=== PATIENT | male | born 1965 | race Caucasian/White ===

== ENCOUNTER → 2016-09-29 | Outpatient (CLI) | payer OTHER ==
[~2016-09-29] MED LIST: AMT50 PO; ATOR-22 PO; CITA40TA12 PO; CLBCRM30 EXT; CLOB-65 EXT; FURO-85 PO; GABA800T PO; GLC/500 PO; GLIP10TA10 PO; INSU1.2I SQ; OXYC-106 PO; TRAM-10 PO
[2016-09-29 09:35] LABS: BASO % 0.6 %; BASO ABS # 0.06 K/uL (0-0.2); COMPLETE YES; EOS % 3.9 %; HEMATOCRIT 44.6 % (42-52); IG% 0.3 %; LYMPH % 39.8 %; LYMPH ABS # 3.93 K/uL (1.2-3.4); MEAN CELL VOLUME 86.9 fL (80-100); MEAN CORPUSCULAR HGB CONC 33.4 g/dl (32-36); MEAN PLATELET VOLUME 10.9 fL (7.4-10.4); MONO % 5.8 %; NEUT % 49.6 %; PLATELET COUNT 245 K/uL (130-400); RED BLOOD COUNT 5.13 M/uL (4.7-6.1); WHITE BLOOD COUNT 9.87 K/uL (4.8-10.8)
[2016-09-29 09:50] LABS: ESTIMATED AVERAGE GLUCOSE 192 mg/dl; HA1C FLAG Normal (Normal)
[2016-09-29 09:57] LABS: ALT/SGPT 20 U/L (12-78); AST/SGOT 6 U/L (15-37); BLOOD UREA NITROGEN 12 mg/dl (7-18); BUN/CREATININE RATIO 15.8 (10-20); CALCIUM 8.7 mg/dl (8.5-10.1); CARBON DIOXIDE 31 mmol/L (21-32); CHLORIDE 102 mmol/L (98-107); CREATININE 0.77 mg/dl (0.60-1.40); GLUCOSE 156 mg/dl (70-99); POTASSIUM 4.2 mmol/L (3.5-5.1); SODIUM 140 mmol/L (136-145); URIC ACID 5.7 mg/dl (2.6-7.2)
[2016-09-29 10:11] LABS: ALB/GLOB RATIO 1.1 (0.9-2); ALKALINE PHOSPHATASE 126 U/L (45-117); CHOLESTEROL 182 mg/dl (0-200); CHOLESTEROL/HDL RATIO 5.1; HDL CHOLESTEROL 36 mg/dl; LDL CHOLESTEROL CALCULATED 97 mg/dl; TRIGLYCERIDES 246 mg/dl (0-150); VERY LOW DENSITY LIPOPROT CALC 49 mg/dl
== END | disposition home or self-care (01) ==
LOC: C.LAB1850 08:46
DX: E11.65 Type 2 diabetes mellitus with hyperglycemia (principal); E78.2 Mixed hyperlipidemia; I70.219 Atherosclerosis of native arteries of extremities with intermittent claudication, unspecified extremity; E66.8 Other obesity

== ENCOUNTER 2017-02-24 11:17 | Emergency (ER) | payer OTHER ==
[~2017-02-24] VITALS: Ht 180.3 cm; Wt 115.2 kg
[~2017-02-24 11:17] MED LIST changes: -CLBCRM30 EXT; -FURO-85 PO; -INSU1.2I SQ; -OXYC-106 PO
[2017-02-24 11:20] VITALS: TEMP 36.5; Ht 180.3 cm; Wt 115.2 kg
[2017-02-24] MEDS ORDERED: FURO-85 PO (11:37)
[2017-02-24] MEDS ORDERED: CLBCRM30 EXT (11:37)
[2017-02-24] MEDS ORDERED: OXYC-106 PO (11:37)
[2017-02-24] MEDS ORDERED: INSU1.2I SQ ×2 (11:37)
--- NOTE | 2017-02-24 13:13 | DIAGNOSTIC IMAGING REPORT ---
ULTRASOUND BILATERAL LOWER EXTREMITY VENOUS CLINICAL HISTORY: Leg swelling. COMPARISON STUDY: No priors. TECHNIQUE: Real-time, grayscale, and color Doppler sonography of the deep veins of the right and left lower extremity was performed from the inguinal crease to the calf. Compression and augmentation were utilized. FINDINGS: There is no sonographic evidence of deep venous thrombosis identified in the right or left lower extremity. The common femoral, superficial femoral, and popliteal veins are patent and normally compressible bilaterally. The greater saphenous vein and the profunda femoris vein at the junction with the common femoral vein are clear in both legs. The visualized calf veins are patent bilaterally. Subcutaneous soft tissue edema is noted. IMPRESSION: There is no sonographic evidence of deep venous thrombosis identified in the right or left lower extremity. Electronically signed by: Nadeem Rollins M.D. 02/24/2017 1:11 PM Dictated Date/Time: 02/24/2017 1:11 PM
--- NOTE | 2017-02-24 13:18 | DIAGNOSTIC IMAGING REPORT ---
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 There is minimal collateral reconstitution of the popliteal artery is monophasic and dampened waveforms. There is minimal low flow states of the 3 arterial structures of the lower leg. IMPRESSION: 1. Occlusion of the proximal to mid superficial femoral artery. 2. Dampened flow distal to the occlusion presumably secondary to a very low flow state Electronically signed by: Jae Saravia M.D. 02/24/2017 1:16 PM Dictated Date/Time: 02/24/2017 1:13 PM
[2017-02-24 14:22] LABS: BASO % 0.3 %; BASO ABS # 0.03 K/uL (0-0.2); COMPLETE YES; EOS % 2.7 %; HEMATOCRIT 41.4 % (42-52); IG% 0.2 %; LYMPH % 34.9 %; LYMPH ABS # 3.33 K/uL (1.2-3.4); MEAN CELL VOLUME 89.8 fL (80-100); MEAN CORPUSCULAR HEMOGLOBIN 29.9 pg (25-34); MEAN CORPUSCULAR HGB CONC 33.3 g/dl (32-36); MEAN PLATELET VOLUME 10.8 fL (7.4-10.4); NEUT % 54.9 %; PLATELET COUNT 214 K/uL (130-400); RED BLOOD COUNT 4.61 M/uL (4.7-6.1); WHITE BLOOD COUNT 9.55 K/uL (4.8-10.8)
[2017-02-24 14:31] LABS: INR 0.9 (0.9-1.1); PROTHROMBIN TIME (PATIENT) 9.8 SECONDS (9.0-12.0)
[2017-02-24 14:46] LABS: BUN/CREATININE RATIO 21.9 (10-20); CALCIUM 9.4 mg/dl (8.5-10.1); CREATININE 0.91 mg/dl (0.60-1.40); POTASSIUM 4.6 mmol/L (3.5-5.1)
[2017-02-24 14:57] VITALS: BP 146/76; PULSE 83; O2SAT 97
--- NOTE | 2017-02-24 18:13 | EMERGENCY ROOM VISIT NOTE ---
History Report prepared by Ramiro: Lilo Mane Under the Supervision of: Dr. Roger Saenz M.D. First contact with patient: 11:33 Chief Complaint: CALF PAIN Stated Complaint: L CALF PAIN W/ EDEMA, R/O DVT History of Present Illness The patient is a 51 year old male who presents to the Emergency Room with complaints of worsening bilateral lower leg pain beginning 2 weeks prior to arrival. The patient states that he is experiencing pain, tenderness and redness to both his lower legs. He states the left is worse than the right. The patient saw his PCP and then sent to [facility] yesterday. He had testing done yesterday and the thought is neuropathy at the moment. He was put on Augmentin and Amoxicillin by his PCP. He was on these antibiotics for 10 days and notes his symptoms improved. He has been off for 4 days and since stopping the antibiotics his symptoms have worsened. The patient was sent to the ED for an Ultrasound to be done to rule out a DVT. The patient has an appointment with vascular on March 04 for artery check. He is a diabetic and states that his sugars have been running normal. He denies chest pain, shortness of breath, fevers, or vomiting. Source of History: patient Onset: 2 weeks [employer]OR [employer]OM[employer] Position: leg (bilateral) Quality: other (pain, tenderness and redness) Timing: worsening Associated Symptoms: No fevers, No chest pain, No SOB, No vomiting Review of Systems See HPI for pertinent positives & negatives. A total of 10 systems reviewed and were otherwise negative. Past Medical & Surgical Medical Problems: (1) Diabetes Family History Cancer Diabetes mellitus FHx: gallbladder disease Heart disease Hypertension Kidney disease Kidney stones Lung disease Social History Smoking Status: Current Every Day Smoker Alcohol Use: none Marital Status: in relationship Housing Status: lives with significant other Occupation Status: unemployed Current/Historical Medications Scheduled Atorvastatin (Lipitor), 20 MG PO DAILY Citalopram Hydrobromide (Celexa), 40 MG PO DAILY Furosemide (Lasix), 20 MG PO BID Gabapentin (Neurontin), 800 MG PO TID Insulin Glargine (Toujeo Solostar), 30 UNITS SQ QAM Insulin Glargine (Toujeo Solostar), 54 UNITS SQ QPM Metformin Hcl (Glucophage), 1,500 MG PO QAM Metformin Hcl (Glucophage), 500 MG PO QPM Scheduled PRN Amitriptyline Hcl (Elavil), 50 MG PO HS PRN for Sleep Oxycodone/Acetaminophen 10MG/325MG (Percocet 10MG/325MG), 1 TAB PO Q6H PRN for Pain Miscellaneous Medications Clobetasol Propionate (Clobetasol Propionate Cream 0.05%), 1 APPLN EXT Allergies Coded Allergies: Aspirin (Verified Allergy, Mild, hives and rash, 02/24/17) Physical Exam Vital Signs Date Time Temp Pulse Resp B/P (MAP) Pulse Ox O2 Delivery O2 Flow Rate FiO2 02/24/17 14:57 83 18 146/76 97 02/24/17 13:22 87 18 144/73 97 Room Air 02/24/17 11:20 36.5 88 20 126/77 96 Room Air Physical Exam Constitutional: Vital signs reviewed. Eyes: Pupils are equal round reactive to light. Conjunctiva are noninjected. ENT: Pharynx is clear without erythema or exudate. Mucous membranes are moist. Neck supple without meningeal signs. Respiratory: Clear to auscultation bilaterally. Breath sounds are equal bilaterally. Cardiovascular: Regular rate and rhythm. No rubs or gallops. GI: Soft, nondistended and nontender. Bowel sounds are present. Musculoskeletal: Bilateral lower extremity edema, greater to left calf. Diffuse tenderness to calf. Capillary refill delayed in both feet. No increased warmth. Bilateral rubor to the feet without paleness or cyanosis. No necrosis to the toes. Integumentary: As above. Neurological: The patient is awake and alert. No focal deficits. Psychiatric: Normal affect. Medical Decision & Procedures ER Provider Diagnostic Interpretation: US results as stated below per my review and radiologist interpretation. ULTRASOUND BILATERAL LOWER EXTREMITY VENOUS CLINICAL HISTORY: Leg swelling. COMPARISON STUDY: No priors. TECHNIQUE: Real-time, grayscale, and color Doppler sonography of the deep veins of the right and left lower extremity was performed from the inguinal crease to the calf. Compression and augmentation were utilized. FINDINGS: There is no sonographic evidence of deep venous thrombosis identified in the right or left lower extremity. The common femoral, superficial femoral, and popliteal veins are patent and normally compressible bilaterally. The greater saphenous vein and the profunda femoris vein at the junction with the common femoral vein are clear in both legs. The visualized calf veins are patent bilaterally. Subcutaneous soft tissue edema is noted. IMPRESSION: There is no sonographic evidence of deep venous thrombosis identified in the right or left lower extremity. Electronically signed by: Nadeem Rollins M.D. 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 There is minimal collateral reconstitution of the popliteal artery is monophasic and dampened waveforms. There is minimal low flow states of the 3 arterial structures of the lower leg. IMPRESSION: 1. Occlusion of the proximal to mid superficial femoral artery. 2. Dampened flow distal to the occlusion presumably secondary to a very low flow state Electronically signed by: Jae Saravia M.D. 02/24/2017 1:16 PM Dictated Date/Time: 02/24/2017 1:13 PM Laboratory Results 02/24/17 14:01 Red Blood Count 4.61, Mean Corpuscular Volume 89.8, Mean Corpuscular Hemoglobin 29.9, Mean Corpuscular Hemoglobin Concent 33.3, Mean Platelet Volume 10.8, Neutrophils (%) (Auto) 54.9, Lymphocytes (%) (Auto) 34.9, Monocytes (%) (Auto) 7.0, Eosinophils (%) (Auto) 2.7, Basophils (%) (Auto) 0.3, Neutrophils # (Auto) 5.24, Lymphocytes # (Auto) 3.33, Monocytes # (Auto) 0.67, Eosinophils # (Auto) 0.26, Basophils # (Auto) 0.03 02/24/17 14:01 Test 02/24/17 14:01 White Blood Count 9.55 K/uL (4.8-10.8) Red Blood Count 4.61 M/uL (4.7-6.1) Hemoglobin 13.8 g/dL (14.0-18.0) Hematocrit 41.4 % (42-52) Mean Corpuscular Volume 89.8 fL (80-100) Mean Corpuscular Hemoglobin 29.9 pg (25-34) Mean Corpuscular Hemoglobin Concent 33.3 g/dl (32-36) Platelet Count 214 K/uL (130-400) Mean Platelet Volume 10.8 fL (7.4-10.4) Neutrophils (%) (Auto) 54.9 % Lymphocytes (%) (Auto) 34.9 % Monocytes (%) (Auto) 7.0 % Eosinophils (%) (Auto) 2.7 % Basophils (%) (Auto) 0.3 % Neutrophils # (Auto) 5.24 K/uL (1.4-6.5) Lymphocytes # (Auto) 3.33 K/uL (1.2-3.4) Monocytes # (Auto) 0.67 K/uL (0.11-0.59) Eosinophils # (Auto) 0.26 K/uL (0-0.5) Basophils # (Auto) 0.03 K/uL (0-0.2) RDW Standard Deviation 43.5 fL (36.4-46.3) RDW Coefficient of Variation 13.2 % (11.5-14.5) Immature Granulocyte % (Auto) 0.2 % Immature Granulocyte # (Auto) 0.02 K/uL (0.00-0.02) Prothrombin Time 9.8 SECONDS (9.0-12.0) Prothromb Time International Ratio 0.9 (0.9-1.1) Activated Partial Thromboplast Time 26.2 SECONDS (21.0-31.0) Partial Thromboplastin Ratio 1.0 Anion Gap 5.0 mmol/L (3-11) Est Creatinine Clear Calc Drug Dose 123.9 ml/min Estimated GFR () 112.7 Estimated GFR (Non- 97.2 BUN/Creatinine Ratio 21.9 (10-20) Calcium Level 9.4 mg/dl (8.5-10.1) Laboratory results as reviewed by me. ED Course 1133: The patient was evaluated in room C1. A complete history and physical exam was performed. 1153: The patient is refusing blood work. 1350: I spoke with Dr. Crow Tran about the patient. He says no acute intervention is needed. He will see the patient is the office tomorrow. bed manager is making the appointment. The patient is good with the plan. 1440: Upon reevaluation, the patient appeared to have improvement of his symptoms. I discussed tonight's findings with him. He verbalized agreement of the treatment plan. He was discharged home. Medical Decision This is a 51-year-old male who presents with left leg pain and swelling. Differential diagnosis includes DVT, superficial thrombophlebitis, arterial occlusion, claudication, cellulitis. I did perform a limited focused review of portions of the patient's old chart on the electronic medical record. The patient has had no recent pertinent visits to this hospital. Medication Reconciliation: I attest that I have personally reviewed the patient' s current medication list. Blood Pressure Screening: Patient was found to have normal blood pressure on screening and does not require follow-up. I did evaluate the patient as noted above. I did an arterial Doppler ultrasound of the left leg and a venous Doppler of both legs. I did review the images myself as well as the radiology report as described above. There is no DVT. He does have occlusion of the superficial femoral artery on the left side. I did order and review the patient's blood work as noted in the electronic medical record. I did discuss the test result with the patient. I did discuss case with Dr. Neff who stated that he would see the patient in the office tomorrow. The field case manager made an appointment for the patient at 9: 30 AM. The patient was discharged and will follow up tomorrow morning with Dr. Neff. Consults Time Called: 1340 Consulting Physician: Dr. Crow Johnson [facility] Returned Call: [address] Crow Johnson [facility] about the patient. He says no acute intervention is needed. He will see the patient is the office tomorrow. bed manager is making the appointment. The patient is good with the plan. Impression Primary Impression: Occlusion of artery of leg Scribe Attestation The scribe's documentation has been prepared under my direct and personally reviewed by me in its entirety. I confirm that the note above accurately reflects all work, treatment, procedures, and medical decision making performed by me. Departure Information Dispostion Home / Self-Care Referrals Rah Lambert M.D. (PCP) Forms HOME CARE DOCUMENTATION FORM, IMPORTANT VISIT INFORMATION Patient Instructions My [facility], O[place] Acute Arterial Additional Instructions You have been examined and treated today on an emergency basis only. This is not a substitute for, or an effort to provide, complete comprehensive medical care. It is impossible to recognize and treat all injuries or illnesses in a single emergency department visit. It is therefore important that you follow up closely with Dr. Neff of vascular surgery tomorrow at 9:30 AM. Return for worsening symptoms or if you develop any other concerning symptoms as outlined in her discharge papers.
== END 2017-02-24 14:59 | disposition home or self-care (01) ==
LOC: C.EDB 11:17 → C.EDC 14:59
DX: I74.3 Embolism and thrombosis of arteries of the lower extremities (principal); E11.9 Type 2 diabetes mellitus without complications; Z80.9 Family history of malignant neoplasm, unspecified; Z83.3 Family history of diabetes mellitus; Z82.49 Family history of ischemic heart disease and other diseases of the circulatory system; Z84.1 Family history of disorders of kidney and ureter; F17.210 Nicotine dependence, cigarettes, uncomplicated; Z79.899 Other long term (current) drug therapy

== ENCOUNTER → 2017-04-13 | Outpatient (CLI) | payer OTHER ==
[~2017-04-13] MED LIST changes: +CLBCRM30 EXT; -CLOB-65 EXT; +FURO-85 PO; -GLIP10TA10 PO; +INSU1.2I SQ; +OXYC-106 PO; -TRAM-10 PO
--- NOTE | 2017-04-13 16:08 | DIAGNOSTIC IMAGING REPORT ---
BILATERAL CAROTID DOPPLER STUDY HISTORY: Atypical CHEST PAIN, Edema, pt WENT TO NUCLE C[facility] FIRST COMPARISON: None. TECHNIQUE: Real-time, grayscale, and color Doppler sonography of the carotid arteries was performed. Imaging reviewed in the transverse and longitudinal planes. All measurements were calculated based on NASCET criteria. FINDINGS: Antegrade flow is seen in the bilateral vertebral arteries. The brachial pressures are hemodynamically similar. There is complete occlusion of the right ICA. This is age indeterminate. Mild to moderate calcified plaque within the left carotid bifurcation. Elevated peak systolic velocity within the right external carotid artery of 222 cm/s. Elevated peak systolic velocity within the left external carotid artery of 422 cm/s. The peak systolic velocity within the left ICA is 192 cm/s proximally. The left systolic ratio is 2.3. IMPRESSION: 1. Complete occlusion of the right ICA which is age indeterminate. 2. Approximately 50-69% stenosis within the proximal left ICA. 3. 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 Electronically signed by: Krunal Tavarez M.D. 04/13/2017 4:06 PM Dictated Date/Time: 04/13/2017 4:03 PM
--- NOTE | 2017-04-13 17:51 | ECHOCARDIOGRAM REPORT ---
*NOTICE TO RECEIVING REPUBLICAN AGENCY This information is strictly Confidential and protected under [place] law. [place] law prohibits you from making any further disclosure of this information unless further disclosure is expressly permitted by the written consent of the person to whom it pertains or is authorized by law. A general authorization for the release of medical or other information is not sufficient for this purpose. Hospital accepts no responsibility if the information is made available to any other person, INCLUDING THE PATIENT. Interpretation Summary * : POR ROSAS Study Date: 04/13/2017 02:20 PM * Patient Location: [facility] HR: 87 * : 1965 (M/d/yyyy) Gender: Male Height: 71 in * Age: 51 yrs Ethnicity: CA Weight: 249 lb * Ordering Physician: Rah Lambert * Referring Physician: Rah Lambert * Performed By: Irina Blanton RCS * * Reason For Study: CHEST PAIN * BSA: 2.3 m2 * -- Conclusions -- * There is moderate concentric left ventricular hypertrophy. * Left ventricular systolic function is normal. * Grade I diastolic dysfunction, (abnormal relaxation pattern). * There are regional wall motion abnormalities as specified. * Aortic valve sclerosis mild, without significant aortic valvular stenosis. Procedure Details * A complete two-dimensional transthoracic echocardiogram was performed (2D, M-mode, Doppler and color flow Doppler). * The study was technically difficult. * A contrast injection of Definity was performed to improve assessment of LV function. * Contrast was injected into an intravenous site in the left arm. * One vial of Definity ultrasound contrast was diluted in normal saline to a total volume of 10 ml. A total of '3' ml of solution was administered during imaging. * Lot # [id number] of Definity utilized for procedure. * Expiration date JUN 02. * The attending nurse who injected the contrast agent was LOIS TUCKER [facility], RN. Left Ventricle * The left ventricle is normal in size. * There is moderate concentric left ventricular hypertrophy. * Left ventricular systolic function is normal. * Grade I diastolic dysfunction, (abnormal relaxation pattern). * Ejection Fraction = 55-60%. * There are regional wall motion abnormalities as specified. * The apical portions of the lateral and anterior wall were moderately hypokinetic Atria * The left atrial size is normal. * Right atrial size is normal. Mitral Valve * The mitral valve is grossly normal. * Significant mitral regurgitation is absent. Tricuspid Valve * The tricuspid valve is not well visualized. * Significant tricuspid regurgitation is absent. Aortic Valve * The aortic valve is not well visualized. * Aortic valve sclerosis mild, without significant aortic valvular stenosis. * No hemodynamically significant valvular aortic stenosis. * There is no significant aortic regurgitation. Great Vessels * The aortic root is normal size. Pericardium/Pleural * There is no pericardial effusion. Great Vessels * Normal inferior vena cava diameter and respiratory variation suggests normal central venous pressure. MMode 2D Measurements and Calculations IVSd 1.5 cm IVSs 1.7 cm LVIDd 4.5 cm LVIDs 3.3 cm LVPWd 1.5 cm LVPWs 1.5 cm IVS/LVPW 0.96 FS 27.4 % EDV(Teich) 92.1 ml ESV(Teich) 42.9 ml EF(Teich) 53.4 % EDV(cubed) 90.7 ml ESV(cubed) 34.7 ml EF(cubed) 61.7 % % IVS thick 16.8 % % LVPW thick -1.73 % LV mass(C)d 275.2 grams LV mass(C)dI 118.9 grams/m\S\2 LV mass(C)s 198.3 grams LV mass(C)sI 85.7 grams/m\S\2 SV(Teich) 49.2 ml SI(Teich) 21.3 ml/m\S\2 SV(cubed) 56.0 ml SI(cubed) 24.2 ml/m\S\2 Ao root diam 3.8 cm Ao root area 11.4 cm\S\2 LA dimension 3.2 cm LA/Ao 0.84 LVOT diam 2.0 cm LVOT area 3.2 cm\S\2 Doppler Measurements and Calculations MV E max levi 72.4 cm/sec MV A max levi 86.5 cm/sec MV E/A 0.84 MV P1/2t max levi 75.3 cm/sec MV P1/2t 65.1 msec MVA(P1/2t) 3.4 cm\S\2 MV dec slope 339.0 cm/sec\S\2 MV dec time 0.23 sec Ao V2 max 154.2 cm/sec Ao max PG 9.5 mmHg Ao max PG (full) 2.3 mmHg ARIANNE(V,A) 2.8 cm\S\2 ARIANNE(V,D) 2.8 cm\S\2 LV V1 max PG 7.2 mmHg LV V1 max 134.4 cm/sec MR max levi 461.4 cm/sec MR max PG 85.2 mmHg PA V2 max 140.1 cm/sec PA max PG 7.8 mmHg
--- NOTE | 2017-04-16 08:37 | MYOCARDIAL PERFUSION SCAN ---
STUDY TITLE: ONE-DAY NUCLEAR MEDICINE TECHNETIUM-99M CARDIOLITE MYOCARDIAL PERFUSION SCAN STUDY REQUESTED BY: Dr. Lambert. INDICATION: Lower extremity swelling, chest symptoms. EKG: Normal sinus rhythm, ventricular rate of 80 with a right bundle branch block, no significant ST abnormalities. STRESS EKG: Resting heart rate jimena from 80 to 103 representing 60% of maximum predicted heart rate. With stress he had [address] depressions in leads 2, aVF, V5 and V6. STUDY TECHNIQUE: For the stress portion of the study 34.0 mCi of technetium-99m Cardiolite IV was injected at 1325 on 04/13/2019. Thirty minutes following the injection, imaging of the heart was performed in multiple projections. For the rest portion of the study, 11.1 mCi of technetium-99m Cardiolite was injected IV at 11:30. One hour following injection, imaging of the heart was performed in the same projections. FINDINGS: Rotating raw images were reviewed in detail. There was minimal vertical motion most notable on stress. Also, minimal gut uptake impacting the inferior imaging border of the heart. There was no significant extracardiac pathologic uptake. Short axis, vertical long axis, horizontal long axis images were reviewed in detail. There was suggestion of RVH. There was questionable visual TID. There was a moderate to severe anterior, anteroseptal defect from the mid segment to the apex which was partially reversible. Overall sum difference score of 5. LV ejection fraction was 39%. LV was mildly dilated with end-diastolic volume of 198. There was severe apical, mid anterior and anterior septal wall hypokinesis. IMPRESSION: 1. Partially reversible perfusion defect involving the mid anterior, anteroseptal dodge to the apex consistent with possible LAD infarct with periinfarct ischemia. 2. Moderate LV dysfunction with an EF of 39%. Apical and mid anterior anteroseptal severe hypokinesis. 3. Positive Lexiscan EKG for ischemia with ST depressions in 2, aVF, V5 and V6. MTDD
== END | disposition home or self-care (01) ==
LOC: C.ULTR 11:14
DX: R07.9 Chest pain, unspecified (principal); R60.9 Edema, unspecified; E78.2 Mixed hyperlipidemia; I70.219 Atherosclerosis of native arteries of extremities with intermittent claudication, unspecified extremity; I65.23 Occlusion and stenosis of bilateral carotid arteries

== ENCOUNTER 2017-06-16 13:50 | Emergency (ER) | payer OTHER ==
[~2017-06-16] VITALS: Ht 180.3 cm; Wt 116.0 kg
[2017-06-16 14:03] VITALS: TEMP 37; Ht 180.3 cm; Wt 116.0 kg
--- NOTE | 2017-06-16 14:45 | DIAGNOSTIC IMAGING REPORT ---
SINGLE VIEW CHEST CLINICAL HISTORY: Fever. FINDINGS: An AP, portable, upright chest radiograph is obtained. No prior studies are available for comparison at the time of dictation. The examination is degraded by portable technique, large body habitus, and patient rotation. The heart is enlarged. The pulmonary vasculature is noncongested. There is mild bibasilar atelectasis. The lungs and pleural spaces are otherwise clear. No pneumothorax is seen. The bony thorax is grossly intact. IMPRESSION: Cardiomegaly with no acute cardiopulmonary abnormality. Electronically signed by: Nadeem Rollins M.D. 06/16/2017 2:44 PM Dictated Date/Time: 06/16/2017 2:43 PM
--- NOTE | 2017-06-16 14:49 | DIAGNOSTIC IMAGING REPORT ---
L TIBIA/FIBULA 2 VIEWS ROUTINE CLINICAL HISTORY: Left person pain. Fever. COMPARISON: None FINDINGS: No fracture within the left tibia or fibula is identified. There is no radiographic evidence of osteomyelitis. There is a possible wound of the anterolateral aspect of the left lower leg. No radiopaque foreign bodies are identified. There is left lower extremity edema. IMPRESSION: 1. No acute fracture or radiographic evidence of osteomyelitis within left tibia or fibula. 2. Possible left lower leg wound, as described above. No radiopaque foreign body. Left lower extremity edema. Electronically signed by: Valeriy Arce M.D. 06/16/2017 2:48 PM Dictated Date/Time: 06/16/2017 2:44 PM
[2017-06-16 15:00] LABS: HEMATOCRIT 31.5 % (42-52); MEAN CELL VOLUME 88.2 fL (80-100); MEAN CORPUSCULAR HEMOGLOBIN 29.1 pg (25-34); MEAN PLATELET VOLUME 9.4 fL (7.4-10.4); PLATELET COUNT 450 K/uL (130-400); RED BLOOD COUNT 3.57 M/uL (4.7-6.1)
[2017-06-16] MEDS ORDERED: MoRPHine SULFATE 4 MG/ML 1 ML CARP\\VIAL IV STA (15:08)
[2017-06-16 15:18] LABS: PROTHROMBIN TIME (PATIENT) 10.8 SECONDS (9.0-12.0)
[2017-06-16 15:22] LABS: BUN/CREATININE RATIO 29.3 (10-20); CALCIUM 9.1 mg/dl (8.5-10.1); CREATININE 0.82 mg/dl (0.60-1.40); POTASSIUM 4.4 mmol/L (3.5-5.1)
[2017-06-16 15:23] LABS: BASO % 0.2 %; BASO ABS # 0.06 K/uL (0-0.2); COMPLETE YES; EOS % 0.2 %; IG% 0.8 %; LYMPH % 7.8 %; LYMPH ABS # 2.35 K/uL (1.2-3.4); MONO % 7.1 %; NEUT % 83.9 %
[2017-06-16 15:31] LABS: CKMB/CK RATIO 1.6 (0-3.0)
[2017-06-16] MEDS ORDERED: VANCOMYCIN INJ 2,250 MG in SODIUM CHLORIDE 0.9% 500ML 500 ML IV STA (15:34)
[2017-06-16] MEDS ORDERED: SODIUM CHLORIDE 0.9% 1000ML 2,000 ML IV STA (15:34)
[2017-06-16] MEDS ORDERED: ONDANSETRON INJ 2 MG/ML 2 ML VIAL IV STA (15:34)
[2017-06-16] MEDS ORDERED: FRS/80 PO (15:43)
[2017-06-16] MEDS ORDERED: NTRGSL/4 UT (15:43)
[2017-06-16] MEDS ORDERED: METF-384 PO (15:43)
[2017-06-16] MEDS ORDERED: INSDGI SC ×2 (15:43)
[2017-06-16] MEDS ORDERED: ATOR-26 PO (15:43)
[2017-06-16] MEDS ORDERED: AMIT25TA9 PO (15:43)
[2017-06-16] MEDS ORDERED: ASPI81TA28 PO (15:46)
[2017-06-16] MEDS ORDERED: POTA-74 PO (15:46)
[2017-06-16] MEDS ORDERED: CARV3.122 PO (15:46)
[2017-06-16] MEDS ORDERED: POTA20TA13 PO (15:46)
[2017-06-16] MEDS ORDERED: DOCU-94 PO (15:46)
[2017-06-16] MEDS ORDERED: CLINDAMYCIN IV 600 MG in DEXTROSE 5% 50ML 50 ML IV ONE (16:15)
[2017-06-16] MEDS ORDERED: PIPERACILLIN/TAZOBACTAM 4.5 GM/100ML D5W IV STA (16:15)
[2017-06-16] MEDS ORDERED: CEFTRIAXONE SOD INJ 1,000 MG in DEXTROSE 5% 50ML 50 ML IV SCH (17:30)
[2017-06-16] MEDS ORDERED: ONDANSETRON INJ 2 MG/ML 2 ML VIAL IV PRN (17:30)
[2017-06-16] MEDS ORDERED: ACETAMINOPHEN 325 MG TAB PO PRN (17:30)
[2017-06-16] MEDS ORDERED: POLYETHYLENE (MIRALAX) 17 GM PACK PO PRN (17:30)
[2017-06-16] MEDS ORDERED: MAGNESIUM HYDROXIDE SUSP 30 ML UDC PO PRN (17:30)
[2017-06-16] MEDS ORDERED: ALUMINUM/MAGNESIUM/SIMETH (MAALOX MAX) 30 ML UDC PO PRN (17:30)
--- NOTE | 2017-06-16 19:04 | Medical Consult ---
Consultation Date of Consultation: Jun 16, 2017. Attending Physician: History of Present Illness consult #[id number] Family History Cancer Diabetes mellitus FHx: gallbladder disease Heart disease Hypertension Kidney disease Kidney stones Lung disease Social History Smoking Status: Current Every Day Smoker Marital Status: in relationship Housing Status: lives with significant other Occupation Status: unemployed Allergies Coded Allergies: Aspirin (Verified Allergy, Mild, hives and rash, 02/24/17) Current Inpatient Medications Current Inpatient Medications Medications (Trade) Dose Ordered Sig/Marc Route Start Time Stop Time Status Last Admin Dose Admin Vancomycin HCl 1000 mg/Sodium Chloride 270 ml @ 125 mls/hr Q12 IV 06/16/17 21:00 06/26/17 20:59 UNV Ceftriaxone Sodium 1000 mg/ Dextrose 60 ml @ 100 mls/hr Q24H IV 06/16/17 17:30 06/26/17 17:29 UNV Acetaminophen (Tylenol Tab) 650 mg Q4H PRN PO 06/16/17 17:30 07/16/17 17:29 Al Hydrox/Mg Hydrox/Simethicone (Maalox Max Susp) 15 ml Q4H PRN PO 06/16/17 17:30 07/16/17 17:29 Magnesium Hydroxide (Milk Of Magnesia Susp) 30 ml Q12H PRN PO 06/16/17 17:30 07/16/17 17:29 Ondansetron HCl (Zofran Inj) 4 mg Q6H PRN IV 06/16/17 17:30 07/16/17 17:29 Polyethylene (Miralax Powder Packet) 17 gm DAILY PRN PO 06/16/17 17:30 07/16/17 17:29 Physical Exam Date Time Temp Pulse Resp B/P (MAP) Pulse Ox O2 Delivery O2 Flow Rate FiO2 06/16/17 18:00 100 22 115/80 98 Nasal Cannula 2.0 06/16/17 16:00 92 20 121/69 93 Nasal Cannula 2.0 06/16/17 14:03 37.0 92 20 117/67 94 Room Air Laboratory Results Last 24 Hours Test 06/16/17 14:44 06/16/17 14:52 White Blood Count 30.00 K/uL Red Blood Count 3.57 M/uL Hemoglobin 10.4 g/dL Hematocrit 31.5 % Mean Corpuscular Volume 88.2 fL Mean Corpuscular Hemoglobin 29.1 pg Mean Corpuscular Hemoglobin Concent 33.0 g/dl Platelet Count 450 K/uL Mean Platelet Volume 9.4 fL Neutrophils (%) (Auto) 83.9 % Lymphocytes (%) (Auto) 7.8 % Monocytes (%) (Auto) 7.1 % Eosinophils (%) (Auto) 0.2 % Basophils (%) (Auto) 0.2 % Neutrophils # (Auto) 25.16 K/uL Lymphocytes # (Auto) 2.35 K/uL Monocytes # (Auto) 2.14 K/uL Eosinophils # (Auto) 0.05 K/uL Basophils # (Auto) 0.06 K/uL RDW Standard Deviation 45.4 fL RDW Coefficient of Variation 13.9 % Immature Granulocyte % (Auto) 0.8 % Immature Granulocyte # (Auto) 0.24 K/uL Prothrombin Time 10.8 SECONDS Prothromb Time International Ratio 1.0 Sodium Level 135 mmol/L Potassium Level 4.4 mmol/L Chloride Level 102 mmol/L Carbon Dioxide Level 26 mmol/L Anion Gap 8.0 mmol/L Blood Urea Nitrogen 24 mg/dl Creatinine 0.82 mg/dl Est Creatinine Clear Calc Drug Dose 138.0 ml/min Estimated GFR () 118.7 Estimated GFR (Non- 102.4 BUN/Creatinine Ratio 29.3 Random Glucose 202 mg/dl Calcium Level 9.1 mg/dl Magnesium Level 2.0 mg/dl Total Bilirubin 0.2 mg/dl Direct Bilirubin 0.1 mg/dl Aspartate Amino Transf (AST/SGOT) 12 U/L Alanine Aminotransferase (ALT/SGPT) 24 U/L Alkaline Phosphatase 226 U/L Total Creatine Kinase 88 U/L Creatine Kinase MB 1.4 ng/ml Creatine Kinase MB Ratio 1.6 Troponin I 0.805 ng/ml Total Protein 7.4 gm/dl Albumin 2.4 gm/dl Bedside Lactic Acid Venous 0.78 mmol/L
--- NOTE | 2017-06-16 19:58 | EMERGENCY ROOM VISIT NOTE ---
History Report prepared by Ramiro: Lexy Sanchez Under the Supervision of: Dr. Efrain Plata D.O. First contact with patient: 14:05 Chief Complaint: OTHER COMPLAINT Stated Complaint: AMS/WOUND TO LEG History of Present Illness The patient is a 51 year old male who presents to the Emergency Room with complaints of persistent left leg pain starting [employer]. The patient was scheduled to have his left lower leg amputated today for necrotic ulcers. He did not go to his appointment and states that he has been putting it off. His leg is very painful. He took Tylenol 2 hours ago. He is not on antibiotics. The pain is unchanged. He is unable to get up to go to the bathroom. Today his girlfriend was concerned because he had had a bowel movement in bed. His son states that he has been confused. He is alternating between being hot and sweaty and chills. He had a fever of 101 last night. He denies any headache, cough, rhinorrhea, chest pain, SOB, abdominal pain, nausea, vomiting, diarrhea, dysuria , back pain. He has a history of diabetic neuropathy. Source of History: patient, family Onset: P[employer]ATOR Position: leg (left) Quality: other (pain) Timing: other (persistent) Associated Symptoms: + fevers, + chills, + diaphoresis, No headache, No cough, No chest pain, No SOB, No nausea, No vomiting, No abdominal pain, No back pain, No diarrhea, No urinary symptoms Note: Pt is confused. Review of Systems See HPI for pertinent positives & negatives. A total of 10 systems reviewed and were otherwise negative. Past Medical & Surgical Medical Problems: (1) Diabetes (2) Sepsis Family History Cancer Diabetes mellitus FHx: gallbladder disease Heart disease Hypertension Kidney disease Kidney stones Lung disease Social History Smoking Status: Current Every Day Smoker Alcohol Use: none Marital Status: in relationship Housing Status: lives with significant other Occupation Status: unemployed Current/Historical Medications Scheduled Amitriptyline Hcl (Elavil), 25 MG PO HS Aspirin (Aspirin Ec), 81 MG PO DAILY Atorvastatin (Lipitor), 80 MG PO DAILY Carvedilol (Coreg), 3.125 MG PO BID Citalopram Hydrobromide (Celexa), 40 MG PO DAILY Docusate Sodium (Colace), 100 MG PO BID Furosemide (Lasix), 80 MG PO DAILY Gabapentin (Neurontin), 800 MG PO BID Insulin Glargine (Lantus), 30 UNITS SC QAM Insulin Glargine (Lantus), 40 UNITS SC QPM Metformin Hcl (Glucophage), 1,000 MG PO BID Oxycodone/Acetaminophen 10MG/325MG (Percocet 10MG/325MG), 1 TAB PO TID Potassium Chloride Microencaps (Potassium Chloride Er), 20 MEQ PO DAILY Scheduled PRN Nitroglycerin (Nitrostat), 0.4 MG UT UD PRN for Chest Pain Allergies Coded Allergies: Aspirin (Verified Allergy, Mild, hives and rash, 02/24/17) Physical Exam Vital Signs Date Time Temp Pulse Resp B/P (MAP) Pulse Ox O2 Delivery O2 Flow Rate FiO2 06/16/17 19:07 130 16 170/80 93 Nasal Cannula 3.0 06/16/17 18:00 100 22 115/80 98 Nasal Cannula 2.0 06/16/17 16:00 92 20 121/69 93 Nasal Cannula 2.0 06/16/17 14:03 37.0 92 20 117/67 94 Room Air Physical Exam GENERAL: Sitting up in bed, ill appearing, pale, slightly confused EYE EXAM: normal conjunctiva. OROPHARYNX: no exudate, no erythema, lips, buccal mucosa, and tongue normal and mucous membranes are moist NECK: supple, no nuchal rigidity, no adenopathy, non-tender LUNGS: Clear to auscultation. Normal chest wall mechanics HEART: no murmurs, S1 normal and S2 normal ABDOMEN: abdomen soft, non-tender, normo-active bowel sounds, no masses, no rebound or guarding. BACK: Back is symmetrical on inspection and there is no deformity, no midline tenderness, no CVA tenderness. SKIN: no rashes and no bruising UPPER EXTREMITIES: upper extremities are grossly normal. LOWER EXTREMITIES: Unable to obtain pulses. Erythema of the foot, person, and popliteal fossa. Necrotic ulcers on the left ankle superiorly to the mid calf. Foul smelling green purulent discharge. 4cm x 4cm. NEURO EXAM: Alert and oriented to place, but not year. Confused per son. No focal deficits. Unable to plantar and dorsiflex LLE. Medical Decision & Procedures ER Provider Diagnostic Interpretation: Radiology results as stated below per my review and the radiologist's interpretation: SINGLE VIEW CHEST CLINICAL HISTORY: Fever. FINDINGS: An AP, portable, upright chest radiograph is obtained. No prior studies are available for comparison at the time of dictation. The examination is degraded by portable technique, large body habitus, and patient rotation. The heart is enlarged. The pulmonary vasculature is noncongested. There is mild bibasilar atelectasis. The lungs and pleural spaces are otherwise clear. No pneumothorax is seen. The bony thorax is grossly intact. IMPRESSION: Cardiomegaly with no acute cardiopulmonary abnormality. Electronically signed by: Nadeem Rollins M.D. 06/16/2017 2:44 PM Dictated Date/Time: 06/16/2017 2:43 PM L TIBIA/FIBULA 2 VIEWS ROUTINE CLINICAL HISTORY: Left person pain. Fever. COMPARISON: None FINDINGS: No fracture within the left tibia or fibula is identified. There is no radiographic evidence of osteomyelitis. There is a possible wound of the anterolateral aspect of the left lower leg. No radiopaque foreign bodies are identified. There is left lower extremity edema. IMPRESSION: 1. No acute fracture or radiographic evidence of osteomyelitis within left tibia or fibula. 2. Possible left lower leg wound, as described above. No radiopaque foreign body. Left lower extremity edema. Electronically signed by: Valeriy Arce M.D. 06/16/2017 2:48 PM Dictated Date/Time: 06/16/2017 2:44 PM Laboratory Results 06/16/17 14:44 Red Blood Count 3.57, Mean Corpuscular Volume 88.2, Mean Corpuscular Hemoglobin 29.1, Mean Corpuscular Hemoglobin Concent 33.0, Mean Platelet Volume 9.4, Neutrophils (%) (Auto) 83.9, Lymphocytes (%) (Auto) 7.8, Monocytes (%) (Auto) 7.1, Eosinophils (%) (Auto) 0.2, Basophils (%) (Auto) 0.2, Neutrophils # (Auto) 25.16, Lymphocytes # (Auto) 2.35, Monocytes # (Auto) 2.14, Eosinophils # (Auto) 0.05, Basophils # (Auto) 0.06 06/16/17 14:44 Test 06/16/17 14:44 06/16/17 14:52 White Blood Count 30.00 K/uL (4.8-10.8) Red Blood Count 3.57 M/uL (4.7-6.1) Hemoglobin 10.4 g/dL (14.0-18.0) Hematocrit 31.5 % (42-52) Mean Corpuscular Volume 88.2 fL (80-100) Mean Corpuscular Hemoglobin 29.1 pg (25-34) Mean Corpuscular Hemoglobin Concent 33.0 g/dl (32-36) Platelet Count 450 K/uL (130-400) Mean Platelet Volume 9.4 fL (7.4-10.4) Neutrophils (%) (Auto) 83.9 % Lymphocytes (%) (Auto) 7.8 % Monocytes (%) (Auto) 7.1 % Eosinophils (%) (Auto) 0.2 % Basophils (%) (Auto) 0.2 % Neutrophils # (Auto) 25.16 K/uL (1.4-6.5) Lymphocytes # (Auto) 2.35 K/uL (1.2-3.4) Monocytes # (Auto) 2.14 K/uL (0.11-0.59) Eosinophils # (Auto) 0.05 K/uL (0-0.5) Basophils # (Auto) 0.06 K/uL (0-0.2) RDW Standard Deviation 45.4 fL (36.4-46.3) RDW Coefficient of Variation 13.9 % (11.5-14.5) Immature Granulocyte % (Auto) 0.8 % Immature Granulocyte # (Auto) 0.24 K/uL (0.00-0.02) Prothrombin Time 10.8 SECONDS (9.0-12.0) Prothromb Time International Ratio 1.0 (0.9-1.1) Anion Gap 8.0 mmol/L (3-11) Est Creatinine Clear Calc Drug Dose 138.0 ml/min Estimated GFR () 118.7 Estimated GFR (Non- 102.4 BUN/Creatinine Ratio 29.3 (10-20) Calcium Level 9.1 mg/dl (8.5-10.1) Magnesium Level 2.0 mg/dl (1.8-2.4) Total Bilirubin 0.2 mg/dl (0.2-1) Direct Bilirubin 0.1 mg/dl (0-0.2) Aspartate Amino Transf (AST/SGOT) 12 U/L (15-37) Alanine Aminotransferase (ALT/SGPT) 24 U/L (12-78) Alkaline Phosphatase 226 U/L (45-117) Total Creatine Kinase 88 U/L (39-308) Creatine Kinase MB 1.4 ng/ml (0.5-3.6) Creatine Kinase MB Ratio 1.6 (0-3.0) Troponin I 0.805 ng/ml (0-0.045) Total Protein 7.4 gm/dl (6.4-8.2) Albumin 2.4 gm/dl (3.4-5.0) Bedside Lactic Acid Venous 0.78 mmol/L (0.90-1.70) Laboratory results per my review. Medications Administered Medications (Trade) Dose Ordered Sig/Marc Route Start Time Stop Time Status Last Admin Dose Admin Morphine Sulfate (MoRPHine SULFATE INJ) 4 mg NOW STAT IV 06/16/17 15:08 06/16/17 15:09 DC 06/16/17 15:19 4 MG Sodium Chloride 2,000 ml @ 999 mls/hr Q2H1M STAT IV 06/16/17 15:34 06/16/17 17:34 DC 06/16/17 16:11 999 MLS/HR Ondansetron HCl (Zofran Inj) 4 mg NOW STAT IV 06/16/17 15:34 06/16/17 15:36 DC 06/16/17 16:11 4 MG Vancomycin HCl 2250 mg/Sodium Chloride 545 ml @ 200 mls/hr ONE STAT IV 06/16/17 15:34 06/16/17 18:17 DC 06/16/17 16:11 200 MLS/HR Piperacillin Sod/ Tazobactam Sod (Zosyn Iv) 4.5 gm NOW STAT IV 06/16/17 16:15 06/16/17 16:16 DC 06/16/17 16:15 4.5 GM Clindamycin Phosphate 600 mg/ Dextrose 54 ml @ 100 mls/hr NOW ONCE IV 06/16/17 16:15 06/16/17 16:47 DC 06/16/17 16:15 100 MLS/HR ECG Indication: altered mental status Rate (beats per minute): 92 Rhythm: sinus rhythm Findings: nonspecific-ST abn (Lateral), Q waves (Septal), RBBB, other (normal axis) ED Course ED COURSE: Vital signs were reviewed and showed normal vitals The patients medical record was reviewed The above diagnostic studies were performed and reviewed. ED treatments and interventions as stated above. 1412: The patient was evaluated in room C1B. A complete history and physical examination was performed. 1508: Morphine Sulfate 4 mg IV. 1534: Vancomycin HCl 2250 mg/Sodium Chloride 545 ml @ 200 mls/hr IV, Zofran Inj 4 mg IV, NSS 2000 ml @ 999 mls/hr IV. 1615: Clindamycin Phosphate 600 mg/Dextrose 54 ml @ 100 mls/hr IV, Zosyn Iv 4.5 gm IV. 1611: Upon reevaluation, the patient is stable. I discussed my findings with the patient and he understands and agrees with the treatment plan. Based on the patients age, coexisting illnesses, exam and lab findings the decision to treat as an inpatient was made. The patient remained stable while under my care. The patient will be evaluated for further management. 1729: I reviewed the patient's case with Dr. Padron, [facility] [place] hospitalist. He will evaluate the patient for further management. Medical Decision Differential diagnosis includes etiologies such as sepsis, UTI, pneumonia, metabolic, electrolyte abnormalities, cardiac sources, intracerebral event, toxicologic, neurologic, as well as others were entertained. Patient is a 51-year-old male who presents to ER for fevers of 101 associated with confusion and infection in his left lower leg. He supposed to have this agitated this morning at 8 AM. She has no other complaints at this time. He has a clear infection in the left lower extremity. Labs show a leukocytosis of 30,000. X-ray shows no subcutaneous air. Vital showed a mild tachycardia. BMP shows hyperglycemia. Lactate was not elevated. Troponin was elevated at 0.8. Favor secondary to demand ischemia. Patient was given IV vancomycin, Zosyn and clindamycin. Updated family at bedside. Discussed with internal medicine. Patient was admitted. He was monitored closely while in the ER. He was given 2 L normal saline. Systolic blood pressures maintained. Patient and family request to be transferred to [facility] where he should've had his surgery earlier this morning. He was accepted. Transfer paperwork was completed. Medication Reconcilliation Current Medication List: was personally reviewed by me Blood Pressure Screening Patient's blood pressure: Normal blood pressure Blood pressure disposition: Did not require urgent referral Consults Time Called: 1614 Consulting Physician: Dr. Padron [facility] [place] hospitalist Returned Call: [phone] I reviewed the patient's case with him. He will evaluate the patient for further management. Impression Primary Impression: Sepsis Additional Impressions: Cellulitis of left lower extremity Elevated troponin level Critical Care I have personally spent 35 minutes of critical care time in the direct management of this patient. This includes bedside care, interpretation of diagnostic studies, and testing, discussion with consultants, patient, and family members, and other required patient management activities. This 35 minutes is in excess of all separately billable procedures. Scribe Attestation The scribe's documentation has been prepared under my direction and personally reviewed by me in its entirety. I confirm that the note above accurately reflects all work, treatment, procedures, and medical decision making performed by me. Departure Information Dispostion Being Evaluated By Hospitalist Rah Rodriguez M.D. (PCP) Patient Instructions [facility] Problem Qualifiers Primary Impression: Sepsis Sepsis type: sepsis due to unspecified organism Qualified Codes: A41.9 - Sepsis, unspecified organism
--- NOTE | 2017-06-16 20:10 | CONSULTATION REPORT ---
DATE OF CONSULTATION: 06/16/2017 REASON FOR CONSULTATION: Sepsis from left lower extremity. HISTORY OF PRESENT ILLNESS: The patient is a 51-year-old male. History is obtained from the patient as well as his son. He apparently has longstanding known severe peripheral vascular disease and was actually scheduled for an elective amputation at [facility] earlier today. It sounds like because of anxiety he did not show up for the surgery but unfortunately last night he had a fever of about 101 and he has had ongoing worsening leg pain as well as ulceration and exudate. He had severe pain and was brought here to the ER because of the pain and the fever and the fact that he was supposed to have surgery and did not. REVIEW OF SYSTEMS: Denies any chest pain or pressure. Denies any shortness of breath, has no nausea, no vomiting, no abdominal pain. On directive questioning notes if that was not for how terrible his left lower extremity was, he would feel at about his baseline level of health. His son also notes that he believes he currently has a bit of a dental abscess. Review of system is also positive for chills, otherwise negative except for as above. PAST MEDICAL HISTORY: Appears to be severe diffuse atherosclerotic arterial disease including coronary artery disease, peripheral vascular disease. He also is a diabetic. MEDICATIONS: Include metformin, Glargine, gabapentin, Lasix, citalopram and atorvastatin. FAMILY HISTORY: It sounds like vascular disease is very prevalent in his family and also there is diabetes in his mother and father. SOCIAL HISTORY: He is a smoker. No significant alcohol. ALLERGIES: HE IS LISTED BEING ALLERGIC TO ASPIRIN, THE REACTION IS NOTED TO BE HIVES AND A RASH. PHYSICAL EXAMINATION: VITAL SIGNS: Temperature here is 37, pulse 92, respiratory rate 20, blood pressure 117/67, 94% on room air. GENERAL: He is awake, alert, oriented x3. He is appearing in pain, at times writhing in the bed, at times more calm. He is a little bit sleepy worse sometimes, it will take repeated stimulation to keep him conversing, but he is oriented. HEENT: Normocephalic, atraumatic. Mucous membranes are moist. CARDIOVASCULAR: Regular, very distant. No rubs, murmurs, or gallops. LUNGS: Markedly diminished bibasilar bilaterally. No rales, rhonchi, or wheezes with good effort. ABDOMEN: Soft, nondistended, nontender, no masses or organomegaly. EXTREMITIES: Show bilateral degrees duskiness, the left worse than the right. He has very thickened flaky scaling skin. His right lower extremity is fairly nontender without crepitus, without erythema and without cords, maybe a few scattered more shallow ulcerations. His left lower extremity has multiple black ulcerations with a bit of a blue-green rim on a few. There is questionable crepitus proximal particularly to the ulcer more medial. He has multiple ulcerations, exudates and again clear evidence of necrosis. He does not have pain or erythema streaking up his leg and there is nothing overtly positive proximal to his knee. NEUROLOGIC: Shows cranial nerves II-XII to be grossly intact. Gross motor and sensory are intact. SKIN: As above. EXTREMITIES: He has no other rashes, pallor or icterus. MENTAL STATUS: Shows good recent and remote recall. Anxious mood and affect but fitting with the situation. MUSCULOSKELETAL: Yields no gross lesions. Full exam deferred due to his situation. LABS AND DIAGNOSTICS: His CBC shows a white count of 30 with 84% neutrophils, hemoglobin 10.4 with an MCV of 88.2, platelets 450. Complete metabolic panel with sodium 135, potassium 4.4, chloride 102, CO2 26, BUN 24, creatinine 0.82, calcium 9.1, glucose 202, lactate 0.78. Mag 2.0. Total bili 0.2 with a direct of 0.1, AST 12, ALT 24, alkaline phosphatase 226. CK total is 88 with an MB of 1.4. Troponin of 0.805 for reference upper limits of normal for our lab is 0.045. Albumin is 2.4, total protein 7.4. PT of 10.8. EKG is sinus with a right bundle and left anterior hemiblock, but no acute ischemic changes, questionable Q-waves in V1 and V2 versus slight uptick no old EKGs are available. Chest x-ray shows cardiomegaly and no acute cardiopulmonary abnormality. It is a somewhat degraded film because of technique, body habitus and patient rotation and tib-fib x-ray shows no fracture, no radiographic evidence of osteomyelitis and possible wound anterior lateral aspect of left lower leg. No foreign bodies. Left lower extremity edema. ASSESSMENT AND PLAN: 1. Sepsis. This appears to be related to his left lower extremity cellulitis and ulcerations. He fortunately does not have renal failure. There was question of whether or not his mental status was reflective of a septic encephalopathy but appears more from pain and fatigue. Given that with stimulation, he is awake, alert and oriented. He has been started on vancomycin, Zosyn and clindamycin. We will continue the vancomycin, Zosyn and clindamycin particularly given concern with a little bit of crepitus. He is being accepted in transfer by vascular surgery service, so we will withhold further imaging for now given that; number one, he will be evaluated on arrival by the surgical team and number 2, the anticipated plan be on antibiotics, is obviously amputation so even if there is gangrenous process at play, the surgical solution would be the treatment of choice which is already being planned. He is stable for transfer via ground. 2. Elevated troponin. This is almost certainly demand ischemia from his sepsis superimposed on his known coronary disease. We would certainly follow his clinical picture and give strong consideration to trending troponins but he shows no anginal symptoms and no ischemic EKG changes. His EKG, obviously we do not have old to compare, but shows no ST elevations, depressions or concerning flipped Ts. 4. Diabetes, management per the surgical team on arrival, likely with insulin. 5. Mild to moderate protein malnutrition, postop nutrition management. 6. Anemia, uncertain baseline, but he does not show any signs or symptoms of active bleeding. 7. Deep venous thrombosis prophylaxis per the surgical team.
[2017-06-16 20:38] VITALS: BP 145/72; PULSE 124; O2SAT 93
[2017-06-16] MEDS ORDERED: VANCOMYCIN CONSULT ACTIVE PRN (21:30)
--- NOTE | 2017-06-16 21:58 | Pharmacy Progress Note ---
Pharmacy Antibiotic Consult Date of Service: Jun 16, 2017. Pharmacy Dosing Scope Pharmacy is consulted to initiate vancomycin IV dosing therapy, order appropriate labs and adjust drug dose/frequency. Subjective The patient is a 51 year old male admitted on 06-16. Objective Height (Feet): 5 Height (Inches): 11.00 Weight (Kilograms): 116.000 Lab Results (24hrs): Test 06/16/17 14:44 06/16/17 14:52 06/16/17 21:17 White Blood Count 30.00 K/uL (4.8-10.8) Red Blood Count 3.57 M/uL (4.7-6.1) Hemoglobin 10.4 g/dL (14.0-18.0) Hematocrit 31.5 % (42-52) Mean Corpuscular Volume 88.2 fL (80-100) Mean Corpuscular Hemoglobin 29.1 pg (25-34) Mean Corpuscular Hemoglobin Concent 33.0 g/dl (32-36) Platelet Count 450 K/uL (130-400) Mean Platelet Volume 9.4 fL (7.4-10.4) Neutrophils (%) (Auto) 83.9 % Lymphocytes (%) (Auto) 7.8 % Monocytes (%) (Auto) 7.1 % Eosinophils (%) (Auto) 0.2 % Basophils (%) (Auto) 0.2 % Neutrophils # (Auto) 25.16 K/uL (1.4-6.5) Lymphocytes # (Auto) 2.35 K/uL (1.2-3.4) Monocytes # (Auto) 2.14 K/uL (0.11-0.59) Eosinophils # (Auto) 0.05 K/uL (0-0.5) Basophils # (Auto) 0.06 K/uL (0-0.2) RDW Standard Deviation 45.4 fL (36.4-46.3) RDW Coefficient of Variation 13.9 % (11.5-14.5) Immature Granulocyte % (Auto) 0.8 % Immature Granulocyte # (Auto) 0.24 K/uL (0.00-0.02) Prothrombin Time 10.8 SECONDS (9.0-12.0) Prothromb Time International Ratio 1.0 (0.9-1.1) Sodium Level 135 mmol/L (136-145) Potassium Level 4.4 mmol/L (3.5-5.1) Chloride Level 102 mmol/L (98-107) Carbon Dioxide Level 26 mmol/L (21-32) Anion Gap 8.0 mmol/L (3-11) Blood Urea Nitrogen 24 mg/dl (7-18) Creatinine 0.82 mg/dl (0.60-1.40) Est Creatinine Clear Calc Drug Dose 138.0 ml/min Estimated GFR () 118.7 Estimated GFR (Non- 102.4 BUN/Creatinine Ratio 29.3 (10-20) Random Glucose 202 mg/dl (70-99) Calcium Level 9.1 mg/dl (8.5-10.1) Magnesium Level 2.0 mg/dl (1.8-2.4) Total Bilirubin 0.2 mg/dl (0.2-1) Direct Bilirubin 0.1 mg/dl (0-0.2) Aspartate Amino Transf (AST/SGOT) 12 U/L (15-37) Alanine Aminotransferase (ALT/SGPT) 24 U/L (12-78) Alkaline Phosphatase 226 U/L (45-117) Total Creatine Kinase 88 U/L (39-308) Creatine Kinase MB 1.4 ng/ml (0.5-3.6) Creatine Kinase MB Ratio 1.6 (0-3.0) Troponin I 0.805 ng/ml (0-0.045) Total Protein 7.4 gm/dl (6.4-8.2) Albumin 2.4 gm/dl (3.4-5.0) Bedside Lactic Acid Venous 0.78 mmol/L (0.90-1.70) Bedside Glucose 229 mg/dl (70-99) Assessment & Plan Patient started on vancomycin and rocephin (not consult) for possible sepsis related to his lower extremity cellulitis/ulcerations. Vascular surgery consulted for possible amputation. BC x 2 are ordered. Vancomycin: * Pt received LD of vancomycin 2250 mg x 1 in the ED * Will start MD of vancomycin 1500 mg (~13mg/kg) iv q 10 hrs to achieve an estimated trough ~15-20 mcg/ml (goal for sepsis/soft tissue infxn with ulcer) * Estimated kinetics: t1/2~ 9hrs, ke~0.08 hr-1, CrCl ~138 ml/min (used CrCl max of ~100 ml/min to calculate dose) * Will plan to obtain a trough prior to the 0800 dose on 06/18 to ensure therapeutic; note patient with elevated BMI>/=35 kg/m2 so will monitor closely for accumulation Pharmacy will continue to follow and will adjust dose/frequency as necessary. Thank you
[2017-06-17] MEDS ORDERED: VANCOMYCIN INJ 1,500 MG in SODIUM CHLORIDE 0.9% 500ML 500 ML IV SCH (02:00)
[2017-06-18] MEDS ORDERED: VANCOMYCIN TROUGH ONE (07:30)
== END 2017-06-16 21:39 | disposition short-term general hospital (02) ==
LOC: EDBD 13:50 → C.EDC 13:51 → CANRESERV 17:51 → ENRESERV 17:51 → CANRESERV 18:07 → CANBEDREQ 18:20 → C.EDC 21:39
DX: A41.9 Sepsis, unspecified organism (principal); L03.116 Cellulitis of left lower limb; R79.89 Other specified abnormal findings of blood chemistry; E11.9 Type 2 diabetes mellitus without complications; Z83.3 Family history of diabetes mellitus; Z82.49 Family history of ischemic heart disease and other diseases of the circulatory system; F17.200 Nicotine dependence, unspecified, uncomplicated; Z79.82 Long term (current) use of aspirin; Z79.4 Long term (current) use of insulin

== ENCOUNTER → 2017-11-22 | Outpatient (CLI) | payer OTHER ==
[~2017-11-22] MED LIST changes: +AMIT25TA9 PO; -AMT50 PO; +ASPI81TA28 PO; -ATOR-22 PO; +ATOR-26 PO; +CARV3.122 PO; -CLBCRM30 EXT; +DOCU-94 PO; +FRS/80 PO; -FURO-85 PO; -GLC/500 PO; +INSDGI SC; -INSU1.2I SQ; +METF-384 PO; +NTRGSL/4 UT; +POTA20TA13 PO
[2017-11-22 10:20] LABS: HEMATOCRIT 40.6 % (42-52); HEMOGLOBIN 13.1 g/dL (14.0-18.0); MEAN CELL VOLUME 87.5 fL (80-100); MEAN CORPUSCULAR HEMOGLOBIN 28.2 pg (25-34); MEAN CORPUSCULAR HGB CONC 32.3 g/dl (32-36); MEAN PLATELET VOLUME 10.3 fL (7.4-10.4); PLATELET COUNT 263 K/uL (130-400); RED CELL DISTRIBUTION WIDTH CV 14.9 % (11.5-14.5); RED CELL DISTRIBUTION WIDTH SD 47.6 fL (36.4-46.3)
[2017-11-22 10:39] LABS: ALBUMIN 3.5 gm/dl (3.4-5.0); ALT/SGPT 27 U/L (12-78); AST/SGOT 14 U/L (15-37); BLOOD UREA NITROGEN 31 mg/dl (7-18); CALCIUM 8.5 mg/dl (8.5-10.1); CARBON DIOXIDE 30 mmol/L (21-32); CREATININE 1.21 mg/dl (0.60-1.40); GLUCOSE 102 mg/dl (70-99); POTASSIUM 4.7 mmol/L (3.5-5.1); SODIUM 135 mmol/L (136-145)
[2017-11-22 10:49] LABS: ALKALINE PHOSPHATASE 99 U/L (45-117); CHOLESTEROL 171 mg/dl (0-200); LDL CHOLESTEROL CALCULATED 78 mg/dl; TOTAL PROTEIN 7.4 gm/dl (6.4-8.2)
[2017-11-22 11:04] LABS: HEMOGLOBIN A1C 7.7 % (4.5-5.6)
== END | disposition home or self-care (01) ==
LOC: C.LAB1850 09:22
PROVIDERS: ATTEND Physician Assistant
DX: E08.42 Diabetes mellitus due to underlying condition with diabetic polyneuropathy (principal)

== ENCOUNTER 2019-04-30 18:06 | Inpatient (IN) ==
--- OUTSIDE RECORDS SUMMARY | 2019-04-30 18:09 | External Medical Summary | Continuity of Care Document ---
:1965 Author Name Sonu Lockett, Provider Address Unavailable Unavailable , Care Team Providers Name Role Phone NiurkaG Levy, Provider Unavailable [email or web address] Unavailable Unavailable Unavailable Unavailable Problems Neuropathy (355.9) (G62.9) Obesity (278.00) (E66.9) ALIA (generalized anxiety disorder) (300.02) (F41.1) Bilateral leg pain (729.5) (M79.604) Diabetes mellitus, type 2 (250.00) (E11.9) Hyperlipidemia (272.4) (E78.5) Hypertension (401.9) (I10) Tobacco abuse (305.1) (Z72.0) Preop examination (V72.84) (Z01.818) Venous insufficiency (459.81) (I87.2) Claudication (443.9) (I73.9) Allergies and Adverse Reactions Aspirin TABS (Allergy) Medications Bernabe Microlet Lancets MISC; Test 4 times daily Start: 15-Nov-2014 Refills: 0 Bernabe Contour Test STRP; USE 4 TIMES PER DAY Start: 15-Nov-2014 Refills: 0 glipiZIDE 10 MG Oral Tablet; TAKE 1 TABLET DAILY. Refills: 0 Lipitor 20 MG Oral Tablet; TAKE 1 TABLET BY MOUTH DAILY Refills: 0 traMADol HCl - 50 MG Oral Tablet; TAKE 1 TABLET THREE TIMES A DAY NEEDED Quantity: 90 Refills: 1 metFORMIN HCl - 500 MG Oral Tablet; TAKE 2 TABLET Twice amaury y Quantity: 120 Refills: 1 Gabapentin 800 MG Oral Tablet; TAKE 1 TABLET 3 TIMES DAILY. Refills: 0 Clobetasol Propionate 0.05 % External Cream Refills: 0 Elavil 50 MG TABS; TAKE 1 TABLET DAILY AT BEDTIME. Refills: 0 CeleXA 40 MG Oral Tablet; TAKE 1 TABLET DAILY. Refills: 0 Procedures Procedures not documented Immunizations Immunizations not documented Family History Unknown Family Member Family history of peripheral vascular disease Status: Active Comments: Family History (V17.49) (Z82.49) Father Family history of peripheral vascular disease (V17.49) (Z82. 49) Status: Active Social History - Smoking Status Current every day smoker Plan of Treatment Planned Observations Planned Goals not documented Results No Known Results Results not documented
--- NOTE | 2019-04-30 19:05 | XRay Report ---
XR chest 1V portable CLINICAL HISTORY: Chest pain. COMPARISON STUDY: Chest radiograph June 16, 2017. FINDINGS: Lung volumes are normal. Lungs are clear. There is no pneumothorax or pleural effusion. Car diomediastinal silhouette is stable. Mediastinal contours are normal. There is no evidence for pulmon aniyah edema. IMPRESSION: No acute cardiopulmonary findings. Electronically signed by: Valeriy Arce M.D. 04/30/2019 7:04 PM
[2019-04-30] MEDS ORDERED: SODIUM CHLORIDE 0.9% 500 ML IV ONE (19:15)
[2019-04-30 19:19] LABS: iSTAT Creatinine 2.3 mg/dl (0.6-1.3); iSTAT Hemoglobin 12.6 g/dl (14.0-18.0); iSTAT Ionized Calcium 1.02 mmol/l (1.12-1.32); iSTAT Potassium 6.1 mEq/L (3.3-5.0)
[2019-04-30 19:54] LABS: Albumin Globulin Ratio 0.8 (0.9-2); BUN Creatinine Ratio 29.9 (10-20); Bilirubin,Total 0.5 mg/dl (0.2-1); Calcium 8.1 mg/dl (8.5-10.1); Creatinine Clr Calc Pharmacy 45.6 ml/min; Est GFR (African American) 34.9; Est GFR (Non-African American) 30.1; Globulin 3.7 gm/dl (2.5-4.0); Magnesium 2.3 mg/dl (1.8-2.4); Total Protein 6.7 gm/dl (6.4-8.2); Troponin I 0.028 ng/ml (0-0.045)
[2019-04-30] MEDS ORDERED: ALBUTEROL 0.083% NEBU SOLN 3 ML VIAL NEB STA (19:56)
[2019-04-30] MEDS ORDERED: CALCIUM GLUCONATE 10% 1,000 MG in SODIUM CHLORIDE 0.9% 50 ML IV STA (19:56)
[2019-04-30] MEDS ORDERED: NovoLIN-R INSULIN PER UNIT CHARGE IV STA (19:56)
[2019-04-30] MEDS ORDERED: SODIUM CHLORIDE 0.9% 1000ML 1,000 ML IV ONE (20:01)
[2019-04-30 20:17] LABS: INR 0.9 (0.9-1.1); Partial Thromboplastin Ratio 0.9; Partial Thromboplastin Time 24.2 Seconds (21.0-31.0); Prothrombin Time 9.3 Seconds (9.0-12.0)
[2019-04-30 20:18] LABS: Basophils # (auto) 0.04 K/uL (0-0.2); Basophils % (auto) 0.4 %; Eosinophils % (auto) 5.1 %; Hematocrit (blood only) 35.9 % (42-52); Hemoglobin 11.7 g/dL (14.0-18.0); Immature Granulocytes # (auto) 0.03 K/uL (0.00-0.02); Immature Granulocytes % (auto) 0.3 %; Lymphocytes # (auto) 2.84 K/uL (1.2-3.4); Lymphocytes % (auto) 28.7 %; Mean Corpuscular Hemoglobin 29.6 pg (25-34); Mean Corpuscular Hgb Conc 32.6 g/dL (32-36); Mean Corpuscular Volume 90.9 fL (80-100); Mean Platelet Volume 11.4 fL (7.4-10.4); Monocytes % (auto) 5.1 %; Neutrophils # (auto) 5.97 K/uL (1.4-6.5); Neutrophils % (auto) 60.4 %; Platelet Count 243 K/uL (130-400); RDW Standard Deviation 46.5 fL (36.4-46.3); Red Blood Count 3.95 M/uL (4.7-6.1); White Blood Count 9.88 K/uL (4.8-10.8)
--- NOTE | 2019-04-30 21:06 | CT Scan Report ---
CT OF THE HEAD WITHOUT CONTRAST CLINICAL HISTORY: Left-sided weakness. Stroke evaluation. COMPARISON STUDY: No previous studies for comparison. CT DOSE: 884.08 mGy.cm TECHNIQUE: Helical axial images of the head were obtained without IV contrast. Automated exposure con trol was utilized for the study. A dose lowering technique was utilized adhering to the principles o f ALARA. FINDINGS: No acute intracranial hemorrhage, midline shift or mass effect is present. Ventricular syst em is normal. The basilar cisterns are patent. There are no extra-axial collections. A 1 cm hypodensi ty within the right caudate nucleus is noted. There is hypodensity within the right occipital lobe as well. The basilar cisterns are patent. There are no extra-axial collections. There are no findings t o suggest acute dural sinus thrombosis or acute territorial infarct. Exam is mildly compromised by mo tion artifact. There are no significant calvarial abnormalities. A few white matter hypodensity sugge sts small vessel disease. IMPRESSION: 1. No acute intracranial hemorrhage or mass effect. 2. 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 3. 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 An underlying mass is con sidered less likely however a follow-up nonemergent MRI of the brain with and without contrast is rec ommended. Electronically signed by: Valeriy Arce M.D. 04/30/2019 9:04 PM
--- NOTE | 2019-04-30 21:42 | Emergency Department Note ---
Entered by Ernestine Hsieh acting as a scribe for History of Present Illness General Chief complaint: Stroke/CVA Symptoms Stated complaint: CAN'T USE HANDS,SLURRING WORDS,WEAKNESS Source: patient History of Present Illness Provider complaint: Stroke/CVA Symptoms Onset (ago): day(s) 1 Location: head Radiation: extremity (Left) Maximum Pain Intensity: 0 Exacerbated By: + none Associated symptoms: + other (Chest discomfort ); no chest pain, no fever/chills, no headaches and no shortness of breath The patient is a 53 year old male who presents to the Emergency Room with complaints of CVA/Stroke symptoms that began this morning, 7am. The patient states that the symptoms radiate to his left arm and is not exacerbated by anything. The patient's family notes that the patient was having a hard time getting his words out. The patient reports feeling some chest discomfort earlier but denies any pain. The patient denies any fever/chills, headaches, or shortness of breath. Home Medications Home Medications Medication Instructions Recorded Confirmed Type gabapentin [Neurontin] 800 mg PO BID #0 tab 10/03/14 04/30/19 History oxycodone-acetaminophen [Percocet] 1 tab PO TID PRN #0 tab 02/24/17 04/30/19 History amitriptyline 25 mg PO HS #0 tab 06/16/17 04/30/19 History aspirin 81 mg PO BID #0 06/16/17 04/30/19 History atorvastatin [Lipitor] 80 mg PO PM #0 tab 06/16/17 04/30/19 History carvedilol [Coreg] 3.125 mg PO BID #0 tab 06/16/17 04/30/19 History docusate sodium [Colace] 100 mg PO BID #0 cap 06/16/17 04/30/19 History furosemide [Lasix] 80 mg PO PM #0 tab 06/16/17 04/30/19 History metformin [Glucophage] 1,000 mg PO BID #0 tab 06/16/17 04/30/19 History nitroglycerin [Nitrostat] 0.4 mg SUBLINGUAL UD PRN #0 btl 06/16/17 04/30/19 History acetaminophen [Tylenol Extra 1,000 mg PO QID PRN 04/30/19 04/30/19 History Strength] duloxetine [Cymbalta] 60 mg PO QAM 04/30/19 04/30/19 History ibuprofen 400 mg PO Q6H PRN 04/30/19 04/30/19 History insulin glargine 32 unit SUBCUT AMPM 04/30/19 04/30/19 History Allergies Allergy/AdvReac Type Severity Reaction Status Date / Time No Known Allergies Allergy Unverified 04/30/19 19:36 Past Med/Surg History Medical History Diabetes type 2, controlled Family History Other No pertinent family history in first degree relatives Social History Feels Safe at Home: Yes Smoking Status: Current every day smoker Review of Systems See HPI for pertinent positives & negatives. and A total of 10 systems reviewed and were otherwise negative Physical Exam Vital Signs Vital Signs - 24 hr 04/30/19 18:10 04/30/19 18:48 04/30/19 20:50 Temperature 36.6 C Temperature Source Oral Sepsis Recent Fever Within 48 Hours No Sepsis Action Taken by Nursing No Action Required Pulse Rate 100 H Pulse Rate [Apical] 97 H 95 H Respiratory Rate 20 20 Respiratory Effort / Characteristics Non-Labored Spontaneous Respiratory Depth Normal Normal Blood Pressure 82/51 L Blood Pressure [Left Arm] 110/76 94/51 L Blood Pressure Mean 61 Blood Pressure Mean [Left Arm] 87 65 Blood Pressure Position [Left Arm] Sitting Pulse Oximetry 100 95 94 Oxygen Delivery Method Room Air Room Air Room Air 04/30/19 21:02 Temperature Temperature Source Sepsis Recent Fever Within 48 Hours Sepsis Action Taken by Nursing Pulse Rate Pulse Rate [Apical] 93 H Respiratory Rate 17 Respiratory Effort / Characteristics Non-Labored Respiratory Depth Blood Pressure Blood Pressure [Left Arm] Blood Pressure Mean Blood Pressure Mean [Left Arm] Blood Pressure Position [Left Arm] Pulse Oximetry 95 Oxygen Delivery Method Room Air GENERAL: Awake, alert, in no distress HENT: Normocephalic, atraumatic. EYES: Normal conjunctiva. Sclera non-icteric. NECK: Supple. No nuchal rigidity. RESPIRATORY: Clear to auscultation. Slight expiratory wheeze. Normal respiratory effort. CARDIAC: Normal rate. Normal rhythm. Extremities warm and well perfused. GI: Soft, non-distended. No tenderness to palpation. No rebound or guarding. No masses. RECTAL: Deferred. MUSCULOSKELETAL: Atraumatic. Chest examination reveals no tenderness. LOWER EXTREMITIES: Calves are equal size bilaterally and non-tender. Left mid thigh amputation well-healed. Right lower extremity chronic stasis changes with scattered ulcerations. No crepitus or significant discharge. NEURO: Normal sensorium. No sensory or motor deficits noted. No facial droop. No aphasia or slurred speech. Slight left pronator drift and slight ataxia with left handed finger to nose. SKIN: Warm and dry. No jaundice noted. Course 1822: Past medical records reviewed. The patient was evaluated in room B06. A complete history and physical exam was performed. 2143: I spoke with Dr. Clements about the patient's case and he will accept the patient for further evaluation. Administered Medications Discontinued Medications Albuterol (Ventolin 0.083% 2.5mg/3ml) 2.5 mg NEB NOW STA Stop: 04/30/19 19:57 Last Admin: 04/30/19 21:02 Dose: 2.5 mg Documented by: [id number] Clopidogrel Bisulfate (Plavix) 75 mg PO NOW ONE Stop: 04/30/19 22:43 Last Admin: 04/30/19 23:12 Dose: 75 mg Documented by: [id number] Sodium Chloride (Nss) 500 mls @ 999 mls/hr IV .Q31M ONE Stop: 04/30/19 19:45 Last Infusion: 04/30/19 20:06 Dose: 0 mls/hr Documented by: [id number] Admin: 04/30/19 19:23 Dose: 999 mls/hr Documented by: [id number] Calcium Gluconate 1,000 mg/ (Sodium Chloride) 60 mls @ 240 mls/hr IV NOW STA Stop: 04/30/19 20:10 Last Infusion: 04/30/19 21:06 Dose: 0 mls/hr Documented by: [id number] Admin: 04/30/19 20:50 Dose: 240 mls/hr Documented by: [id number] Sodium Chloride (Nss 1000ml) 1,000 mls @ 999 mls/hr IV .Q1H1M ONE Stop: 04/30/19 21:01 Last Infusion: 04/30/19 21:06 Dose: 0 mls/hr Documented by: [id number] Admin: 04/30/19 20:03 Dose: 999 mls/hr Documented by: [id number] Insulin Human Regular (Novolin R U-100 Per Unit) 10 units IV NOW STA Stop: 04/30/19 19:57 Last Admin: 04/30/19 20:03 Dose: 10 units Documented by: [id number] Cosigned by: [id number] Medical Decision Making Differential Diagnosis Differential diagnoses includes but is not limited to toxic, metabolic, infectious, traumatic, cardiac, neurologic, hematologic, psychiatric and inflammatory etiologies. Medical Records Attestation: I reviewed the patient's medical records. Home Medications Current Medication List: was personally reviewed by me Laboratory Data Attestation: I reviewed the patient's lab results. Result diagrams: 04/30/19 19:50 04/30/19 22:20 Lab Results 04/30/19 04/30/19 04/30/19 Range/Units 18:42 18:42 18:42 WBC Cancelled RBC Cancelled Hgb Cancelled POC Hgb (14.0-18.0) g/dl Hct Cancelled POC Hct (42-52) % MCV Cancelled MCH Cancelled MCHC Cancelled RDW Std Deviation Cancelled RDW Coeff of Taisha Cancelled Plt Count Cancelled MPV Cancelled Immature Gran % (Auto) Cancelled Neut % (Auto) Cancelled Lymph % (Auto) Cancelled [place] % (Auto) Cancelled Eos % (Auto) Cancelled Baso % (Auto) Cancelled Immature Gran # (Auto) Cancelled Neut # (Auto) Cancelled Lymph # (Auto) Cancelled [place] # (Auto) Cancelled Eos # (Auto) Cancelled Baso # (Auto) Cancelled Absolute Nucleated RBC Cancelled Nucleated RBC % (auto) Cancelled Neutrophils % (Manual) Cancelled Band Neutrophils % Cancelled Lymphocytes % (Manual) Cancelled Prolymphocyte % Cancelled Reactive Lymphs % (Man) Cancelled Monocytes % (Manual) Cancelled Eosinophils % (Manual) Cancelled Basophils % (Manual) Cancelled Metamyelocytes % (Man) Cancelled Myelocytes % (Man) Cancelled Promyelocytes % (Man) Cancelled Blast Cells % (Manual) Cancelled Plasma Cell % (Manual) Cancelled Other Cells % Cancelled Nucleated RBC % Cancelled Neutrophils # (Manual) Cancelled Band Neutrophils # Cancelled Total Absolute Neuts Cancelled Lymphocytes # (Manual) Cancelled Prolymphocyte # Cancelled Reactive Lymphs # Cancelled Total Abs Lymphocytes Cancelled Monocytes # (Manual) Cancelled Eosinophils # (Manual) Cancelled Basophils # (Manual) Cancelled Metamyelocytes # (Man) Cancelled Myelocytes # (Manual) Cancelled Promyelocytes # (Man) Cancelled Blast Cells # (Man) Cancelled Plasma Cell # (Manual) Cancelled Other Cells # Cancelled Nucleated RBCs # (Man) Cancelled Hypersegmented Neuts Cancelled Hyposegmented Neuts Cancelled Hypogranular Neuts Cancelled Large Granular Lymphs Cancelled # Lrg Granular Lymphs Cancelled Hairy Cells Cancelled Smudge Cells Cancelled Toxic Granulation Cancelled Toxic Vacuolation Cancelled Dohle Bodies Cancelled Marla Rods Cancelled Platelet Estimate Cancelled Hypogranular Platelets Cancelled Clumped Platelets Cancelled Giant Platelets Cancelled Platelet Satelliting Cancelled RBC Morphology Cancelled Polychromasia Cancelled Hypochromasia Cancelled Poikilocytosis Cancelled Basophilic Stippling Cancelled Anisocytosis Cancelled Microcytosis Cancelled Macrocytosis Cancelled Spherocytes Cancelled Pappenheimer Bodies Cancelled Sickle Cells Cancelled Target Cells Cancelled Tear Drop Cells Cancelled Ovalocytes Cancelled Stomatocytes Cancelled Jones-St. John Bodies Cancelled Echinocytes Cancelled Acanthocytes (Spur) Cancelled Rouleaux Cancelled RBC Agglutinates Cancelled Schistocytes Cancelled RBC Morph Comment Cancelled Sezary Cell Cancelled PT 9.3 (9.0-12.0) Seconds INR 0.9 (0.9-1.1) APTT 24.2 (21.0-31.0) Seconds PTT Ratio 0.9 VBG pH (7.36-7.41) VBG pCO2 (38-50) mmHg VBG pO2 mmHg VBG HCO3 mmol/L VBG O2 Saturation % VBG Base Excess mEq/L Barometric Pressure mm/Hg POC Sodium (135-144) mEq/L Sodium 134 L (136-145) mmol/L POC Potassium (3.3-5.0) mEq/L Potassium 6.0 H (3.5-5.1) mmol/L POC Chloride (101-112) mEq/L Chloride 96 L (98-107) mmol/L Carbon Dioxide 27 (21-32) mmol/L POC Total CO2 (24-31) mEq/l Anion Gap 11.0 (3-11) POC Anion Gap (16-25) mmol/L POC BUN (7-18) mg/dl BUN 71 H (7-18) mg/dl Creatinine 2.37 H (0.6-1.4) mg/dl POC Creatinine (0.6-1.3) mg/dl Est Cr Clr Drug Dosing 45.6 ml/min Est GFR ( Amer) 34.9 Est GFR (Non-Af Amer) 30.1 BUN/Creatinine Ratio 29.9 H (10-20) Glucose 515 H* (70-99) mg/dl POC Glucose (70-99) POC Glucose (other) (70-99) mg/dl Osmolality (280-300) mOsm/kg POC Lactic Acid Walt (0.90-1.70) mmol/L Lactate (0.4-2.0) mmol/L Calcium 8.1 L (8.5-10.1) mg/dl POC Ioniz Calcium Obey (1.12-1.32) mmol/l Magnesium 2.3 (1.8-2.4) mg/dl Total Bilirubin 0.5 (0.2-1) mg/dl AST 8 L (15-37) U/L ALT 16 (12-78) U/L Alkaline Phosphatase 158 H (45-117) U/L Ammonia (11-32) umol/L Total Creatine Kinase (39-308) U/L Troponin I 0.028 (0-0.045) ng/ml Total Protein 6.7 (6.4-8.2) gm/dl Albumin 3.0 L (3.4-5.0) gm/dl Globulin 3.7 (2.5-4.0) gm/dl Albumin/Globulin Ratio 0.8 L (0.9-2) Beta-Hydroxybutyric Acd (0.2-2.81) mg/dl TSH (0.300-4.500) uIu/ml Ethyl Alcohol mg/dL (0-3) mg/dl Blood Type Antibody Screen 04/30/19 04/30/19 04/30/19 Range/Units 18:42 18:50 19:00 WBC RBC Hgb POC Hgb (14.0-18.0) g/dl Hct POC Hct (42-52) % MCV MCH MCHC RDW Std Deviation RDW Coeff of Taisha Plt Count MPV Immature Gran % (Auto) Neut % (Auto) Lymph % (Auto) [place] % (Auto) Eos % (Auto) Baso % (Auto) Immature Gran # (Auto) Neut # (Auto) Lymph # (Auto) [place] # (Auto) Eos # (Auto) Baso # (Auto) Absolute Nucleated RBC Nucleated RBC % (auto) Neutrophils % (Manual) Band Neutrophils % Lymphocytes % (Manual) Prolymphocyte % Reactive Lymphs % (Man) Monocytes % (Manual) Eosinophils % (Manual) Basophils % (Manual) Metamyelocytes % (Man) Myelocytes % (Man) Promyelocytes % (Man) Blast Cells % (Manual) Plasma Cell % (Manual) Other Cells % Nucleated RBC % Neutrophils # (Manual) Band Neutrophils # Total Absolute Neuts Lymphocytes # (Manual) Prolymphocyte # Reactive Lymphs # Total Abs Lymphocytes Monocytes # (Manual) Eosinophils # (Manual) Basophils # (Manual) Metamyelocytes # (Man) Myelocytes # (Manual) Promyelocytes # (Man) Blast Cells # (Man) Plasma Cell # (Manual) Other Cells # Nucleated RBCs # (Man) Hypersegmented Neuts Hyposegmented Neuts Hypogranular Neuts Large Granular Lymphs # Lrg Granular Lymphs Hairy Cells Smudge Cells Toxic Granulation Toxic Vacuolation Dohle Bodies Marla Rods Platelet Estimate Hypogranular Platelets Clumped Platelets Giant Platelets Platelet Satelliting RBC Morphology Polychromasia Hypochromasia Poikilocytosis Basophilic Stippling Anisocytosis Microcytosis Macrocytosis Spherocytes Pappenheimer Bodies Sickle Cells Target Cells Tear Drop Cells Ovalocytes Stomatocytes Jones-St. John Bodies Echinocytes Acanthocytes (Spur) Rouleaux RBC Agglutinates Schistocytes RBC Morph Comment Sezary Cell PT (9.0-12.0) Seconds INR (0.9-1.1) APTT (21.0-31.0) Seconds PTT Ratio VBG pH (7.36-7.41) VBG pCO2 (38-50) mmHg VBG pO2 mmHg VBG HCO3 mmol/L VBG O2 Saturation % VBG Base Excess mEq/L Barometric Pressure mm/Hg POC Sodium (135-144) mEq/L Sodium (136-145) mmol/L POC Potassium (3.3-5.0) mEq/L Potassium (3.5-5.1) mmol/L POC Chloride (101-112) mEq/L Chloride (98-107) mmol/L Carbon Dioxide (21-32) mmol/L POC Total CO2 (24-31) mEq/l Anion Gap (3-11) POC Anion Gap (16-25) mmol/L POC BUN (7-18) mg/dl BUN (7-18) mg/dl Creatinine (0.6-1.4) mg/dl POC Creatinine (0.6-1.3) mg/dl Est Cr Clr Drug Dosing ml/min Est GFR ( Amer) Est GFR (Non-Af Amer) BUN/Creatinine Ratio (10-20) Glucose (70-99) mg/dl POC Glucose (70-99) POC Glucose (other) (70-99) mg/dl Osmolality 333 H (280-300) mOsm/kg POC Lactic Acid Walt 2.60 H (0.90-1.70) mmol/L Lactate (0.4-2.0) mmol/L Calcium (8.5-10.1) mg/dl POC Ioniz Calcium Obey (1.12-1.32) mmol/l Magnesium (1.8-2.4) mg/dl Total Bilirubin (0.2-1) mg/dl AST (15-37) U/L ALT (12-78) U/L Alkaline Phosphatase (45-117) U/L Ammonia (11-32) umol/L Total Creatine Kinase (39-308) U/L Troponin I (0-0.045) ng/ml Total Protein (6.4-8.2) gm/dl Albumin (3.4-5.0) gm/dl Globulin (2.5-4.0) gm/dl Albumin/Globulin Ratio (0.9-2) Beta-Hydroxybutyric Acd (0.2-2.81) mg/dl TSH (0.300-4.500) uIu/ml Ethyl Alcohol mg/dL < 3.0 (0-3) mg/dl Blood Type Antibody Screen 04/30/19 04/30/19 04/30/19 Range/Units 19:04 19:50 21:17 WBC 9.88 RBC 3.95 L Hgb 11.7 L POC Hgb 12.6 L (14.0-18.0) g/dl Hct 35.9 L POC Hct 37 L (42-52) % MCV 90.9 MCH 29.6 MCHC 32.6 RDW Std Deviation 46.5 H RDW Coeff of Taisha 14.0 Plt Count 243 MPV 11.4 H Immature Gran % (Auto) 0.3 Neut % (Auto) 60.4 Lymph % (Auto) 28.7 [place] % (Auto) 5.1 Eos % (Auto) 5.1 Baso % (Auto) 0.4 Immature Gran # (Auto) 0.03 H Neut # (Auto) 5.97 Lymph # (Auto) 2.84 [place] # (Auto) 0.50 Eos # (Auto) 0.50 Baso # (Auto) 0.04 Absolute Nucleated RBC Nucleated RBC % (auto) Neutrophils % (Manual) Band Neutrophils % Lymphocytes % (Manual) Prolymphocyte % Reactive Lymphs % (Man) Monocytes % (Manual) Eosinophils % (Manual) Basophils % (Manual) Metamyelocytes % (Man) Myelocytes % (Man) Promyelocytes % (Man) Blast Cells % (Manual) Plasma Cell % (Manual) Other Cells % Nucleated RBC % Neutrophils # (Manual) Band Neutrophils # Total Absolute Neuts Lymphocytes # (Manual) Prolymphocyte # Reactive Lymphs # Total Abs Lymphocytes Monocytes # (Manual) Eosinophils # (Manual) Basophils # (Manual) Metamyelocytes # (Man) Myelocytes # (Manual) Promyelocytes # (Man) Blast Cells # (Man) Plasma Cell # (Manual) Other Cells # Nucleated RBCs # (Man) Hypersegmented Neuts Hyposegmented Neuts Hypogranular Neuts Large Granular Lymphs # Lrg Granular Lymphs Hairy Cells Smudge Cells Toxic Granulation Toxic Vacuolation Dohle Bodies Marla Rods Platelet Estimate Hypogranular Platelets Clumped Platelets Giant Platelets Platelet Satelliting RBC Morphology Polychromasia Hypochromasia Poikilocytosis Basophilic Stippling Anisocytosis Microcytosis Macrocytosis Spherocytes Pappenheimer Bodies Sickle Cells Target Cells Tear Drop Cells Ovalocytes Stomatocytes Jones-St. John Bodies Echinocytes Acanthocytes (Spur) Rouleaux RBC Agglutinates Schistocytes RBC Morph Comment Sezary Cell PT (9.0-12.0) Seconds INR (0.9-1.1) APTT (21.0-31.0) Seconds PTT Ratio VBG pH (7.36-7.41) VBG pCO2 (38-50) mmHg VBG pO2 mmHg VBG HCO3 mmol/L VBG O2 Saturation % VBG Base Excess mEq/L Barometric Pressure mm/Hg POC Sodium 131 L (135-144) mEq/L Sodium (136-145) mmol/L POC Potassium 6.1 H* (3.3-5.0) mEq/L Potassium (3.5-5.1) mmol/L POC Chloride 97 L (101-112) mEq/L Chloride (98-107) mmol/L Carbon Dioxide (21-32) mmol/L POC Total CO2 29 (24-31) mEq/l Anion Gap (3-11) POC Anion Gap 12.0 L (16-25) mmol/L POC BUN 65 H (7-18) mg/dl BUN (7-18) mg/dl Creatinine (0.6-1.4) mg/dl POC Creatinine 2.3 H (0.6-1.3) mg/dl Est Cr Clr Drug Dosing ml/min Est GFR ( Amer) Est GFR (Non-Af Amer) BUN/Creatinine Ratio (10-20) Glucose (70-99) mg/dl POC Glucose 415 H* (70-99) POC Glucose (other) 510 H* (70-99) mg/dl Osmolality (280-300) mOsm/kg POC Lactic Acid Walt (0.90-1.70) mmol/L Lactate (0.4-2.0) mmol/L Calcium (8.5-10.1) mg/dl POC Ioniz Calcium Obey 1.02 L (1.12-1.32) mmol/l Magnesium (1.8-2.4) mg/dl Total Bilirubin (0.2-1) mg/dl AST (15-37) U/L ALT (12-78) U/L Alkaline Phosphatase (45-117) U/L Ammonia (11-32) umol/L Total Creatine Kinase (39-308) U/L Troponin I (0-0.045) ng/ml Total Protein (6.4-8.2) gm/dl Albumin (3.4-5.0) gm/dl Globulin (2.5-4.0) gm/dl Albumin/Globulin Ratio (0.9-2) Beta-Hydroxybutyric Acd (0.2-2.81) mg/dl TSH (0.300-4.500) uIu/ml Ethyl Alcohol mg/dL (0-3) mg/dl Blood Type Antibody Screen 04/30/19 04/30/19 04/30/19 Range/Units 22:20 22:20 22:20 WBC RBC Hgb POC Hgb (14.0-18.0) g/dl Hct POC Hct (42-52) % MCV MCH MCHC RDW Std Deviation RDW Coeff of Taisha Plt Count MPV Immature Gran % (Auto) Neut % (Auto) Lymph % (Auto) [place] % (Auto) Eos % (Auto) Baso % (Auto) Immature Gran # (Auto) Neut # (Auto) Lymph # (Auto) [place] # (Auto) Eos # (Auto) Baso # (Auto) Absolute Nucleated RBC Nucleated RBC % (auto) Neutrophils % (Manual) Band Neutrophils % Lymphocytes % (Manual) Prolymphocyte % Reactive Lymphs % (Man) Monocytes % (Manual) Eosinophils % (Manual) Basophils % (Manual) Metamyelocytes % (Man) Myelocytes % (Man) Promyelocytes % (Man) Blast Cells % (Manual) Plasma Cell % (Manual) Other Cells % Nucleated RBC % Neutrophils # (Manual) Band Neutrophils # Total Absolute Neuts Lymphocytes # (Manual) Prolymphocyte # Reactive Lymphs # Total Abs Lymphocytes Monocytes # (Manual) Eosinophils # (Manual) Basophils # (Manual) Metamyelocytes # (Man) Myelocytes # (Manual) Promyelocytes # (Man) Blast Cells # (Man) Plasma Cell # (Manual) Other Cells # Nucleated RBCs # (Man) Hypersegmented Neuts Hyposegmented Neuts Hypogranular Neuts Large Granular Lymphs # Lrg Granular Lymphs Hairy Cells Smudge Cells Toxic Granulation Toxic Vacuolation Dohle Bodies Marla Rods Platelet Estimate Hypogranular Platelets Clumped Platelets Giant Platelets Platelet Satelliting RBC Morphology Polychromasia Hypochromasia Poikilocytosis Basophilic Stippling Anisocytosis Microcytosis Macrocytosis Spherocytes Pappenheimer Bodies Sickle Cells Target Cells Tear Drop Cells Ovalocytes Stomatocytes Jones-St. John Bodies Echinocytes Acanthocytes (Spur) Rouleaux RBC Agglutinates Schistocytes RBC Morph Comment Sezary Cell PT (9.0-12.0) Seconds INR (0.9-1.1) APTT (21.0-31.0) Seconds PTT Ratio VBG pH (7.36-7.41) VBG pCO2 (38-50) mmHg VBG pO2 mmHg VBG HCO3 mmol/L VBG O2 Saturation % VBG Base Excess mEq/L Barometric Pressure mm/Hg POC Sodium (135-144) mEq/L Sodium 134 L (136-145) mmol/L POC Potassium (3.3-5.0) mEq/L Potassium 5.5 H (3.5-5.1) mmol/L POC Chloride (101-112) mEq/L Chloride 99 (98-107) mmol/L Carbon Dioxide 27 (21-32) mmol/L POC Total CO2 (24-31) mEq/l Anion Gap 8.0 (3-11) POC Anion Gap (16-25) mmol/L POC BUN (7-18) mg/dl BUN 72 H (7-18) mg/dl Creatinine 2.10 H (0.6-1.4) mg/dl POC Creatinine (0.6-1.3) mg/dl Est Cr Clr Drug Dosing 51.4 ml/min Est GFR ( Amer) 40.4 Est GFR (Non-Af Amer) 34.9 BUN/Creatinine Ratio 34.1 H (10-20) Glucose 432 H* (70-99) mg/dl POC Glucose (70-99) POC Glucose (other) (70-99) mg/dl Osmolality (280-300) mOsm/kg POC Lactic Acid Walt (0.90-1.70) mmol/L Lactate (0.4-2.0) mmol/L Calcium 7.5 L (8.5-10.1) mg/dl POC Ioniz Calcium Obey (1.12-1.32) mmol/l Magnesium (1.8-2.4) mg/dl Total Bilirubin (0.2-1) mg/dl AST (15-37) U/L ALT (12-78) U/L Alkaline Phosphatase (45-117) U/L Ammonia (11-32) umol/L Total Creatine Kinase 109 (39-308) U/L Troponin I (0-0.045) ng/ml Total Protein (6.4-8.2) gm/dl Albumin (3.4-5.0) gm/dl Globulin (2.5-4.0) gm/dl Albumin/Globulin Ratio (0.9-2) Beta-Hydroxybutyric Acd (0.2-2.81) mg/dl TSH 1.300 (0.300-4.500) uIu/ml Ethyl Alcohol mg/dL (0-3) mg/dl Blood Type Antibody Screen 04/30/19 04/30/19 04/30/19 Range/Units 22:20 23:07 23:07 WBC RBC Hgb POC Hgb (14.0-18.0) g/dl Hct POC Hct (42-52) % MCV MCH MCHC RDW Std Deviation RDW Coeff of Taisha Plt Count MPV Immature Gran % (Auto) Neut % (Auto) Lymph % (Auto) [place] % (Auto) Eos % (Auto) Baso % (Auto) Immature Gran # (Auto) Neut # (Auto) Lymph # (Auto) [place] # (Auto) Eos # (Auto) Baso # (Auto) Absolute Nucleated RBC Nucleated RBC % (auto) Neutrophils % (Manual) Band Neutrophils % Lymphocytes % (Manual) Prolymphocyte % Reactive Lymphs % (Man) Monocytes % (Manual) Eosinophils % (Manual) Basophils % (Manual) Metamyelocytes % (Man) Myelocytes % (Man) Promyelocytes % (Man) Blast Cells % (Manual) Plasma Cell % (Manual) Other Cells % Nucleated RBC % Neutrophils # (Manual) Band Neutrophils # Total Absolute Neuts Lymphocytes # (Manual) Prolymphocyte # Reactive Lymphs # Total Abs Lymphocytes Monocytes # (Manual) Eosinophils # (Manual) Basophils # (Manual) Metamyelocytes # (Man) Myelocytes # (Manual) Promyelocytes # (Man) Blast Cells # (Man) Plasma Cell # (Manual) Other Cells # Nucleated RBCs # (Man) Hypersegmented Neuts Hyposegmented Neuts Hypogranular Neuts Large Granular Lymphs # Lrg Granular Lymphs Hairy Cells Smudge Cells Toxic Granulation Toxic Vacuolation Dohle Bodies Marla Rods Platelet Estimate Hypogranular Platelets Clumped Platelets Giant Platelets Platelet Satelliting RBC Morphology Polychromasia Hypochromasia Poikilocytosis Basophilic Stippling Anisocytosis Microcytosis Macrocytosis Spherocytes Pappenheimer Bodies Sickle Cells Target Cells Tear Drop Cells Ovalocytes Stomatocytes Jones-St. John Bodies Echinocytes Acanthocytes (Spur) Rouleaux RBC Agglutinates Schistocytes RBC Morph Comment Sezary Cell PT (9.0-12.0) Seconds INR (0.9-1.1) APTT (21.0-31.0) Seconds PTT Ratio VBG pH 7.37 (7.36-7.41) VBG pCO2 48 (38-50) mmHg VBG pO2 51 mmHg VBG HCO3 27 mmol/L VBG O2 Saturation 83.3 % VBG Base Excess 1.4 mEq/L Barometric Pressure 734.9 mm/Hg POC Sodium (135-144) mEq/L Sodium (136-145) mmol/L POC Potassium (3.3-5.0) mEq/L Potassium (3.5-5.1) mmol/L POC Chloride (101-112) mEq/L Chloride (98-107) mmol/L Carbon Dioxide (21-32) mmol/L POC Total CO2 (24-31) mEq/l Anion Gap (3-11) POC Anion Gap (16-25) mmol/L POC BUN (7-18) mg/dl BUN (7-18) mg/dl Creatinine (0.6-1.4) mg/dl POC Creatinine (0.6-1.3) mg/dl Est Cr Clr Drug Dosing ml/min Est GFR ( Amer) Est GFR (Non-Af Amer) BUN/Creatinine Ratio (10-20) Glucose (70-99) mg/dl POC Glucose (70-99) POC Glucose (other) (70-99) mg/dl Osmolality (280-300) mOsm/kg POC Lactic Acid Walt (0.90-1.70) mmol/L Lactate (0.4-2.0) mmol/L Calcium (8.5-10.1) mg/dl POC Ioniz Calcium Obey (1.12-1.32) mmol/l Magnesium (1.8-2.4) mg/dl Total Bilirubin (0.2-1) mg/dl AST (15-37) U/L ALT (12-78) U/L Alkaline Phosphatase (45-117) U/L Ammonia (11-32) umol/L Total Creatine Kinase (39-308) U/L Troponin I (0-0.045) ng/ml Total Protein (6.4-8.2) gm/dl Albumin (3.4-5.0) gm/dl Globulin (2.5-4.0) gm/dl Albumin/Globulin Ratio (0.9-2) Beta-Hydroxybutyric Acd 1.33 (0.2-2.81) mg/dl TSH (0.300-4.500) uIu/ml Ethyl Alcohol mg/dL (0-3) mg/dl Blood Type O Positive Antibody Screen NEGATIVE 04/30/19 Range/Units 23:07 WBC RBC Hgb POC Hgb (14.0-18.0) g/dl Hct POC Hct (42-52) % MCV MCH MCHC RDW Std Deviation RDW Coeff of Taisha Plt Count MPV Immature Gran % (Auto) Neut % (Auto) Lymph % (Auto) [place] % (Auto) Eos % (Auto) Baso % (Auto) Immature Gran # (Auto) Neut # (Auto) Lymph # (Auto) [place] # (Auto) Eos # (Auto) Baso # (Auto) Absolute Nucleated RBC Nucleated RBC % (auto) Neutrophils % (Manual) Band Neutrophils % Lymphocytes % (Manual) Prolymphocyte % Reactive Lymphs % (Man) Monocytes % (Manual) Eosinophils % (Manual) Basophils % (Manual) Metamyelocytes % (Man) Myelocytes % (Man) Promyelocytes % (Man) Blast Cells % (Manual) Plasma Cell % (Manual) Other Cells % Nucleated RBC % Neutrophils # (Manual) Band Neutrophils # Total Absolute Neuts Lymphocytes # (Manual) Prolymphocyte # Reactive Lymphs # Total Abs Lymphocytes Monocytes # (Manual) Eosinophils # (Manual) Basophils # (Manual) Metamyelocytes # (Man) Myelocytes # (Manual) Promyelocytes # (Man) Blast Cells # (Man) Plasma Cell # (Manual) Other Cells # Nucleated RBCs # (Man) Hypersegmented Neuts Hyposegmented Neuts Hypogranular Neuts Large Granular Lymphs # Lrg Granular Lymphs Hairy Cells Smudge Cells Toxic Granulation Toxic Vacuolation Dohle Bodies Marla Rods Platelet Estimate Hypogranular Platelets Clumped Platelets Giant Platelets Platelet Satelliting RBC Morphology Polychromasia Hypochromasia Poikilocytosis Basophilic Stippling Anisocytosis Microcytosis Macrocytosis Spherocytes Pappenheimer Bodies Sickle Cells Target Cells Tear Drop Cells Ovalocytes Stomatocytes Jones-[place] Bodies Echinocytes Acanthocytes (Spur) Rouleaux RBC Agglutinates Schistocytes RBC Morph Comment Sezary Cell PT (9.0-12.0) Seconds INR (0.9-1.1) APTT (21.0-31.0) Seconds PTT Ratio VBG pH (7.36-7.41) VBG pCO2 (38-50) mmHg VBG pO2 mmHg VBG HCO3 mmol/L VBG O2 Saturation % VBG Base Excess mEq/L Barometric Pressure mm/Hg POC Sodium (135-144) mEq/L Sodium (136-145) mmol/L POC Potassium (3.3-5.0) mEq/L Potassium (3.5-5.1) mmol/L POC Chloride (101-112) mEq/L Chloride (98-107) mmol/L Carbon Dioxide (21-32) mmol/L POC Total CO2 (24-31) mEq/l Anion Gap (3-11) POC Anion Gap (16-25) mmol/L POC BUN (7-18) mg/dl BUN (7-18) mg/dl Creatinine (0.6-1.4) mg/dl POC Creatinine (0.6-1.3) mg/dl Est Cr Clr Drug Dosing ml/min Est GFR ( Amer) Est GFR (Non-Af Amer) BUN/Creatinine Ratio (10-20) Glucose (70-99) mg/dl POC Glucose (70-99) POC Glucose (other) (70-99) mg/dl Osmolality (280-300) mOsm/kg POC Lactic Acid Walt (0.90-1.70) mmol/L Lactate (0.4-2.0) mmol/L Calcium (8.5-10.1) mg/dl POC Ioniz Calcium Obey (1.12-1.32) mmol/l Magnesium (1.8-2.4) mg/dl Total Bilirubin (0.2-1) mg/dl AST (15-37) U/L ALT (12-78) U/L Alkaline Phosphatase (45-117) U/L Ammonia (11-32) umol/L Total Creatine Kinase (39-308) U/L Troponin I (0-0.045) ng/ml Total Protein (6.4-8.2) gm/dl Albumin (3.4-5.0) gm/dl Globulin (2.5-4.0) gm/dl Albumin/Globulin Ratio (0.9-2) Beta-Hydroxybutyric Acd (0.2-2.81) mg/dl TSH (0.300-4.500) uIu/ml Ethyl Alcohol mg/dL (0-3) mg/dl Blood Type Antibody Screen Imaging Data Radiologist's Impression: Radiology results as stated below per my review and the radiologist's interpretation: XR chest 1V portable CLINICAL HISTORY: Chest pain. COMPARISON STUDY: Chest radiograph June 16, 2017. FINDINGS: Lung volumes are normal. Lungs are clear. There is no pneumothorax or pleural effusion. Cardiomediastinal silhouette is stable. Mediastinal contours are normal. There is no evidence for pulmonary edema. IMPRESSION: No acute cardiopulmonary findings. Electronically signed by: Valeriy Arce M.D. 04/30/2019 7:[address] OF THE HEAD WITHOUT CONTRAST CLINICAL HISTORY: Left-sided weakness. Stroke evaluation. COMPARISON STUDY: No previous studies for comparison. CT DOSE: 884.08 mGy.cm TECHNIQUE: Helical axial images of the head were obtained without IV contrast. Automated exposure control was utilized for the study. A dose lowering technique was utilized adhering to the principles of ALARA. FINDINGS: No acute intracranial hemorrhage, midline shift or mass effect is present. Ventricular system is normal. The basilar cisterns are patent. There are no extra-axial collections. A 1 cm hypodensity within the right caudate nucleus is noted. There is hypodensity within the right occipital lobe as well. The basilar cisterns are patent. There are no extra-axial collections. There are no findings to suggest acute dural sinus thrombosis or acute territorial infarct. Exam is mildly compromised by motion artifact. There are no significant calvarial abnormalities. A few white matter hypodensity suggests small vessel disease. IMPRESSION: 1. No acute intracranial hemorrhage or mass effect. 2. 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 3. 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 An underlying mass is considered less likely however a follow-up nonemergent MRI of the brain with and without contrast is recommended. Electronically signed by: Valeriy Arce M.D. 04/30/2019 9:04 PM ECG Data Attestation: I personally reviewed and interpreted this ECG as follows: Indication: altered mental status Rate (beats per minute): 95 Rhythm: normal sinus Findings: + RBBB; no PVC and no ST elevation Comparison ECG Date: from (06/16/2017) Change: no significant change Blood Pressure Blood Pressure Findings: Low blood pressure Blood Pressure Disposition: further management by hospitalist TERRY Haney Patient is a 53-year-old gentleman history of peripheral vascular disease, DM, sepsis, cardiac disease presenting today with complaint of some difficulty with his left arm in particularly with fine movements as well as questionably some slurred speech during the day today. Noted when he awoke at 7 AM this morning. Last seen well was 1030p last night & obviously outside the TPA window. No facial droop or significant slurred speech noted at this time on my exam. Family reports may be some aphasia earlier. Broad work-up was completed. Patient also endorses 5 minutes of chest pain earlier today. He has a cardiac history EKG & troponin completed. CT of the head was ordered. There is some discrepancy between blood pressure in the right arm in the wonder if this is related to vascular disease. Not having active chest pain now and very transient episode earlier. Did consider ordering vessel imaging of the chest the aorta to the carotids and through the head however given his renal function feel the risk for kidney damage outweighs the benefits here as I do not believe he is actively having a large vessel occlusion and lower suspicion for dissec tion. Concern this could possibly represent a subtle stroke versus sequelae of metabolic or infectious abnormalities especially as a very poorly perfused and ulcerated right lower extremity. EKG without significant changes from previous. [id number] BMP showed worsening kidney function, slight lactate elevation, and hyperkalemia with hypocalcemia. No significant hyperkalemic changes in the EKG. Formal labs were completed. Evidence confirms hyperkalemia with worsened kidney function. Given albuterol, calcium, insulin here. Again not having significant cardiac function change at this time but very concerned especially with his worsened renal function the potassium could worsen or he could have a significant cardiac dysrhythmia. Hypocalcemia noted and given calcium gluconate for both purposes. Slight anemia noted without significant leukocytosis. Medical follow-up was sent and negative here. CT the head here shows an age- indeterminate infarct as well as a possible infarct versus mass. Don't see clear evidence of sepsis at this time. Patient symptomatology could be related to possible metabolic causes from his renal dysfunction hyperglycemia versus a stroke. Had a jovanna discussion with the patient and family that with these abnormalities including the hyperkalemia & very strongly suggest admission for further evaluation and care. Patient was in agreement for this. The [facility] hospitalist was contacted. Impression & Plan Acute hyperkalemia, Renal dysfunction, Ataxia of left upper extremity, Acute hyperglycemia Critical Care Time Critical Care Time: Yes Total Critical Care Time: 32 I have personally spent 32 minutes of critical care time in the direct management of this patient. This includes bedside care, interpretation of diagnostic studies, and testing, discussion with consultants, patient, and family members, and other required patient management activities. This 32 minutes is in excess of all separately billable procedures. Discharge Plan Visit Data Chief Complaint: Stroke/CVA Symptoms Stated Complaint: CAN'T USE HANDS,SLURRING WORDS,WEAKNESS ED Provider: Ish Katz Discharge Problem: Acute hyperkalemia, Renal dysfunction, Ataxia of left upper extremity, Acute hyperglycemia Forms Stand Alone Forms: My [facility] [employer] Prescriptions Prescriptions: No Action gabapentin [Neurontin] 800 mg Tablet 800 mg PO BID Qty: 0 RF: 0 oxycodone-acetaminophen [Percocet] 10-325 mg Tablet 1 tab PO TID PRN (Reason: Pain) Qty: 0 RF: 0 atorvastatin [Lipitor] 80 mg Tablet 80 mg PO PM Qty: 0 RF: 0 amitriptyline 25 mg Tablet 25 mg PO HS Qty: 0 RF: 0 furosemide [Lasix] 80 mg Tablet 80 mg PO PM Qty: 0 RF: 0 metformin [Glucophage] 1,000 mg Tablet 1,000 mg PO BID Qty: 0 RF: 0 nitroglycerin [Nitrostat] 0.4 mg Tablet, Sublingual 0.4 mg sublingual UD PRN (Reason: Chest Pain) Qty: 0 RF: 0 aspirin 81 mg Tablet,Delayed Release (Dr/Ec) 81 mg PO BID Qty: 0 RF: 0 carvedilol [Coreg] 3.125 mg Tablet 3.125 mg PO BID Qty: 0 RF: 0 docusate sodium [Colace] 100 mg Capsule 100 mg PO BID Qty: 0 RF: 0 acetaminophen [Tylenol Extra Strength] 500 mg Tablet 1,000 mg PO QID PRN (Reason: Pain) RF: 0 ibuprofen 200 mg Tablet 400 mg PO Q6H PRN (Reason: Pain) RF: 0 duloxetine [Cymbalta] 60 mg Capsule,Delayed Release(Dr/Ec) 60 mg PO QAM RF: 0 insulin glargine 100 unit/mL (3 mL) Insulin Pen 32 unit SUBCUT AMPM RF: 0 The scribe's documentation has been prepared under my direction and personally reviewed by me in its entirety. I confirm that the note above accurately reflects all work, treatment, procedures, and medical decision making performed by me.
[2019-04-30] MEDS ORDERED: CLOPIDOGREL BISULFATE 75 MG TAB PO ONE (22:42)
--- NOTE | 2019-04-30 22:47 | History & Physical Report ---
Date of Service April 30, 2019 Assessment & Plan (1) Hyperglycemic crisis in diabetes mellitus: DM2, insulin requiring Suboptimal control as of recent outpatient hemoglobin A1c of 8 last December 2018 Patient admits to dietary indiscretion. ARF on possible CRI (recent outpatient creatinine of 1.8 from last month possibly patient's new baseline)?, hyperkalemia Multifactorial : Hyperglycemia Dietary indiscretion NSAID intake Transient left upper extremity weakness, word finding difficulty Old CVA on CAT scan possible TIA Possible aspirin failure chronic systolic heart failure 2 to ischemic cardiomyopathy (EF 40 to 44%, TTE 2017), patient on the dry side pulmonary hypertension as per records Hypertension, BP on the lower side Hyperlipidemia on statin Rx RLE wounds secondary to hx PVD, hx AKA L No gross drainage Patient did not show up for scheduled R AKA procedure at [facility]. Second opinion contemplated by patient outpatient to be arranged by [facility] vascular surgeon as per patient. chronic anemia secondary to CKD, hemoglobin at baseline ongoing tobacco abuse Medical telemetry IV insulin overlapping with patient's basal insulin, update hemoglobin A1c May benefit from pharmacy glycemic control consult Diabetic education pending hemoglobin A1c results. Baseline UA, monitor creatinine response to IV fluids, hold home diuretic for now Nephrology consult RE ARF, possible CKD Patient counseled about adverse effects of NSAIDs on cardiovascular and kidney function. Neurochecks, add Plavix to aspirin for now for stroke prevention until new stroke ruled out on MRI/MRA brain Neurology consult RE TIA Additional stroke work-up pending MRI/MRA results Appropriate to home antihypertensives for now given hypotension. Nicotine patch PRN, patient strongly counseled to stop smoking. DVT prophylaxis. Heparin subcu Full code History of Present Illness Chief Complaint: Strokelike symptoms Primary Care Provider: Jac Cordoba MD History obtained from patient and records. Medical history significant for chronic systolic heart failure secondary to ischemic cardiomyopathy as per records (EF 40 to 44%, TTE 2017), pulmonary h ypertension as per records, hx PVD, CRI (baseline creatinine 1.8 as 03/2019), chronic anemia, baseline hemoglobin of 12, ongoing tobacco abuse. Recent admission June 2017 at [facility] for left foot gangrene status post emergent AKA. Earlier today, patient noted transient left upper extremity weakness. No headache, no neck pain, no chest pain, no S OB. Family noted transient word finding difficulty. Compliant with home Rx. Blood sugars at home 170s. Denies recent hypoglycemic episodes. Patient was at a gathering today where he consumed cake. Taking nightly ibuprofen for aches. Patient also admits to potato consumption. At the ER, SBP noted to be 90s. IV insulin given for blood sugars in the 500s. Medical History as above Surgical History : Left AKA, biceps tendon repair Family History : Diabetes, vascular disease Personal/Social history : One pack daily, no EtOH intake, disabled Allergies Allergy/AdvReac Type Severity Reaction Status Date / Time No Known Allergies Allergy Unverified 04/30/19 19:36 Home Medications Home Medications Medication Instructions Recorded Confirmed Type gabapentin [Neurontin] 800 mg PO BID #0 tab 10/03/14 04/30/19 History oxycodone-acetaminophen [Percocet] 1 tab PO TID PRN #0 tab 02/24/17 04/30/19 History amitriptyline 25 mg PO HS #0 tab 06/16/17 04/30/19 History aspirin 81 mg PO BID #0 06/16/17 04/30/19 History atorvastatin [Lipitor] 80 mg PO PM #0 tab 06/16/17 04/30/19 History carvedilol [Coreg] 3.125 mg PO BID #0 tab 06/16/17 04/30/19 History docusate sodium [Colace] 100 mg PO BID #0 cap 06/16/17 04/30/19 History furosemide [Lasix] 80 mg PO PM #0 tab 06/16/17 04/30/19 History metformin [Glucophage] 1,000 mg PO BID #0 tab 06/16/17 04/30/19 History nitroglycerin [Nitrostat] 0.4 mg SUBLINGUAL UD PRN #0 btl 06/16/17 04/30/19 History acetaminophen [Tylenol Extra 1,000 mg PO QID PRN 04/30/19 04/30/19 History Strength] duloxetine [Cymbalta] 60 mg PO QAM 04/30/19 04/30/19 History ibuprofen 400 mg PO Q6H PRN 04/30/19 04/30/19 History insulin glargine 32 unit SUBCUT AMPM 04/30/19 04/30/19 History Past Med/Surg History Medical History Diabetes type 2, controlled Family History Other No pertinent family history in first degree relatives Social History Preferred Language: Belarusian Communication Ability: Effective Stove Tender Required: No Beliefs That Will Affect Care: None Current Living Situation: Alone Feels Safe at Home: Yes Safety Concerns: Feels Safe At This Time Smoking Status: Current some day smoker Tobacco Type: cigarettes ; Cigarettes Per Day: 20 ; Hx Alcohol Use: No Hx Substance Use: No Review of Systems Review of Systems: As per HPI, all 10 systems reviewed, all other ROS negative Physical Exam Physical Exam: GENERAL: Comfortable, no respiratory distress, chronically ill, obese SKIN: Pallor , warm HEENT: Partial alopecia, pale palpebral conjunctivae, no ptosis, dry buccal mucosa NECK : Supple, short neck, no tenderness CHEST : Decreased breath sounds , no tenderness HEART : RRR, systolic murmur ABDOMEN: Some distention, nontender EXTREMITIES : Left AKA stump, RLE swelling chronic, dressing over right foot wounds NEUROLOGIC : Coherent, no facial asymmetry, no pronator drift, no other gross focality Results & Data Vital Signs (Past 12 Hours) Vital Signs Temp Pulse Pulse Resp BP BP Pulse Ox 04/30/19 21:02 93 H 17 95 04/30/19 20:50 95 H 20 94/51 L 94 04/30/19 18:48 97 H 110/76 95 04/30/19 18:10 36.6 C 100 H 20 82/51 L 100 Laboratory Results Laboratory Results WBC 9.88 K/uL (4.8-10.8) 04/30/19 19:50 RBC 3.95 M/uL (4.7-6.1) L 04/30/19 19:50 Hgb 11.7 g/dL (14.0-18.0) L 04/30/19 19:50 POC Hgb 12.6 g/dl (14.0-18.0) L 04/30/19 19:04 Hct 35.9 % (42-52) L 04/30/19 19:50 POC Hct 37 % (42-52) L 04/30/19 19:04 MCV 90.9 fL (80-100) 04/30/19 19:50 MCH 29.6 pg (25-34) 04/30/19 19:50 MCHC 32.6 g/dL (32-36) 04/30/19 19:50 RDW Std Deviation 46.5 fL (36.4-46.3) H 04/30/19 19:50 RDW Coeff of Taisha 14.0 % (11.5-14.5) 04/30/19 19:50 Plt Count 243 K/uL (130-400) 04/30/19 19:50 MPV 11.4 fL (7.4-10.4) H 04/30/19 19:50 Immature Gran % (Auto) 0.3 % 04/30/19 19:50 Neut % (Auto) 60.4 % 04/30/19 19:50 Lymph % (Auto) 28.7 % 04/30/19 19:50 Anderson % (Auto) 5.1 % 04/30/19 19:50 Eos % (Auto) 5.1 % 04/30/19 19:50 Baso % (Auto) 0.4 % 04/30/19 19:50 Immature Gran # (Auto) 0.03 K/uL (0.00-0.02) H 04/30/19 19:50 Neut # (Auto) 5.97 K/uL (1.4-6.5) 04/30/19 19:50 Lymph # (Auto) 2.84 K/uL (1.2-3.4) 04/30/19 19:50 Anderson # (Auto) 0.50 K/uL (0.11-0.59) 04/30/19 19:50 Eos # (Auto) 0.50 K/uL (0-0.5) 04/30/19 19:50 Baso # (Auto) 0.04 K/uL (0-0.2) 04/30/19 19:50 Absolute Nucleated RBC Cancelled 04/30/19 18:42 Nucleated RBC % (auto) Cancelled 04/30/19 18:42 Neutrophils % (Manual) Cancelled 04/30/19 18:42 Band Neutrophils % Cancelled 04/30/19 18:42 Lymphocytes % (Manual) Cancelled 04/30/19 18:42 Prolymphocyte % Cancelled 04/30/19 18:42 Reactive Lymphs % (Man) Cancelled 04/30/19 18:42 Monocytes % (Manual) Cancelled 04/30/19 18:42 Eosinophils % (Manual) Cancelled 04/30/19 18:42 Basophils % (Manual) Cancelled 04/30/19 18:42 Metamyelocytes % (Man) Cancelled 04/30/19 18:42 Myelocytes % (Man) Cancelled 04/30/19 18:42 Promyelocytes % (Man) Cancelled 04/30/19 18:42 Blast Cells % (Manual) Cancelled 04/30/19 18:42 Plasma Cell % (Manual) Cancelled 04/30/19 18:42 Other Cells % Cancelled 04/30/19 18:42 Nucleated RBC % Cancelled 04/30/19 18:42 Neutrophils # (Manual) Cancelled 04/30/19 18:42 Band Neutrophils # Cancelled 04/30/19 18:42 Total Absolute Neuts Cancelled 04/30/19 18:42 Lymphocytes # (Manual) Cancelled 04/30/19 18:42 Prolymphocyte # Cancelled 04/30/19 18:42 Reactive Lymphs # Cancelled 04/30/19 18:42 Total Abs Lymphocytes Cancelled 04/30/19 18:42 Monocytes # (Manual) Cancelled 04/30/19 18:42 Eosinophils # (Manual) Cancelled 04/30/19 18:42 Basophils # (Manual) Cancelled 04/30/19 18:42 Metamyelocytes # (Man) Cancelled 04/30/19 18:42 Myelocytes # (Manual) Cancelled 04/30/19 18:42 Promyelocytes # (Man) Cancelled 04/30/19 18:42 Blast Cells # (Man) Cancelled 04/30/19 18:42 Plasma Cell # (Manual) Cancelled 04/30/19 18:42 Other Cells # Cancelled 04/30/19 18:42 Nucleated RBCs # (Man) Cancelled 04/30/19 18:42 Hypersegmented Neuts Cancelled 04/30/19 18:42 Hyposegmented Neuts Cancelled 04/30/19 18:42 Hypogranular Neuts Cancelled 04/30/19 18:42 Large Granular Lymphs Cancelled 04/30/19 18:42 # Lrg Granular Lymphs Cancelled 04/30/19 18:42 Hairy Cells Cancelled 04/30/19 18:42 Smudge Cells Cancelled 04/30/19 18:42 Toxic Granulation Cancelled 04/30/19 18:42 Toxic Vacuolation Cancelled 04/30/19 18:42 Dohle Bodies Cancelled 04/30/19 18:42 Marla Rods Cancelled 04/30/19 18:42 Platelet Estimate Cancelled 04/30/19 18:42 Hypogranular Platelets Cancelled 04/30/19 18:42 Clumped Platelets Cancelled 04/30/19 18:42 Giant Platelets Cancelled 04/30/19 18:42 Platelet Satelliting Cancelled 04/30/19 18:42 RBC Morphology Cancelled 04/30/19 18:42 Polychromasia Cancelled 04/30/19 18:42 Hypochromasia Cancelled 04/30/19 18:42 Poikilocytosis Cancelled 04/30/19 18:42 Basophilic Stippling Cancelled 04/30/19 18:42 Anisocytosis Cancelled 04/30/19 18:42 Microcytosis Cancelled 04/30/19 18:42 Macrocytosis Cancelled 04/30/19 18:42 Spherocytes Cancelled 04/30/19 18:42 Pappenheimer Bodies Cancelled 04/30/19 18:42 Sickle Cells Cancelled 04/30/19 18:42 Target Cells Cancelled 04/30/19 18:42 Tear Drop Cells Cancelled 04/30/19 18:42 Ovalocytes Cancelled 04/30/19 18:42 Stomatocytes Cancelled 04/30/19 18:42 [place] Bodies Cancelled 04/30/19 18:42 Echinocytes Cancelled 04/30/19 18:42 Acanthocytes (Spur) Cancelled 04/30/19 18:42 Rouleaux Cancelled 04/30/19 18:42 RBC Agglutinates Cancelled 04/30/19 18:42 Schistocytes Cancelled 04/30/19 18:42 RBC Morph Comment Cancelled 04/30/19 18:42 Sezary Cell Cancelled 04/30/19 18:42 PT 9.3 Seconds (9.0-12.0) 04/30/19 18:42 INR 0.9 (0.9-1.1) 04/30/19 18:42 APTT 24.2 Seconds (21.0-31.0) 04/30/19 18:42 PTT Ratio 0.9 04/30/19 18:42 POC Sodium 131 mEq/L (135-144) L 04/30/19 19:04 Sodium 134 mmol/L (136-145) L 04/30/19 18:42 POC Potassium 6.1 mEq/L (3.3-5.0) H* 04/30/19 19:04 Potassium 6.0 mmol/L (3.5-5.1) H 04/30/19 18:42 POC Chloride 97 mEq/L (101-112) L 04/30/19 19:04 Chloride 96 mmol/L (98-107) L 04/30/19 18:42 Carbon Dioxide 27 mmol/L (21-32) 04/30/19 18:42 POC Total CO2 29 mEq/l (24-31) 04/30/19 19:04 Anion Gap 11.0 (3-11) 04/30/19 18:42 POC Anion Gap 12.0 mmol/L (16-25) L 04/30/19 19:04 POC BUN 65 mg/dl (7-18) H 04/30/19 19:04 BUN 71 mg/dl (7-18) H 04/30/19 18:42 Creatinine 2.37 mg/dl (0.6-1.4) H 04/30/19 18:42 POC Creatinine 2.3 mg/dl (0.6-1.3) H 04/30/19 19:04 Est Cr Clr Drug Dosing 45.6 ml/min 04/30/19 18:42 Est GFR ( Amer) 34.9 04/30/19 18:42 Est GFR (Non-Af Amer) 30.1 04/30/19 18:42 BUN/Creatinine Ratio 29.9 (10-20) H 04/30/19 18:42 Glucose 515 mg/dl (70-99) H* 04/30/19 18:42 POC Glucose 415 (70-99) H* 04/30/19 21:17 POC Glucose (other) 510 mg/dl (70-99) H* 04/30/19 19:04 POC Lactic Acid Walt 2.60 mmol/L (0.90-1.70) H 04/30/19 19:00 Calcium 8.1 mg/dl (8.5-10.1) L 04/30/19 18:42 POC Ioniz Calcium Obey 1.02 mmol/l (1.12-1.32) L 04/30/19 19:04 Magnesium 2.3 mg/dl (1.8-2.4) 04/30/19 18:42 Total Bilirubin 0.5 mg/dl (0.2-1) 04/30/19 18:42 AST 8 U/L (15-37) L 04/30/19 18:42 ALT 16 U/L (12-78) 04/30/19 18:42 Alkaline Phosphatase 158 U/L (45-117) H 04/30/19 18:42 Troponin I 0.028 ng/ml (0-0.045) 04/30/19 18:42 Total Protein 6.7 gm/dl (6.4-8.2) 04/30/19 18:42 Albumin 3.0 gm/dl (3.4-5.0) L 04/30/19 18:42 Globulin 3.7 gm/dl (2.5-4.0) 04/30/19 18:42 Albumin/Globulin Ratio 0.8 (0.9-2) L 04/30/19 18:42 Beta-Hydroxybutyric Acd mg/dl (0.2-2.81) 04/30/19 18:42 Ethyl Alcohol mg/dL < 3.0 mg/dl (0-3) 04/30/19 18:[address] head: 1. No acute intracranial hemorrhage or mass effect. 2. 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 3. 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 An underlying mass is considered less likely however a follow-up nonemergent MRI of the brain with and without contrast is recommended. Chest x-ray : No acute cardiopulmonary abnormality EKG as per my interpretation :Rate 95, normal axis, right bundle branch block, septal infarct
[2019-04-30 23:18] LABS: Base Excess VBG 1.4 mEq/L; Oxygen Saturation VBG 83.3 %; pH VBG 7.37 (7.36-7.41)
[2019-04-30 23:19] LABS: Calcium 7.5 mg/dl (8.5-10.1); Creatinine Clr Calc Pharmacy 51.4 ml/min; Est GFR (African American) 40.4; Est GFR (Non-African American) 34.9; Thyroid Stimulating Hormone 1.3 uIu/ml (0.300-4.500)
[2019-04-30] MEDS ORDERED: SODIUM CHLORIDE 0.9% 1000ML 1,000 ML IV SCH (23:27)
[2019-04-30] MEDS ORDERED: INSULIN GLARGINE SOLOSTAR 100 UNITS/ML 3 ML PEN SC STA (23:31)
[2019-04-30 23:41] LABS: BUN Creatinine Ratio 34.1 (10-20); Potassium 5.5 mmol/L (3.5-5.1)
[2019-04-30] MEDS ORDERED: INSULIN PROTOCOL GOAL RANGE ONE (23:43)
[2019-05-01] MEDS ORDERED: NITROGLYCERIN SL 0.4 MG/TAB TAB SL PRN (01:36)
[2019-05-01] MEDS ORDERED: ACETAMINOPHEN 325 MG TAB PO PRN (01:36)
[2019-05-01] MEDS ORDERED: OXYCODONE/ACETAMINOPHEN 10-325 TAB PO PRN (01:36)
[2019-05-01] MEDS ORDERED: INSULIN REGULAR 250 UNITS in SODIUM CHLORIDE 0.9% 247.5 ML IV SCH (02:00)
[2019-05-01] MEDS ORDERED: INSULIN HUMAN REGULAR IV BOLUS 3 UNITS in SYRINGE 0 ML IV ONE (02:00)
[2019-05-01] MEDS ORDERED: GLUCOSE 40% GEL 15 GM TUBE PO PRN (02:15)
[2019-05-01] MEDS ORDERED: GLUCOSE 10 TABS/TUBE PO PRN (02:15)
[2019-05-01] MEDS ORDERED: CARBOHYDRATES FOR HYPOGLYCEMIA PO PRN (02:15)
[2019-05-01] MEDS ORDERED: DEXTROSE 50% 50 ML SYRINGE IV PRN (02:15)
[2019-05-01] MEDS ORDERED: GLUCAGON FOR INJ 1 MG VIAL IM PRN (02:15)
[2019-05-01 04:07] LABS: Basophils # (auto) 0.03 K/uL (0-0.2); Basophils % (auto) 0.3 %; Eosinophils # (auto) 0.61 K/uL (0-0.5); Eosinophils % (auto) 6.3 %; Hematocrit (blood only) 36.7 % (42-52); Immature Granulocytes # (auto) 0.04 K/uL (0.00-0.02); Immature Granulocytes % (auto) 0.4 %; Lymphocytes # (auto) 2.87 K/uL (1.2-3.4); Lymphocytes % (auto) 29.5 %; Mean Corpuscular Hemoglobin 29.7 pg (25-34); Mean Corpuscular Hgb Conc 32.7 g/dL (32-36); Mean Corpuscular Volume 90.8 fL (80-100); Mean Platelet Volume 10.9 fL (7.4-10.4); Monocytes # (auto) 0.44 K/uL (0.11-0.59); Monocytes % (auto) 4.5 %; Neutrophils # (auto) 5.73 K/uL (1.4-6.5); Platelet Count 246 K/uL (130-400); RDW Coefficient of Variation 13.9 % (11.5-14.5); RDW Standard Deviation 45.9 fL (36.4-46.3); Red Blood Count 4.04 M/uL (4.7-6.1); White Blood Count 9.72 K/uL (4.8-10.8)
[2019-05-01 04:35] LABS: BUN Creatinine Ratio 36.2 (10-20); Calcium 7.5 mg/dl (8.5-10.1)
[2019-05-01 05:00] LABS: Potassium 4.8 mmol/L (3.5-5.1)
[2019-05-01 05:01] LABS: Creatinine Clr Calc Pharmacy 63.4 ml/min; Est GFR (African American) 52.2
[2019-05-01 05:13] LABS: Appearance Urine Clear (Clear); Bilirubin Urine Negative (Negative); Blood Urine Negative (Negative); Color Urine Yellow; Glucose Urine UA 3+ (Negative); Ketones Urine Negative (Negative); Leukocyte Esterase Urine Negative (Negative); Nitrite Urine Negative (Negative); Protein Urine Negative (Negative); Specific Gravity Urine 1.016 (1.000-1.030); Urobilinogen Urine Negative (Negative)
[2019-05-01] MEDS ORDERED: SODIUM CHLORIDE 0.9% 1000ML 1,000 ML IV ONE (05:24)
[2019-05-01 05:35] LABS: Amphetamines+Metham, Urine Neg (Neg); Barbiturates, Urine Neg (Neg); Benzodiazepine, Urine Neg (Neg); Cocaine, Urine Neg (Neg); MDMA (Ecstacy), Urine Neg (Neg); Methadone, Urine Neg (Neg); Opiate, Urine Neg (Neg); Phencyclidine, Urine Neg (Neg)
[2019-05-01] MEDS: carvediloL 3.125 MG TAB PO SCH ×2 (05:56→21:24)
[2019-05-01] MEDS: HEPARIN SOD 5,000 UNIT/0.5 ML VIAL SQ SCH ×3 (05:57→21:24)
[2019-05-01 07:15] LABS: Estimated Average Glucose 255 mg/dl; Hemoglobin A1C 10.5 % (4.5-5.6)
[2019-05-01] MEDS ORDERED: PHARMACY GLYCEMIC MGMT CONSULT PRN (07:48)
[2019-05-01] MEDS: DOCUSATE SODIUM 100 MG CAP PO SCH ×2 (08:43→21:23)
[2019-05-01] MEDS: GABAPENTIN 100 MG CAP PO SCH ×2 (08:44→21:24)
[2019-05-01] MEDS: DULOXETINE HCL 60 MG CAP PO SCH (08:44)
[2019-05-01] MEDS: CLOPIDOGREL BISULFATE 75 MG TAB PO SCH (08:44)
[2019-05-01] MEDS: ASPIRIN 81 MG ECTAB PO SCH (08:44)
--- NOTE | 2019-05-01 08:54 | Hospitalist Progress Note ---
Date of Service May 01, 2019 Assessment & Plan (1) Hyperglycemic crisis in diabetes mellitus: DM2, insulin requiring Suboptimal control as of recent outpatient hemoglobin A1c of 8 last December 2018 Patient admits to dietary indiscretion. ARF on possible CRI (recent outpatient creatinine of 1.8 from last month possibly patient's new baseline)?, hyperkalemia Multifactorial : Hyperglycemia Dietary indiscretion NSAID intake Transient left upper extremity weakness, word finding difficulty Old CVA on CAT scan possible TIA Possible aspirin failure chronic systolic heart failure 2 to ischemic cardiomyopathy (EF 40 to 44%, TTE 2017), patient on the dry side pulmonary hypertension as per records Hypertension, BP on the lower side Hyperlipidemia on statin Rx RLE wounds secondary to hx PVD, hx AKA L No gross drainage Patient did not show up for scheduled R AKA procedure at [facility]. Second opinion contemplated by patient outpatient to be arranged by [facility] vascular surgeon as per patient. chronic anemia secondary to CKD, hemoglobin at baseline ongoing tobacco abuse Medical telemetry IV insulin overlapping with patient's basal insulin, update hemoglobin A1c May benefit from pharmacy glycemic control consult Diabetic education pending hemoglobin A1c results. Baseline UA, monitor creatinine response to IV fluids, hold home diuretic for now Nephrology consult RE ARF, possible CKD Patient counseled about adverse effects of NSAIDs on cardiovascular and kidney function. Neurochecks, add Plavix to aspirin for now for stroke prevention until new stroke ruled out on MRI/MRA brain Neurology consult RE TIA Additional stroke work-up pending MRI/MRA results Appropriate to home antihypertensives for now given hypotension. Nicotine patch PRN, patient strongly counseled to stop smoking. DVT prophylaxis. Heparin subcu Full code (2) Left arm weakness: Rule out TIA versus acute CVA Risk factors: Coronary artery disease, diabetes, hypertension CT head: No acute CVA, age indeterminate 1 cm infarct in the right caudate nucleus, old right cerebellar infarct Left arm weakness resolved Brain MRI: Pending Plavix added to usual aspirin Monitor blood pressure Neurologist consulted Hyperglycemia, diabetes type 2 Usually on metformin insulin glargine Admitted with blood sugar readings in the 500s A1c 10.5 Insulin drip started, glycemic control consulted Acute renal failure on CKD stage III Likely prerenal etiology Baseline creatinine 1.8 as of December 2018 Creatinine 2.3 on admission IV fluids given Improved to 1.7 Clinical Specialist Vascular service consulted Old CVA Cerebellar infarcts noted on CAT scan, will diagnosis as per patient Plavix added to aspirin History of features of heart failure, systolic type EF 40% Euvolemic Monitor while on IV fluids Lasix held for acute renal failure Continue carvedilol Pulmonary hypertension Respiratory status stable Chronic right lower extremity wounds No changes as per patient No signs of active infection at this time Follows with [facility], planning for referral for second opinion as per patient, scheduled for for follow-up this months Strongly recommended to patient wound care service referral, despite extensive explanation, the patient has declined this referral, he understands and accepting the risk of infection, sepsis, worsening of the wound History of peripheral vascular disease Continue aspirin and atorvastatin DVT prophylaxis Heparin subcutaneous Disposition PT OT evaluations Lives with family at home Subjective Follow-up for episode of left arm weakness, hyperglycemia, other problems as noted below Seen resting in bed, comfortable, awake and alert oriented x3 no distress States he feels better compared to yesterday Left arm weakness has resolved, no recurrence, no other focal neurologic symptoms since admission Denies chest pain, shortness of breath, palpitations, dizziness No changes with right lower leg wounds- no recent pain, redness, tenderness, drainage, no fevers or chills Nights other symptoms Review of Systems Review of Systems: All systems reviewed & are unremarkable except as noted in HPI & below Physical Exam Physical Exam: General- oriented x 3, not in distress, speaks in sentences with no effort or accessory muscle use Head- atraumatic Eyes- PERRL, EOMI, anicteric ENT- oropharynx clear Neck- supple, no JVD, no adenopathy, no thyromegaly; carotids +2/2, no bruits appreciated Lungs- clear to auscultation bilaterally, no rales/wheezes Heart- normal rate, regular rhythm; no murmur, no gallop, no rub appreciated Abdomen- normal bowel sounds, nondistended, soft, nontender, no masses or hepatosplenomegaly Extremities-right lower leg: Positive really dry skin, positive at least 4 areas scabbing wounds on the anterior medial aspect-no drainage/bleeding, With surrounding mild erythema, no warmth, mild tenderness Left lower extremity: Positive for status post amputation Neuro- alert, oriented x 3; CN 2-12 grossly intact; motor 5/5 bilaterally;sensation 100% on all extremities; no other gross focal neurologic deficits Skin- warm & dry Results & Data Vital Signs (Past 12 Hours) Vital Signs Temp Pulse Pulse Pulse Resp BP BP 05/01/19 07:52 36.5 C 81 17 115/68 05/01/19 05:55 37.1 C 86 16 116/75 05/01/19 04:00 36.7 C 82 18 165/84 H 05/01/19 01:37 36.7 C 91 H 16 112/70 05/01/19 01:33 92 H 05/01/19 01:00 93 H 19 05/01/19 00:32 91 H 24 05/01/19 00:31 91 H 17 145/76 H 05/01/19 00:29 91 H 21 122/89 05/01/19 00:00 93 H 19 04/30/19 23:50 95 H 18 100/78 04/30/19 23:31 92 H 17 100/78 04/30/19 23:30 87 18 04/30/19 23:00 94 H 17 04/30/19 22:30 93 H 19 93/62 L 04/30/19 22:14 92 H 21 84/63 L 04/30/19 22:00 93 H 17 04/30/19 21:31 94 H 14 113/62 04/30/19 21:30 96 H 16 04/30/19 21:02 93 H 17 04/30/19 21:00 93 H 18 Pulse Ox 05/01/19 07:52 96 05/01/19 05:55 93 05/01/19 04:00 92 05/01/19 01:37 92 05/01/19 01:33 05/01/19 01:00 05/01/19 00:32 05/01/19 00:31 05/01/19 00:29 05/01/19 00:00 04/30/19 23:50 04/30/19 23:31 04/30/19 23:30 04/30/19 23:00 04/30/19 22:30 93 04/30/19 22:14 94 04/30/19 22:00 91 04/30/19 21:31 92 04/30/19 21:30 94 04/30/19 21:02 95 04/30/19 21:00 100 Laboratory Results Laboratory Results - last 24 hr 04/30/19 04/30/19 04/30/19 18:42 18:42 18:42 WBC Cancelled RBC Cancelled Hgb Cancelled POC Hgb Hct Cancelled POC Hct MCV Cancelled MCH Cancelled MCHC Cancelled RDW Std Deviation Cancelled RDW Coeff of Taisha Cancelled Plt Count Cancelled MPV Cancelled Immature Gran % (Auto) Cancelled Neut % (Auto) Cancelled Lymph % (Auto) Cancelled [place] % (Auto) Cancelled Eos % (Auto) Cancelled Baso % (Auto) Cancelled Immature Gran # (Auto) Cancelled Neut # (Auto) Cancelled Lymph # (Auto) Cancelled [place] # (Auto) Cancelled Eos # (Auto) Cancelled Baso # (Auto) Cancelled Absolute Nucleated RBC Cancelled Nucleated RBC % (auto) Cancelled Neutrophils % (Manual) Cancelled Band Neutrophils % Cancelled Lymphocytes % (Manual) Cancelled Prolymphocyte % Cancelled Reactive Lymphs % (Man) Cancelled Monocytes % (Manual) Cancelled Eosinophils % (Manual) Cancelled Basophils % (Manual) Cancelled Metamyelocytes % (Man) Cancelled Myelocytes % (Man) Cancelled Promyelocytes % (Man) Cancelled Blast Cells % (Manual) Cancelled Plasma Cell % (Manual) Cancelled Other Cells % Cancelled Nucleated RBC % Cancelled Neutrophils # (Manual) Cancelled Band Neutrophils # Cancelled Total Absolute Neuts Cancelled Lymphocytes # (Manual) Cancelled Prolymphocyte # Cancelled Reactive Lymphs # Cancelled Total Abs Lymphocytes Cancelled Monocytes # (Manual) Cancelled Eosinophils # (Manual) Cancelled Basophils # (Manual) Cancelled Metamyelocytes # (Man) Cancelled Myelocytes # (Manual) Cancelled Promyelocytes # (Man) Cancelled Blast Cells # (Man) Cancelled Plasma Cell # (Manual) Cancelled Other Cells # Cancelled Nucleated RBCs # (Man) Cancelled Hypersegmented Neuts Cancelled Hyposegmented Neuts Cancelled Hypogranular Neuts Cancelled Large Granular Lymphs Cancelled # Lrg Granular Lymphs Cancelled Hairy Cells Cancelled Smudge Cells Cancelled Toxic Granulation Cancelled Toxic Vacuolation Cancelled Dohle Bodies Cancelled Marla Rods Cancelled Platelet Estimate Cancelled Hypogranular Platelets Cancelled Clumped Platelets Cancelled Giant Platelets Cancelled Platelet Satelliting Cancelled RBC Morphology Cancelled Polychromasia Cancelled Hypochromasia Cancelled Poikilocytosis Cancelled Basophilic Stippling Cancelled Anisocytosis Cancelled Microcytosis Cancelled Macrocytosis Cancelled Spherocytes Cancelled Pappenheimer Bodies Cancelled Sickle Cells Cancelled Target Cells Cancelled Tear Drop Cells Cancelled Ovalocytes Cancelled Stomatocytes Cancelled [place] Bodies Cancelled Echinocytes Cancelled Acanthocytes (Spur) Cancelled Rouleaux Cancelled RBC Agglutinates Cancelled Schistocytes Cancelled RBC Morph Comment Cancelled Sezary Cell Cancelled PT 9.3 INR 0.9 APTT 24.2 PTT Ratio 0.9 VBG pH VBG pCO2 VBG pO2 VBG HCO3 VBG O2 Saturation VBG Base Excess Barometric Pressure POC Sodium Sodium 134 L POC Potassium Potassium 6.0 H POC Chloride Chloride 96 L Carbon Dioxide 27 POC Total CO2 Anion Gap 11.0 POC Anion Gap POC BUN BUN 71 H Creatinine 2.37 H POC Creatinine Est Cr Clr Drug Dosing 45.6 Est GFR ( Amer) 34.9 Est GFR (Non-Af Amer) 30.1 BUN/Creatinine Ratio 29.9 H Glucose 515 H* POC Glucose POC Glucose (other) Estimat Average Glucose Hemoglobin A1c Osmolality POC Lactic Acid Walt Lactate Calcium 8.1 L POC Ioniz Calcium Obey Magnesium 2.3 Total Bilirubin 0.5 AST 8 L ALT 16 Alkaline Phosphatase 158 H Ammonia Total Creatine Kinase Troponin I 0.028 Total Protein 6.7 Albumin 3.0 L Globulin 3.7 Albumin/Globulin Ratio 0.8 L Triglycerides Cholesterol LDL Cholesterol, Calc VLDL Cholesterol, Calc HDL Cholesterol Cholesterol/HDL Ratio Beta-Hydroxybutyric Acd TSH Specimen Hemolysis Urine Color Urine Appearance Urine pH Ur Specific [place] Urine Protein Urine Glucose (UA) Urine Ketones Urine Blood Urine Nitrite Urine Bilirubin Urine Urobilinogen Ur Leukocyte Esterase Urine Opiates Screen Ur Methadone, Qual Urine Barbiturates Ur Phencyclidine (PCP) U Amphetamin/Meth Scrn MDMA (Ecstasy) Screen U Benzodiazepines Scrn Ur Cocaine Metabolite U Marijuana (THC) Screen Ethyl Alcohol mg/dL Blood Type Antibody Screen 04/30/19 04/30/19 04/30/19 18:42 18:50 19:00 WBC RBC Hgb POC Hgb Hct POC Hct MCV MCH MCHC RDW Std Deviation RDW Coeff of Taisha Plt Count MPV Immature Gran % (Auto) Neut % (Auto) Lymph % (Auto) [place] % (Auto) Eos % (Auto) Baso % (Auto) Immature Gran # (Auto) Neut # (Auto) Lymph # (Auto) [place] # (Auto) Eos # (Auto) Baso # (Auto) Absolute Nucleated RBC Nucleated RBC % (auto) Neutrophils % (Manual) Band Neutrophils % Lymphocytes % (Manual) Prolymphocyte % Reactive Lymphs % (Man) Monocytes % (Manual) Eosinophils % (Manual) Basophils % (Manual) Metamyelocytes % (Man) Myelocytes % (Man) Promyelocytes % (Man) Blast Cells % (Manual) Plasma Cell % (Manual) Other Cells % Nucleated RBC % Neutrophils # (Manual) Band Neutrophils # Total Absolute Neuts Lymphocytes # (Manual) Prolymphocyte # Reactive Lymphs # Total Abs Lymphocytes Monocytes # (Manual) Eosinophils # (Manual) Basophils # (Manual) Metamyelocytes # (Man) Myelocytes # (Manual) Promyelocytes # (Man) Blast Cells # (Man) Plasma Cell # (Manual) Other Cells # Nucleated RBCs # (Man) Hypersegmented Neuts Hyposegmented Neuts Hypogranular Neuts Large Granular Lymphs # Lrg Granular Lymphs Hairy Cells Smudge Cells Toxic Granulation Toxic Vacuolation Dohle Bodies Marla Rods Platelet Estimate Hypogranular Platelets Clumped Platelets Giant Platelets Platelet Satelliting RBC Morphology Polychromasia Hypochromasia Poikilocytosis Basophilic Stippling Anisocytosis Microcytosis Macrocytosis Spherocytes Pappenheimer Bodies Sickle Cells Target Cells Tear Drop Cells Ovalocytes Stomatocytes [place] Bodies Echinocytes Acanthocytes (Spur) Rouleaux RBC Agglutinates Schistocytes RBC Morph Comment Sezary Cell PT INR APTT PTT Ratio VBG pH VBG pCO2 VBG pO2 VBG HCO3 VBG O2 Saturation VBG Base Excess Barometric Pressure POC Sodium Sodium POC Potassium Potassium POC Chloride Chloride Carbon Dioxide POC Total CO2 Anion Gap POC Anion Gap POC BUN BUN Creatinine POC Creatinine Est Cr Clr Drug Dosing Est GFR ( Amer) Est GFR (Non-Af Amer) BUN/Creatinine Ratio Glucose POC Glucose POC Glucose (other) Estimat Average Glucose Hemoglobin A1c Osmolality 333 H POC Lactic Acid Walt 2.60 H Lactate Calcium POC Ioniz Calcium Obey Magnesium Total Bilirubin AST ALT Alkaline Phosphatase Ammonia Total Creatine Kinase Troponin I Total Protein Albumin Globulin Albumin/Globulin Ratio Triglycerides Cholesterol LDL Cholesterol, Calc VLDL Cholesterol, Calc HDL Cholesterol Cholesterol/HDL Ratio Beta-Hydroxybutyric Acd TSH Specimen Hemolysis Urine Color Urine Appearance Urine pH Ur Specific [place] Urine Protein Urine Glucose (UA) Urine Ketones Urine Blood Urine Nitrite Urine Bilirubin Urine Urobilinogen Ur Leukocyte Esterase Urine Opiates Screen Ur Methadone, Qual Urine Barbiturates Ur Phencyclidine (PCP) U Amphetamin/Meth Scrn MDMA (Ecstasy) Screen U Benzodiazepines Scrn Ur Cocaine Metabolite U Marijuana (THC) Screen Ethyl Alcohol mg/dL < 3.0 Blood Type Antibody Screen 04/30/19 04/30/19 04/30/19 19:04 19:50 19:50 WBC 9.88 RBC 3.95 L Hgb 11.7 L POC Hgb 12.6 L Hct 35.9 L POC Hct 37 L MCV 90.9 MCH 29.6 MCHC 32.6 RDW Std Deviation 46.5 H RDW Coeff of Taisha 14.0 Plt Count 243 MPV 11.4 H Immature Gran % (Auto) 0.3 Neut % (Auto) 60.4 Lymph % (Auto) 28.7 [place] % (Auto) 5.1 Eos % (Auto) 5.1 Baso % (Auto) 0.4 Immature Gran # (Auto) 0.03 H Neut # (Auto) 5.97 Lymph # (Auto) 2.84 [place] # (Auto) 0.50 Eos # (Auto) 0.50 Baso # (Auto) 0.04 Absolute Nucleated RBC Nucleated RBC % (auto) Neutrophils % (Manual) Band Neutrophils % Lymphocytes % (Manual) Prolymphocyte % Reactive Lymphs % (Man) Monocytes % (Manual) Eosinophils % (Manual) Basophils % (Manual) Metamyelocytes % (Man) Myelocytes % (Man) Promyelocytes % (Man) Blast Cells % (Manual) Plasma Cell % (Manual) Other Cells % Nucleated RBC % Neutrophils # (Manual) Band Neutrophils # Total Absolute Neuts Lymphocytes # (Manual) Prolymphocyte # Reactive Lymphs # Total Abs Lymphocytes Monocytes # (Manual) Eosinophils # (Manual) Basophils # (Manual) Metamyelocytes # (Man) Myelocytes # (Manual) Promyelocytes # (Man) Blast Cells # (Man) Plasma Cell # (Manual) Other Cells # Nucleated RBCs # (Man) Hypersegmented Neuts Hyposegmented Neuts Hypogranular Neuts Large Granular Lymphs # Lrg Granular Lymphs Hairy Cells Smudge Cells Toxic Granulation Toxic Vacuolation Dohle Bodies Marla Rods Platelet Estimate Hypogranular Platelets Clumped Platelets Giant Platelets Platelet Satelliting RBC Morphology Polychromasia Hypochromasia Poikilocytosis Basophilic Stippling Anisocytosis Microcytosis Macrocytosis Spherocytes Pappenheimer Bodies Sickle Cells Target Cells Tear Drop Cells Ovalocytes Stomatocytes [place] Bodies Echinocytes Acanthocytes (Spur) Rouleaux RBC Agglutinates Schistocytes RBC Morph Comment Sezary Cell PT INR APTT PTT Ratio VBG pH VBG pCO2 VBG pO2 VBG HCO3 VBG O2 Saturation VBG Base Excess Barometric Pressure POC Sodium 131 L Sodium POC Potassium 6.1 H* Potassium POC Chloride 97 L Chloride Carbon Dioxide POC Total CO2 29 Anion Gap POC Anion Gap 12.0 L POC BUN 65 H BUN Creatinine POC Creatinine 2.3 H Est Cr Clr Drug Dosing Est GFR ( Amer) Est GFR (Non-Af Amer) BUN/Creatinine Ratio Glucose POC Glucose POC Glucose (other) 510 H* Estimat Average Glucose 255 Hemoglobin A1c 10.5 H Osmolality POC Lactic Acid Walt Lactate Calcium POC Ioniz Calcium Obey 1.02 L Magnesium Total Bilirubin AST ALT Alkaline Phosphatase Ammonia Total Creatine Kinase Troponin I Total Protein Albumin Globulin Albumin/Globulin Ratio Triglycerides Cholesterol LDL Cholesterol, Calc VLDL Cholesterol, Calc HDL Cholesterol Cholesterol/HDL Ratio Beta-Hydroxybutyric Acd TSH Specimen Hemolysis Urine Color Urine Appearance Urine pH Ur Specific [place] Urine Protein Urine Glucose (UA) Urine Ketones Urine Blood Urine Nitrite Urine Bilirubin Urine Urobilinogen Ur Leukocyte Esterase Urine Opiates Screen Ur Methadone, Qual Urine Barbiturates Ur Phencyclidine (PCP) U Amphetamin/Meth Scrn MDMA (Ecstasy) Screen U Benzodiazepines Scrn Ur Cocaine Metabolite U Marijuana (THC) Screen Ethyl Alcohol mg/dL Blood Type Antibody Screen 04/30/19 04/30/19 04/30/19 21:17 22:20 22:20 WBC RBC Hgb POC Hgb Hct POC Hct MCV MCH MCHC RDW Std Deviation RDW Coeff of Taisha Plt Count MPV Immature Gran % (Auto) Neut % (Auto) Lymph % (Auto) [place] % (Auto) Eos % (Auto) Baso % (Auto) Immature Gran # (Auto) Neut # (Auto) Lymph # (Auto) [place] # (Auto) Eos # (Auto) Baso # (Auto) Absolute Nucleated RBC Nucleated RBC % (auto) Neutrophils % (Manual) Band Neutrophils % Lymphocytes % (Manual) Prolymphocyte % Reactive Lymphs % (Man) Monocytes % (Manual) Eosinophils % (Manual) Basophils % (Manual) Metamyelocytes % (Man) Myelocytes % (Man) Promyelocytes % (Man) Blast Cells % (Manual) Plasma Cell % (Manual) Other Cells % Nucleated RBC % Neutrophils # (Manual) Band Neutrophils # Total Absolute Neuts Lymphocytes # (Manual) Prolymphocyte # Reactive Lymphs # Total Abs Lymphocytes Monocytes # (Manual) Eosinophils # (Manual) Basophils # (Manual) Metamyelocytes # (Man) Myelocytes # (Manual) Promyelocytes # (Man) Blast Cells # (Man) Plasma Cell # (Manual) Other Cells # Nucleated RBCs # (Man) Hypersegmented Neuts Hyposegmented Neuts Hypogranular Neuts Large Granular Lymphs # Lrg Granular Lymphs Hairy Cells Smudge Cells Toxic Granulation Toxic Vacuolation Dohle Bodies Marla Rods Platelet Estimate Hypogranular Platelets Clumped Platelets Giant Platelets Platelet Satelliting RBC Morphology Polychromasia Hypochromasia Poikilocytosis Basophilic Stippling Anisocytosis Microcytosis Macrocytosis Spherocytes Pappenheimer Bodies Sickle Cells Target Cells Tear Drop Cells Ovalocytes Stomatocytes [place] Bodies Echinocytes Acanthocytes (Spur) Rouleaux RBC Agglutinates Schistocytes RBC Morph Comment Sezary Cell PT INR APTT PTT Ratio VBG pH VBG pCO2 VBG pO2 VBG HCO3 VBG O2 Saturation VBG Base Excess Barometric Pressure POC Sodium Sodium 134 L POC Potassium Potassium 5.5 H POC Chloride Chloride 99 Carbon Dioxide 27 POC Total CO2 Anion Gap 8.0 POC Anion Gap POC BUN BUN 72 H Creatinine 2.10 H POC Creatinine Est Cr Clr Drug Dosing 51.4 Est GFR ( Amer) 40.4 Est GFR (Non-Af Amer) 34.9 BUN/Creatinine Ratio 34.1 H Glucose 432 H* POC Glucose 415 H* POC Glucose (other) Estimat Average Glucose Hemoglobin A1c Osmolality POC Lactic Acid Walt Lactate Calcium 7.5 L POC Ioniz Calcium Obey Magnesium Total Bilirubin AST ALT Alkaline Phosphatase Ammonia Total Creatine Kinase 109 Troponin I Total Protein Albumin Globulin Albumin/Globulin Ratio Triglycerides Cholesterol LDL Cholesterol, Calc VLDL Cholesterol, Calc HDL Cholesterol Cholesterol/HDL Ratio Beta-Hydroxybutyric Acd TSH 1.300 Specimen Hemolysis Urine Color Urine Appearance Urine pH Ur Specific [place] Urine Protein Urine Glucose (UA) Urine Ketones Urine Blood Urine Nitrite Urine Bilirubin Urine Urobilinogen Ur Leukocyte Esterase Urine Opiates Screen Ur Methadone, Qual Urine Barbiturates Ur Phencyclidine (PCP) U Amphetamin/Meth Scrn MDMA (Ecstasy) Screen U Benzodiazepines Scrn Ur Cocaine Metabolite U Marijuana (THC) Screen Ethyl Alcohol mg/dL Blood Type Antibody Screen 04/30/19 04/30/19 04/30/19 22:20 22:20 23:07 WBC RBC Hgb POC Hgb Hct POC Hct MCV MCH MCHC RDW Std Deviation RDW Coeff of Taisha Plt Count MPV Immature Gran % (Auto) Neut % (Auto) Lymph % (Auto) [place] % (Auto) Eos % (Auto) Baso % (Auto) Immature Gran # (Auto) Neut # (Auto) Lymph # (Auto) [place] # (Auto) Eos # (Auto) Baso # (Auto) Absolute Nucleated RBC Nucleated RBC % (auto) Neutrophils % (Manual) Band Neutrophils % Lymphocytes % (Manual) Prolymphocyte % Reactive Lymphs % (Man) Monocytes % (Manual) Eosinophils % (Manual) Basophils % (Manual) Metamyelocytes % (Man) Myelocytes % (Man) Promyelocytes % (Man) Blast Cells % (Manual) Plasma Cell % (Manual) Other Cells % Nucleated RBC % Neutrophils # (Manual) Band Neutrophils # Total Absolute Neuts Lymphocytes # (Manual) Prolymphocyte # Reactive Lymphs # Total Abs Lymphocytes Monocytes # (Manual) Eosinophils # (Manual) Basophils # (Manual) Metamyelocytes # (Man) Myelocytes # (Manual) Promyelocytes # (Man) Blast Cells # (Man) Plasma Cell # (Manual) Other Cells # Nucleated RBCs # (Man) Hypersegmented Neuts Hyposegmented Neuts Hypogranular Neuts Large Granular Lymphs # Lrg Granular Lymphs Hairy Cells Smudge Cells Toxic Granulation Toxic Vacuolation Dohle Bodies Marla Rods Platelet Estimate Hypogranular Platelets Clumped Platelets Giant Platelets Platelet Satelliting RBC Morphology Polychromasia Hypochromasia Poikilocytosis Basophilic Stippling Anisocytosis Microcytosis Macrocytosis Spherocytes Pappenheimer Bodies Sickle Cells Target Cells Tear Drop Cells Ovalocytes Stomatocytes [place] Bodies Echinocytes Acanthocytes (Spur) Rouleaux RBC Agglutinates Schistocytes RBC Morph Comment Sezary Cell PT INR APTT PTT Ratio VBG pH VBG pCO2 VBG pO2 VBG HCO3 VBG O2 Saturation VBG Base Excess Barometric Pressure POC Sodium Sodium POC Potassium Potassium POC Chloride Chloride Carbon Dioxide POC Total CO2 Anion Gap POC Anion Gap POC BUN BUN Creatinine POC Creatinine Est Cr Clr Drug Dosing Est GFR ( Amer) Est GFR (Non-Af Amer) BUN/Creatinine Ratio Glucose POC Glucose POC Glucose (other) Estimat Average Glucose Hemoglobin A1c Osmolality POC Lactic Acid Walt Lactate Calcium POC Ioniz Calcium Obey Magnesium Total Bilirubin AST ALT Alkaline Phosphatase Ammonia Total Creatine Kinase Troponin I Total Protein Albumin Globulin Albumin/Globulin Ratio Triglycerides Cholesterol LDL Cholesterol, Calc VLDL Cholesterol, Calc HDL Cholesterol Cholesterol/HDL Ratio Beta-Hydroxybutyric Acd 1.33 TSH Specimen Hemolysis Urine Color Urine Appearance Urine pH Ur Specific [place] Urine Protein Urine Glucose (UA) Urine Ketones Urine Blood Urine Nitrite Urine Bilirubin Urine Urobilinogen Ur Leukocyte Esterase Urine Opiates Screen Ur Methadone, Qual Urine Barbiturates Ur Phencyclidine (PCP) U Amphetamin/Meth Scrn MDMA (Ecstasy) Screen U Benzodiazepines Scrn Ur Cocaine Metabolite U Marijuana (THC) Screen Ethyl Alcohol mg/dL Blood Type O Positive Antibody Screen NEGATIVE 04/30/19 04/30/19 05/01/19 23:07 23:07 01:31 WBC RBC Hgb POC Hgb Hct POC Hct MCV MCH MCHC RDW Std Deviation RDW Coeff of Taisha Plt Count MPV Immature Gran % (Auto) Neut % (Auto) Lymph % (Auto) [place] % (Auto) Eos % (Auto) Baso % (Auto) Immature Gran # (Auto) Neut # (Auto) Lymph # (Auto) [place] # (Auto) Eos # (Auto) Baso # (Auto) Absolute Nucleated RBC Nucleated RBC % (auto) Neutrophils % (Manual) Band Neutrophils % Lymphocytes % (Manual) Prolymphocyte % Reactive Lymphs % (Man) Monocytes % (Manual) Eosinophils % (Manual) Basophils % (Manual) Metamyelocytes % (Man) Myelocytes % (Man) Promyelocytes % (Man) Blast Cells % (Manual) Plasma Cell % (Manual) Other Cells % Nucleated RBC % Neutrophils # (Manual) Band Neutrophils # Total Absolute Neuts Lymphocytes # (Manual) Prolymphocyte # Reactive Lymphs # Total Abs Lymphocytes Monocytes # (Manual) Eosinophils # (Manual) Basophils # (Manual) Metamyelocytes # (Man) Myelocytes # (Manual) Promyelocytes # (Man) Blast Cells # (Man) Plasma Cell # (Manual) Other Cells # Nucleated RBCs # (Man) Hypersegmented Neuts Hyposegmented Neuts Hypogranular Neuts Large Granular Lymphs # Lrg Granular Lymphs Hairy Cells Smudge Cells Toxic Granulation Toxic Vacuolation Dohle Bodies Marla Rods Platelet Estimate Hypogranular Platelets Clumped Platelets Giant Platelets Platelet Satelliting RBC Morphology Polychromasia Hypochromasia Poikilocytosis Basophilic Stippling Anisocytosis Microcytosis Macrocytosis Spherocytes Pappenheimer Bodies Sickle Cells Target Cells Tear Drop Cells Ovalocytes Stomatocytes [place] Bodies Echinocytes Acanthocytes (Spur) Rouleaux RBC Agglutinates Schistocytes RBC Morph Comment Sezary Cell PT INR APTT PTT Ratio VBG pH 7.37 VBG pCO2 48 VBG pO2 51 VBG HCO3 27 VBG O2 Saturation 83.3 VBG Base Excess 1.4 Barometric Pressure 734.9 POC Sodium Sodium POC Potassium Potassium POC Chloride Chloride Carbon Dioxide POC Total CO2 Anion Gap POC Anion Gap POC BUN BUN Creatinine POC Creatinine Est Cr Clr Drug Dosing Est GFR ( Amer) Est GFR (Non-Af Amer) BUN/Creatinine Ratio Glucose POC Glucose 458 H* POC Glucose (other) Estimat Average Glucose Hemoglobin A1c Osmolality POC Lactic Acid Walt Lactate Calcium POC Ioniz Calcium Obey Magnesium Total Bilirubin AST ALT Alkaline Phosphatase Ammonia Total Creatine Kinase Troponin I Total Protein Albumin Globulin Albumin/Globulin Ratio Triglycerides Cholesterol LDL Cholesterol, Calc VLDL Cholesterol, Calc HDL Cholesterol Cholesterol/HDL Ratio Beta-Hydroxybutyric Acd TSH Specimen Hemolysis Urine Color Urine Appearance Urine pH Ur Specific [place] Urine Protein Urine Glucose (UA) Urine Ketones Urine Blood Urine Nitrite Urine Bilirubin Urine Urobilinogen Ur Leukocyte Esterase Urine Opiates Screen Ur Methadone, Qual Urine Barbiturates Ur Phencyclidine (PCP) U Amphetamin/Meth Scrn MDMA (Ecstasy) Screen U Benzodiazepines Scrn Ur Cocaine Metabolite U Marijuana (THC) Screen Ethyl Alcohol mg/dL Blood Type Antibody Screen 05/01/19 05/01/19 05/01/19 03:15 03:59 03:59 WBC 9.72 RBC 4.04 L Hgb 12.0 L POC Hgb Hct 36.7 L POC Hct MCV 90.8 MCH 29.7 MCHC 32.7 RDW Std Deviation 45.9 RDW Coeff of Taisha 13.9 Plt Count 246 MPV 10.9 H Immature Gran % (Auto) 0.4 Neut % (Auto) 59.0 Lymph % (Auto) 29.5 [place] % (Auto) 4.5 Eos % (Auto) 6.3 Baso % (Auto) 0.3 Immature Gran # (Auto) 0.04 H Neut # (Auto) 5.73 Lymph # (Auto) 2.87 [place] # (Auto) 0.44 Eos # (Auto) 0.61 H Baso # (Auto) 0.03 Absolute Nucleated RBC Nucleated RBC % (auto) Neutrophils % (Manual) Band Neutrophils % Lymphocytes % (Manual) Prolymphocyte % Reactive Lymphs % (Man) Monocytes % (Manual) Eosinophils % (Manual) Basophils % (Manual) Metamyelocytes % (Man) Myelocytes % (Man) Promyelocytes % (Man) Blast Cells % (Manual) Plasma Cell % (Manual) Other Cells % Nucleated RBC % Neutrophils # (Manual) Band Neutrophils # Total Absolute Neuts Lymphocytes # (Manual) Prolymphocyte # Reactive Lymphs # Total Abs Lymphocytes Monocytes # (Manual) Eosinophils # (Manual) Basophils # (Manual) Metamyelocytes # (Man) Myelocytes # (Manual) Promyelocytes # (Man) Blast Cells # (Man) Plasma Cell # (Manual) Other Cells # Nucleated RBCs # (Man) Hypersegmented Neuts Hyposegmented Neuts Hypogranular Neuts Large Granular Lymphs # Lrg Granular Lymphs Hairy Cells Smudge Cells Toxic Granulation Toxic Vacuolation Dohle Bodies Marla Rods Platelet Estimate Hypogranular Platelets Clumped Platelets Giant Platelets Platelet Satelliting RBC Morphology Polychromasia Hypochromasia Poikilocytosis Basophilic Stippling Anisocytosis Microcytosis Macrocytosis Spherocytes Pappenheimer Bodies Sickle Cells Target Cells Tear Drop Cells Ovalocytes Stomatocytes [place] Bodies Echinocytes Acanthocytes (Spur) Rouleaux RBC Agglutinates Schistocytes RBC Morph Comment Sezary Cell PT INR APTT PTT Ratio VBG pH VBG pCO2 VBG pO2 VBG HCO3 VBG O2 Saturation VBG Base Excess Barometric Pressure POC Sodium Sodium 137 POC Potassium Potassium 4.8 POC Chloride Chloride 101 Carbon Dioxide 27 POC Total CO2 Anion Gap 9.0 POC Anion Gap POC BUN BUN 62 H Creatinine 1.70 H D POC Creatinine Est Cr Clr Drug Dosing 63.4 Est GFR ( Amer) 52.2 Est GFR (Non-Af Amer) 45.0 BUN/Creatinine Ratio 36.2 H Glucose 361 H* POC Glucose 424 H* POC Glucose (other) Estimat Average Glucose Hemoglobin A1c Osmolality POC Lactic Acid Walt Lactate Calcium 7.5 L POC Ioniz Calcium Obey Magnesium Total Bilirubin AST ALT Alkaline Phosphatase Ammonia Total Creatine Kinase Troponin I Total Protein Albumin Globulin Albumin/Globulin Ratio Triglycerides 1578 H Cholesterol 213 H LDL Cholesterol, Calc VLDL Cholesterol, Calc HDL Cholesterol 23 Cholesterol/HDL Ratio 9 Beta-Hydroxybutyric Acd TSH Specimen Hemolysis Urine Color Urine Appearance Urine pH Ur Specific [place] Urine Protein Urine Glucose (UA) Urine Ketones Urine Blood Urine Nitrite Urine Bilirubin Urine Urobilinogen Ur Leukocyte Esterase Urine Opiates Screen Ur Methadone, Qual Urine Barbiturates Ur Phencyclidine (PCP) U Amphetamin/Meth Scrn MDMA (Ecstasy) Screen U Benzodiazepines Scrn Ur Cocaine Metabolite U Marijuana (THC) Screen Ethyl Alcohol mg/dL Blood Type Antibody Screen 05/01/19 05/01/19 05/01/19 03:59 04:02 04:15 WBC RBC Hgb POC Hgb Hct POC Hct MCV MCH MCHC RDW Std Deviation RDW Coeff of Taisha Plt Count MPV Immature Gran % (Auto) Neut % (Auto) Lymph % (Auto) [place] % (Auto) Eos % (Auto) Baso % (Auto) Immature Gran # (Auto) Neut # (Auto) Lymph # (Auto) [place] # (Auto) Eos # (Auto) Baso # (Auto) Absolute Nucleated RBC Nucleated RBC % (auto) Neutrophils % (Manual) Band Neutrophils % Lymphocytes % (Manual) Prolymphocyte % Reactive Lymphs % (Man) Monocytes % (Manual) Eosinophils % (Manual) Basophils % (Manual) Metamyelocytes % (Man) Myelocytes % (Man) Promyelocytes % (Man) Blast Cells % (Manual) Plasma Cell % (Manual) Other Cells % Nucleated RBC % Neutrophils # (Manual) Band Neutrophils # Total Absolute Neuts Lymphocytes # (Manual) Prolymphocyte # Reactive Lymphs # Total Abs Lymphocytes Monocytes # (Manual) Eosinophils # (Manual) Basophils # (Manual) Metamyelocytes # (Man) Myelocytes # (Manual) Promyelocytes # (Man) Blast Cells # (Man) Plasma Cell # (Manual) Other Cells # Nucleated RBCs # (Man) Hypersegmented Neuts Hyposegmented Neuts Hypogranular Neuts Large Granular Lymphs # Lrg Granular Lymphs Hairy Cells Smudge Cells Toxic Granulation Toxic Vacuolation Dohle Bodies Marla Rods Platelet Estimate Hypogranular Platelets Clumped Platelets Giant Platelets Platelet Satelliting RBC Morphology Polychromasia Hypochromasia Poikilocytosis Basophilic Stippling Anisocytosis Microcytosis Macrocytosis Spherocytes Pappenheimer Bodies Sickle Cells Target Cells Tear Drop Cells Ovalocytes Stomatocytes [place] Bodies Echinocytes Acanthocytes (Spur) Rouleaux RBC Agglutinates Schistocytes RBC Morph Comment Sezary Cell PT INR APTT PTT Ratio VBG pH VBG pCO2 VBG pO2 VBG HCO3 VBG O2 Saturation VBG Base Excess Barometric Pressure POC Sodium Sodium POC Potassium Potassium POC Chloride Chloride Carbon Dioxide POC Total CO2 Anion Gap POC Anion Gap POC BUN BUN Creatinine POC Creatinine Est Cr Clr Drug Dosing Est GFR ( Amer) Est GFR (Non-Af Amer) BUN/Creatinine Ratio Glucose POC Glucose 352 H* POC Glucose (other) Estimat Average Glucose Hemoglobin A1c Osmolality POC Lactic Acid Walt Lactate Calcium POC Ioniz Calcium Obey Magnesium Total Bilirubin AST ALT Alkaline Phosphatase Ammonia Total Creatine Kinase Troponin I Total Protein Albumin Globulin Albumin/Globulin Ratio Triglycerides Cholesterol LDL Cholesterol, Calc VLDL Cholesterol, Calc HDL Cholesterol Cholesterol/HDL Ratio Beta-Hydroxybutyric Acd TSH Specimen Hemolysis Urine Color Yellow Urine Appearance Clear Urine pH 6.0 Ur Specific [place] 1.016 Urine Protein Negative Urine Glucose (UA) 3+ H Urine Ketones Negative Urine Blood Negative Urine Nitrite Negative Urine Bilirubin Negative Urine Urobilinogen Negative Ur Leukocyte Esterase Negative Urine Opiates Screen Ur Methadone, Qual Urine Barbiturates Ur Phencyclidine (PCP) U Amphetamin/Meth Scrn MDMA (Ecstasy) Screen U Benzodiazepines Scrn Ur Cocaine Metabolite U Marijuana (THC) Screen Ethyl Alcohol mg/dL Blood Type Antibody Screen 05/01/19 05/01/19 05/01/19 04:15 05:19 06:16 WBC RBC Hgb POC Hgb Hct POC Hct MCV MCH MCHC RDW Std Deviation RDW Coeff of Taisha Plt Count MPV Immature Gran % (Auto) Neut % (Auto) Lymph % (Auto) [place] % (Auto) Eos % (Auto) Baso % (Auto) Immature Gran # (Auto) Neut # (Auto) Lymph # (Auto) [place] # (Auto) Eos # (Auto) Baso # (Auto) Absolute Nucleated RBC Nucleated RBC % (auto) Neutrophils % (Manual) Band Neutrophils % Lymphocytes % (Manual) Prolymphocyte % Reactive Lymphs % (Man) Monocytes % (Manual) Eosinophils % (Manual) Basophils % (Manual) Metamyelocytes % (Man) Myelocytes % (Man) Promyelocytes % (Man) Blast Cells % (Manual) Plasma Cell % (Manual) Other Cells % Nucleated RBC % Neutrophils # (Manual) Band Neutrophils # Total Absolute Neuts Lymphocytes # (Manual) Prolymphocyte # Reactive Lymphs # Total Abs Lymphocytes Monocytes # (Manual) Eosinophils # (Manual) Basophils # (Manual) Metamyelocytes # (Man) Myelocytes # (Manual) Promyelocytes # (Man) Blast Cells # (Man) Plasma Cell # (Manual) Other Cells # Nucleated RBCs # (Man) Hypersegmented Neuts Hyposegmented Neuts Hypogranular Neuts Large Granular Lymphs # Lrg Granular Lymphs Hairy Cells Smudge Cells Toxic Granulation Toxic Vacuolation Dohle Bodies Marla Rods Platelet Estimate Hypogranular Platelets Clumped Platelets Giant Platelets Platelet Satelliting RBC Morphology Polychromasia Hypochromasia Poikilocytosis Basophilic Stippling Anisocytosis Microcytosis Macrocytosis Spherocytes Pappenheimer Bodies Sickle Cells Target Cells Tear Drop Cells Ovalocytes Stomatocytes [place] Bodies Echinocytes Acanthocytes (Spur) Rouleaux RBC Agglutinates Schistocytes RBC Morph Comment Sezary Cell PT INR APTT PTT Ratio VBG pH VBG pCO2 VBG pO2 VBG HCO3 VBG O2 Saturation VBG Base Excess Barometric Pressure POC Sodium Sodium POC Potassium Potassium POC Chloride Chloride Carbon Dioxide POC Total CO2 Anion Gap POC Anion Gap POC BUN BUN Creatinine POC Creatinine Est Cr Clr Drug Dosing Est GFR ( Amer) Est GFR (Non-Af Amer) BUN/Creatinine Ratio Glucose POC Glucose 330 H* 298 H POC Glucose (other) Estimat Average Glucose Hemoglobin A1c Osmolality POC Lactic Acid Walt Lactate Calcium POC Ioniz Calcium Obey Magnesium Total Bilirubin AST ALT Alkaline Phosphatase Ammonia Total Creatine Kinase Troponin I Total Protein Albumin Globulin Albumin/Globulin Ratio Triglycerides Cholesterol LDL Cholesterol, Calc VLDL Cholesterol, Calc HDL Cholesterol Cholesterol/HDL Ratio Beta-Hydroxybutyric Acd TSH Specimen Hemolysis Urine Color Urine Appearance Urine pH Ur Specific [place] Urine Protein Urine Glucose (UA) Urine Ketones Urine Blood Urine Nitrite Urine Bilirubin Urine Urobilinogen Ur Leukocyte Esterase Urine Opiates Screen Neg Ur Methadone, Qual Neg Urine Barbiturates Neg Ur Phencyclidine (PCP) Neg U Amphetamin/Meth Scrn Neg MDMA (Ecstasy) Screen Neg U Benzodiazepines Scrn Neg Ur Cocaine Metabolite Neg U Marijuana (THC) Screen Neg Ethyl Alcohol mg/dL Blood Type Antibody Screen 05/01/19 05/01/19 05/01/19 07:40 08:36 10:28 WBC RBC Hgb POC Hgb Hct POC Hct MCV MCH MCHC RDW Std Deviation RDW Coeff of Taisha Plt Count MPV Immature Gran % (Auto) Neut % (Auto) Lymph % (Auto) [place] % (Auto) Eos % (Auto) Baso % (Auto) Immature Gran # (Auto) Neut # (Auto) Lymph # (Auto) [place] # (Auto) Eos # (Auto) Baso # (Auto) Absolute Nucleated RBC Nucleated RBC % (auto) Neutrophils % (Manual) Band Neutrophils % Lymphocytes % (Manual) Prolymphocyte % Reactive Lymphs % (Man) Monocytes % (Manual) Eosinophils % (Manual) Basophils % (Manual) Metamyelocytes % (Man) Myelocytes % (Man) Promyelocytes % (Man) Blast Cells % (Manual) Plasma Cell % (Manual) Other Cells % Nucleated RBC % Neutrophils # (Manual) Band Neutrophils # Total Absolute Neuts Lymphocytes # (Manual) Prolymphocyte # Reactive Lymphs # Total Abs Lymphocytes Monocytes # (Manual) Eosinophils # (Manual) Basophils # (Manual) Metamyelocytes # (Man) Myelocytes # (Manual) Promyelocytes # (Man) Blast Cells # (Man) Plasma Cell # (Manual) Other Cells # Nucleated RBCs # (Man) Hypersegmented Neuts Hyposegmented Neuts Hypogranular Neuts Large Granular Lymphs # Lrg Granular Lymphs Hairy Cells Smudge Cells Toxic Granulation Toxic Vacuolation Dohle Bodies Marla Rods Platelet Estimate Hypogranular Platelets Clumped Platelets Giant Platelets Platelet Satelliting RBC Morphology Polychromasia Hypochromasia Poikilocytosis Basophilic Stippling Anisocytosis Microcytosis Macrocytosis Spherocytes Pappenheimer Bodies Sickle Cells Target Cells Tear Drop Cells Ovalocytes Stomatocytes [place] Bodies Echinocytes Acanthocytes (Spur) Rouleaux RBC Agglutinates Schistocytes RBC Morph Comment Sezary Cell PT INR APTT PTT Ratio VBG pH VBG pCO2 VBG pO2 VBG HCO3 VBG O2 Saturation VBG Base Excess Barometric Pressure POC Sodium Sodium POC Potassium Potassium POC Chloride Chloride Carbon Dioxide POC Total CO2 Anion Gap POC Anion Gap POC BUN BUN Creatinine POC Creatinine Est Cr Clr Drug Dosing Est GFR ( Amer) Est GFR (Non-Af Amer) BUN/Creatinine Ratio Glucose POC Glucose 231 H 236 H 239 H POC Glucose (other) Estimat Average Glucose Hemoglobin A1c Osmolality POC Lactic Acid Walt Lactate Calcium POC Ioniz Calcium Obey Magnesium Total Bilirubin AST ALT Alkaline Phosphatase Ammonia Total Creatine Kinase Troponin I Total Protein Albumin Globulin Albumin/Globulin Ratio Triglycerides Cholesterol LDL Cholesterol, Calc VLDL Cholesterol, Calc HDL Cholesterol Cholesterol/HDL Ratio Beta-Hydroxybutyric Acd TSH Specimen Hemolysis Urine Color Urine Appearance Urine pH Ur Specific [place] Urine Protein Urine Glucose (UA) Urine Ketones Urine Blood Urine Nitrite Urine Bilirubin Urine Urobilinogen Ur Leukocyte Esterase Urine Opiates Screen Ur Methadone, Qual Urine Barbiturates Ur Phencyclidine (PCP) U Amphetamin/Meth Scrn MDMA (Ecstasy) Screen U Benzodiazepines Scrn Ur Cocaine Metabolite U Marijuana (THC) Screen Ethyl Alcohol mg/dL Blood Type Antibody Screen 05/01/19 11:30 WBC RBC Hgb POC Hgb Hct POC Hct MCV MCH MCHC RDW Std Deviation RDW Coeff of Taisha Plt Count MPV Immature Gran % (Auto) Neut % (Auto) Lymph % (Auto) [place] % (Auto) Eos % (Auto) Baso % (Auto) Immature Gran # (Auto) Neut # (Auto) Lymph # (Auto) [place] # (Auto) Eos # (Auto) Baso # (Auto) Absolute Nucleated RBC Nucleated RBC % (auto) Neutrophils % (Manual) Band Neutrophils % Lymphocytes % (Manual) Prolymphocyte % Reactive Lymphs % (Man) Monocytes % (Manual) Eosinophils % (Manual) Basophils % (Manual) Metamyelocytes % (Man) Myelocytes % (Man) Promyelocytes % (Man) Blast Cells % (Manual) Plasma Cell % (Manual) Other Cells % Nucleated RBC % Neutrophils # (Manual) Band Neutrophils # Total Absolute Neuts Lymphocytes # (Manual) Prolymphocyte # Reactive Lymphs # Total Abs Lymphocytes Monocytes # (Manual) Eosinophils # (Manual) Basophils # (Manual) Metamyelocytes # (Man) Myelocytes # (Manual) Promyelocytes # (Man) Blast Cells # (Man) Plasma Cell # (Manual) Other Cells # Nucleated RBCs # (Man) Hypersegmented Neuts Hyposegmented Neuts Hypogranular Neuts Large Granular Lymphs # Lrg Granular Lymphs Hairy Cells Smudge Cells Toxic Granulation Toxic Vacuolation Dohle Bodies Marla Rods Platelet Estimate Hypogranular Platelets Clumped Platelets Giant Platelets Platelet Satelliting RBC Morphology Polychromasia Hypochromasia Poikilocytosis Basophilic Stippling Anisocytosis Microcytosis Macrocytosis Spherocytes Pappenheimer Bodies Sickle Cells Target Cells Tear Drop Cells Ovalocytes Stomatocytes [place] Bodies Echinocytes Acanthocytes (Spur) Rouleaux RBC Agglutinates Schistocytes RBC Morph Comment Sezary Cell PT INR APTT PTT Ratio VBG pH VBG pCO2 VBG pO2 VBG HCO3 VBG O2 Saturation VBG Base Excess Barometric Pressure POC Sodium Sodium POC Potassium Potassium POC Chloride Chloride Carbon Dioxide POC Total CO2 Anion Gap POC Anion Gap POC BUN BUN Creatinine POC Creatinine Est Cr Clr Drug Dosing Est GFR ( Amer) Est GFR (Non-Af Amer) BUN/Creatinine Ratio Glucose POC Glucose 191 H POC Glucose (other) Estimat Average Glucose Hemoglobin A1c Osmolality POC Lactic Acid Walt Lactate Calcium POC Ioniz Calcium Obey Magnesium Total Bilirubin AST ALT Alkaline Phosphatase Ammonia Total Creatine Kinase Troponin I Total Protein Albumin Globulin Albumin/Globulin Ratio Triglycerides Cholesterol LDL Cholesterol, Calc VLDL Cholesterol, Calc HDL Cholesterol Cholesterol/HDL Ratio Beta-Hydroxybutyric Acd TSH Specimen Hemolysis Urine Color Urine Appearance Urine pH Ur Specific [place] Urine Protein Urine Glucose (UA) Urine Ketones Urine Blood Urine Nitrite Urine Bilirubin Urine Urobilinogen Ur Leukocyte Esterase Urine Opiates Screen Ur Methadone, Qual Urine Barbiturates Ur Phencyclidine (PCP) U Amphetamin/Meth Scrn MDMA (Ecstasy) Screen U Benzodiazepines Scrn Ur Cocaine Metabolite U Marijuana (THC) Screen Ethyl Alcohol mg/dL Blood Type Antibody Screen
[2019-05-01] MEDS ORDERED: INSULIN GLARGINE SOLOSTAR 100 UNITS/ML 3 ML PEN SC SCH ×2 (09:00→21:00)
[2019-05-01] MEDS ORDERED: INSULIN GLARGINE SOLOSTAR 100 UNITS/ML 3 ML PEN SC ONE (09:00)
[2019-05-01] MEDS: INSULIN ASPART 100 UNITS/ML 3 ML PEN SC SCH ×4 (09:11→21:26)
--- NOTE | 2019-05-01 10:12 | Magnetic Resonance Report ---
MR angio head wo con HISTORY: Mental status change tia TECHNIQUE: 3-D [id number] MRA of the brain was performed without contrast. COMPARISON STUDY: None FINDINGS: Complete occlusion right internal carotid artery which has been described previously. Small caliber right middle cerebral arterial supply. Partial collateral flow primarily from the anter ior communicating vascular supply. Very small caliber distal right middle cerebral arterial distribution. Posterior circulation appears unremarkable. There is high-grade stenosis of the distal left vertebral artery. Left middle cerebral is unremarkable. 50% stenosis origin left middle cerebral artery. IMPRESSION: 1. Occluded right internal carotid artery which has been described previously. 2. Superimposed high degree of stenotic change mid to distal right middle cerebral artery which demon strates collateral filling via the anterior communicator. 3. High-grade stenosis distal aspect left posterior cerebral artery. 4. 50% stenosis origin left middle cerebral artery. The above report was generated using voice recognition software. It may contain grammatical, syntax or spelling errors. Electronically signed by: Jae Saravia M.D. 05/01/2019 10:10 AM
--- NOTE | 2019-05-01 10:26 | Magnetic Resonance Report ---
Brain MRI WITHOUT CONTRAST HISTORY: Abnormal head CT. Left-sided weakness. TECHNIQUE: Multiplanar multisequence MRI of the brain was performed without the use of contrast. COMPARISON STUDY: Head CT 04/30/2019. FINDINGS: Best seen on image 16 of 40 for the DWI sequences there is a punctate focus of restricted d iffusion within the periventricular white matter of the right parietal lobe. This is consistent with an acute lacunar infarct. The midline structures are intact. Chronic occlusion of the right internal carotid artery is again noted. The paranasal sinuses and mastoid air cells are clear. There is no mas s, hematoma, midline shift. Old lacunar infarct within the right caudate head and old small right occ ipital lobe infarct are again noted. Scattered T2 hyperintense foci within the white matter are nonsp ecific but suggestive of microvascular ischemic change. IMPRESSION: A punctate acute lacunar infarct within the periventricular white matter of the right parietal lobe. Electronically signed by: Krunal Tavarez M.D. 05/01/2019 10:25 AM
--- NOTE | 2019-05-01 12:28 | Pharmacy Report ---
Glycemic Control Consultation - Date of Service May 01, 2019 - Scope Scope: Glycemic Pharmacist consulted by Dr Amezcua on 05/01 for glycemic control and to write orders per [facility] inpatient glycemic control protocol - Objective Weight: 110.2 kg Accuchecks BSG (last 24hrs): 04/30/19 04/30/19 04/30/19 18:42 19:04 21:17 Glucose 515 H* POC Glucose 415 H* POC Glucose (other) 510 H* 04/30/19 05/01/19 05/01/19 22:20 01:31 03:15 Glucose 432 H* POC Glucose 458 H* 424 H* POC Glucose (other) 05/01/19 05/01/19 05/01/19 03:59 04:02 05:19 Glucose 361 H* POC Glucose 352 H* 330 H* POC Glucose (other) 05/01/19 05/01/19 05/01/19 06:16 07:40 08:36 Glucose POC Glucose 298 H 231 H 236 H POC Glucose (other) 05/01/19 05/01/19 10:28 11:30 Glucose POC Glucose 239 H 191 H POC Glucose (other) Laboratory Data (last 24hrs): 04/30/19 04/30/19 04/30/19 18:42 18:50 22:20 Potassium 6.0 H 5.5 H Carbon Dioxide 27 27 Anion Gap 11.0 8.0 Creatinine 2.37 H 2.10 H Est Cr Clr Drug Dosing 45.6 51.4 Osmolality 333 H Beta-Hydroxybutyric Acd 04/30/19 05/01/19 23:07 03:59 Potassium 4.8 Carbon Dioxide 27 Anion Gap 9.0 Creatinine 1.70 H D Est Cr Clr Drug Dosing 63.4 Osmolality Beta-Hydroxybutyric Acd 1.33 HbA1c: Hemoglobin A1c 10.5 % (4.5-5.6) H 04/30/19 19:50 - Recent Pertinent Medications Outpatient Anti-diabetic Regimen: * Glargine 32 units QAM/QPM, metformin ER 1 gm bid * A1c = 10.5 % [04/30/19] Risk Factors for Insulin Resistance: * Diet: T2DM - Assessment & Plan Assessment & Plan: ASSESSMENT: * 53 year old with hyperglycemia, left arm weakness. MRI of brain with acute lacunar infarct. * PMHx significant for CHF, htn, hld, anemia, DM2 managed on insulin glargine and metformin at home * Started on insulin drip during admission and this morning continued - received home glargine 35 units last night * Ordered glargine 25 units x 1 for now to help with drip transition * Drip now d/c'ed at lunch time - AG 9.0 ; will start basal bolus dosing PLAN FOR INPATIENT GLYCEMIC CONTROL: * Basal insulin * Lantus 25 x 1 * Lantus per scale tonight: for BSG <120-give 15 units, BSG [id number] 20 unts, BSG >180-give 25 units * Bolus insulin * NovoLog per scale ACHS or Q6hrs while NPO * Goal Range: [id number]/dL - High 160 mg/dL * Correction Factor: 20 mg/dL/unit * Nutritional / Prandial insulin per carb ratio of 1 unit per 7 grams CHO consumed * Please note that the plan above was derived based on current level of insulin resistance and hospital stress. These recommendations are appropriate for inpatient admission only. Plan of care upon discharge will need to be reassessed to avoid potential outpatient hypo/hyperglycemia. Thank you.
--- NOTE | 2019-05-01 13:34 | Neurology Consultation ---
Date of Consultation May 01, 2019 Assessment & Plan (1) Left arm weakness: 1. MRI brain- punctate acute lacunar infarct right parietal lobe 2. TTE- pending 3. carotid doppler- pending 4. continue aspirin 81 mg BID per cardiology (post stent placement) plavix 75 mg added- will need input from cards for further treatment options 5. optimize DM, HLD LDL <70 6. would avoid hypotension liberalize blood pressure 140-160 systolic and 80-100 diastolic 7. need follow up with wound clinic as outpatient 8. PT/OT speech for any discharge needs 9. PCP for medical management 10. smoking cessation discussed follow up 4-6 weeks with Zulma Lainez PAC schedule. Supervising Physician Co-Signing Physician Notes I have seen and discussed above patient with Dr Jac Meadows, neurology I have seen, interviewed and examined this man and discussed his case with Zulma Lainez PA-C. 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 At this point we are going to check the results of the echocardiogram to see if there may have been a source of embolization there following his myocardial infarction several years ago perhaps with a laminated mural thrombus or significant degree of left ventricular dysfunction Unless we see something of this type however I think adding Plavix to his 2 aspirins a day is melton and it may be a form of anticoagulation we would continue indefinitely. We will check back with him tomorrow after the echocardiographic study is done and after the duplex of the carotids has been done to confirm the presence of a continued occlusion on the right which I think is likely as recanalization of these atheromatous occlusions is distinctly unusual and quite rare Jac Meadows MD History of Present Illness Reason for Consultation: TIA/CVA Requesting Physician: Robel Amezcua MD Attending Physician: Robel Amezcua MD History of Present Illness Ovidio os a 53 year old male with a PMH chronic systolic heart failure secondary to ischemic cardiomyopathy (EF 40 to 44%, TTE 2016), pulmonary hypertension PVD, CRI (baseline creatinine 1.8 as 03/2019), chronic anemia, baseline hemoglobin of 12, ongoing tobacco abuse. Left AKA 06/2017. He had a transient left upper extremity weakness, which he describes as unable to control his arm. He was at a picnic and had cake. His BS was in the 500s and he received insulin IV. He states the LUE weakness lasted about 12 hours and is completely resolved now. He has a prosthetic and walks independently and has had no falls. denies CP, SOB, abdominal pain, one sided weakness, numbness tingling, N, V, vison changes (chronic right eye blind), bowel or bladder issues. He admits to smoking 1 ppd cigarettes. Allergies Allergy/AdvReac Type Severity Reaction Status Date / Time No Known Allergies Allergy Unverified 04/30/19 19:36 Home Medications Home Medications Medication Instructions Recorded Confirmed Type gabapentin [Neurontin] 800 mg PO BID #0 tab 10/03/14 04/30/19 History oxycodone-acetaminophen [Percocet] 1 tab PO TID PRN #0 tab 02/24/17 04/30/19 History amitriptyline 25 mg PO HS #0 tab 06/16/17 04/30/19 History aspirin 81 mg PO BID #0 06/16/17 04/30/19 History atorvastatin [Lipitor] 80 mg PO PM #0 tab 06/16/17 04/30/19 History carvedilol [Coreg] 3.125 mg PO BID #0 tab 06/16/17 04/30/19 History docusate sodium [Colace] 100 mg PO BID #0 cap 06/16/17 04/30/19 History furosemide [Lasix] 80 mg PO PM #0 tab 06/16/17 04/30/19 History metformin [Glucophage] 1,000 mg PO BID #0 tab 06/16/17 04/30/19 History nitroglycerin [Nitrostat] 0.4 mg SUBLINGUAL UD PRN #0 btl 06/16/17 04/30/19 History acetaminophen [Tylenol Extra 1,000 mg PO QID PRN 04/30/19 04/30/19 History Strength] duloxetine [Cymbalta] 60 mg PO QAM 04/30/19 04/30/19 History ibuprofen 400 mg PO Q6H PRN 04/30/19 04/30/19 History insulin glargine 32 unit SUBCUT AMPM 04/30/19 04/30/19 History Patient History Medical History Diabetes type 2, controlled Family History Other No pertinent family history in first degree relatives Social History Preferred Language: Jordanian Communication Ability: Effective Retail Advisor Required: No Beliefs That Will Affect Care: None marital status: Life Partner Current Living Situation: Alone Feels Safe at Home: Yes Safety Concerns: Feels Safe At This Time Smoking Status: Current some day smoker Tobacco Type: cigarettes ; Cigarettes Per Day: 20 ; Hx Alcohol Use: No Hx Substance Use: No Physical Exam Physical Exam: Physical Exam: Constitutional: appearance over nourished Ears, Nose, Mouth and Throat: mucous membranes moist, no injection and skin normal, eyes normal Cardiovascular: normal S-1 and S-2 and regular rate and rhythm Respiratory: course breath sounds with inspiratory wheezing Musculoskeletal: decreased distal pulses bilaterally Skin: neurocutaneous disease right LE with scabbing no drainage. 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 bilaterally hip flex right 5/5, plantar right 5/5 Results & Data Vital Signs (Past 12 Hours) Vital Signs Temp Pulse Pulse Pulse Resp BP Pulse Ox 05/01/19 11:23 88 05/01/19 10:56 36.6 C 83 17 123/71 94 05/01/19 07:52 36.5 C 81 17 115/68 96 05/01/19 05:55 37.1 C 86 16 116/75 93 05/01/19 04:00 36.7 C 82 18 165/84 H 92 05/01/19 01:37 36.7 C 91 H 16 112/70 92 05/01/19 01:33 92 H Laboratory Results Abnormal lab results 04/30/19 04/30/19 04/30/19 Range/Units 18:42 18:50 19:00 RBC (4.7-6.1) M/uL Hgb (14.0-18.0) g/dL POC Hgb (14.0-18.0) g/dl Hct (42-52) % POC Hct (42-52) % RDW Std Deviation (36.4-46.3) fL MPV (7.4-10.4) fL Immature Gran # (Auto) (0.00-0.02) K/uL Eos # (Auto) (0-0.5) K/uL POC Sodium (135-144) mEq/L Sodium 134 L (136-145) mmol/L POC Potassium (3.3-5.0) mEq/L Potassium 6.0 H (3.5-5.1) mmol/L POC Chloride (101-112) mEq/L Chloride 96 L (98-107) mmol/L POC Anion Gap (16-25) mmol/L POC BUN (7-18) mg/dl BUN 71 H (7-18) mg/dl Creatinine 2.37 H (0.6-1.4) mg/dl POC Creatinine (0.6-1.3) mg/dl BUN/Creatinine Ratio 29.9 H (10-20) Glucose 515 H* (70-99) mg/dl POC Glucose (70-99) POC Glucose (other) (70-99) mg/dl Hemoglobin A1c (4.5-5.6) % Osmolality 333 H (280-300) mOsm/kg POC Lactic Acid Walt 2.60 H (0.90-1.70) mmol/L Calcium 8.1 L (8.5-10.1) mg/dl POC Ioniz Calcium Obey (1.12-1.32) mmol/l AST 8 L (15-37) U/L Alkaline Phosphatase 158 H (45-117) U/L Albumin 3.0 L (3.4-5.0) gm/dl Albumin/Globulin Ratio 0.8 L (0.9-2) Triglycerides (0-150) mg/dl Cholesterol (0-200) mg/dl Urine Glucose (UA) (Negative) 04/30/19 04/30/19 04/30/19 Range/Units 19:04 19:50 19:50 RBC 3.95 L (4.7-6.1) M/uL Hgb 11.7 L (14.0-18.0) g/dL POC Hgb 12.6 L (14.0-18.0) g/dl Hct 35.9 L (42-52) % POC Hct 37 L (42-52) % RDW Std Deviation 46.5 H (36.4-46.3) fL MPV 11.4 H (7.4-10.4) fL Immature Gran # (Auto) 0.03 H (0.00-0.02) K/uL Eos # (Auto) (0-0.5) K/uL POC Sodium 131 L (135-144) mEq/L Sodium (136-145) mmol/L POC Potassium 6.1 H* (3.3-5.0) mEq/L Potassium (3.5-5.1) mmol/L POC Chloride 97 L (101-112) mEq/L Chloride (98-107) mmol/L POC Anion Gap 12.0 L (16-25) mmol/L POC BUN 65 H (7-18) mg/dl BUN (7-18) mg/dl Creatinine (0.6-1.4) mg/dl POC Creatinine 2.3 H (0.6-1.3) mg/dl BUN/Creatinine Ratio (10-20) Glucose (70-99) mg/dl POC Glucose (70-99) POC Glucose (other) 510 H* (70-99) mg/dl Hemoglobin A1c 10.5 H (4.5-5.6) % Osmolality (280-300) mOsm/kg POC Lactic Acid Walt (0.90-1.70) mmol/L Calcium (8.5-10.1) mg/dl POC Ioniz Calcium Obey 1.02 L (1.12-1.32) mmol/l AST (15-37) U/L Alkaline Phosphatase (45-117) U/L Albumin (3.4-5.0) gm/dl Albumin/Globulin Ratio (0.9-2) Triglycerides (0-150) mg/dl Cholesterol (0-200) mg/dl Urine Glucose (UA) (Negative) 04/30/19 04/30/19 05/01/19 Range/Units 21:17 22:20 01:31 RBC (4.7-6.1) M/uL Hgb (14.0-18.0) g/dL POC Hgb (14.0-18.0) g/dl Hct (42-52) % POC Hct (42-52) % RDW Std Deviation (36.4-46.3) fL MPV (7.4-10.4) fL Immature Gran # (Auto) (0.00-0.02) K/uL Eos # (Auto) (0-0.5) K/uL POC Sodium (135-144) mEq/L Sodium 134 L (136-145) mmol/L POC Potassium (3.3-5.0) mEq/L Potassium 5.5 H (3.5-5.1) mmol/L POC Chloride (101-112) mEq/L Chloride (98-107) mmol/L POC Anion Gap (16-25) mmol/L POC BUN (7-18) mg/dl BUN 72 H (7-18) mg/dl Creatinine 2.10 H (0.6-1.4) mg/dl POC Creatinine (0.6-1.3) mg/dl BUN/Creatinine Ratio 34.1 H (10-20) Glucose 432 H* (70-99) mg/dl POC Glucose 415 H* 458 H* (70-99) POC Glucose (other) (70-99) mg/dl Hemoglobin A1c (4.5-5.6) % Osmolality (280-300) mOsm/kg POC Lactic Acid Walt (0.90-1.70) mmol/L Calcium 7.5 L (8.5-10.1) mg/dl POC Ioniz Calcium Obey (1.12-1.32) mmol/l AST (15-37) U/L Alkaline Phosphatase (45-117) U/L Albumin (3.4-5.0) gm/dl Albumin/Globulin Ratio (0.9-2) Triglycerides (0-150) mg/dl Cholesterol (0-200) mg/dl Urine Glucose (UA) (Negative) 05/01/19 05/01/19 05/01/19 Range/Units 03:15 03:59 03:59 RBC 4.04 L (4.7-6.1) M/uL Hgb 12.0 L (14.0-18.0) g/dL POC Hgb (14.0-18.0) g/dl Hct 36.7 L (42-52) % POC Hct (42-52) % RDW Std Deviation (36.4-46.3) fL MPV 10.9 H (7.4-10.4) fL Immature Gran # (Auto) 0.04 H (0.00-0.02) K/uL Eos # (Auto) 0.61 H (0-0.5) K/uL POC Sodium (135-144) mEq/L Sodium (136-145) mmol/L POC Potassium (3.3-5.0) mEq/L Potassium (3.5-5.1) mmol/L POC Chloride (101-112) mEq/L Chloride (98-107) mmol/L POC Anion Gap (16-25) mmol/L POC BUN (7-18) mg/dl BUN 62 H (7-18) mg/dl Creatinine 1.70 H D (0.6-1.4) mg/dl POC Creatinine (0.6-1.3) mg/dl BUN/Creatinine Ratio 36.2 H (10-20) Glucose 361 H* (70-99) mg/dl POC Glucose 424 H* (70-99) POC Glucose (other) (70-99) mg/dl Hemoglobin A1c (4.5-5.6) % Osmolality (280-300) mOsm/kg POC Lactic Acid Walt (0.90-1.70) mmol/L Calcium 7.5 L (8.5-10.1) mg/dl POC Ioniz Calcium Obey (1.12-1.32) mmol/l AST (15-37) U/L Alkaline Phosphatase (45-117) U/L Albumin (3.4-5.0) gm/dl Albumin/Globulin Ratio (0.9-2) Triglycerides 1578 H (0-150) mg/dl Cholesterol 213 H (0-200) mg/dl Urine Glucose (UA) (Negative) 05/01/19 05/01/19 05/01/19 Range/Units 04:02 04:15 05:19 RBC (4.7-6.1) M/uL Hgb (14.0-18.0) g/dL POC Hgb (14.0-18.0) g/dl Hct (42-52) % POC Hct (42-52) % RDW Std Deviation (36.4-46.3) fL MPV (7.4-10.4) fL Immature Gran # (Auto) (0.00-0.02) K/uL Eos # (Auto) (0-0.5) K/uL POC Sodium (135-144) mEq/L Sodium (136-145) mmol/L POC Potassium (3.3-5.0) mEq/L Potassium (3.5-5.1) mmol/L POC Chloride (101-112) mEq/L Chloride (98-107) mmol/L POC Anion Gap (16-25) mmol/L POC BUN (7-18) mg/dl BUN (7-18) mg/dl Creatinine (0.6-1.4) mg/dl POC Creatinine (0.6-1.3) mg/dl BUN/Creatinine Ratio (10-20) Glucose (70-99) mg/dl POC Glucose 352 H* 330 H* (70-99) POC Glucose (other) (70-99) mg/dl Hemoglobin A1c (4.5-5.6) % Osmolality (280-300) mOsm/kg POC Lactic Acid Walt (0.90-1.70) mmol/L Calcium (8.5-10.1) mg/dl POC Ioniz Calcium Obey (1.12-1.32) mmol/l AST (15-37) U/L Alkaline Phosphatase (45-117) U/L Albumin (3.4-5.0) gm/dl Albumin/Globulin Ratio (0.9-2) Triglycerides (0-150) mg/dl Cholesterol (0-200) mg/dl Urine Glucose (UA) 3+ H (Negative) 05/01/19 05/01/19 05/01/19 Range/Units 06:16 07:40 08:36 RBC (4.7-6.1) M/uL Hgb (14.0-18.0) g/dL POC Hgb (14.0-18.0) g/dl Hct (42-52) % POC Hct (42-52) % RDW Std Deviation (36.4-46.3) fL MPV (7.4-10.4) fL Immature Gran # (Auto) (0.00-0.02) K/uL Eos # (Auto) (0-0.5) K/uL POC Sodium (135-144) mEq/L Sodium (136-145) mmol/L POC Potassium (3.3-5.0) mEq/L Potassium (3.5-5.1) mmol/L POC Chloride (101-112) mEq/L Chloride (98-107) mmol/L POC Anion Gap (16-25) mmol/L POC BUN (7-18) mg/dl BUN (7-18) mg/dl Creatinine (0.6-1.4) mg/dl POC Creatinine (0.6-1.3) mg/dl BUN/Creatinine Ratio (10-20) Glucose (70-99) mg/dl POC Glucose 298 H 231 H 236 H (70-99) POC Glucose (other) (70-99) mg/dl Hemoglobin A1c (4.5-5.6) % Osmolality (280-300) mOsm/kg POC Lactic Acid Walt (0.90-1.70) mmol/L Calcium (8.5-10.1) mg/dl POC Ioniz Calcium Obey (1.12-1.32) mmol/l AST (15-37) U/L Alkaline Phosphatase (45-117) U/L Albumin (3.4-5.0) gm/dl Albumin/Globulin Ratio (0.9-2) Triglycerides (0-150) mg/dl Cholesterol (0-200) mg/dl Urine Glucose (UA) (Negative) 05/01/19 05/01/19 05/01/19 Range/Units 10:28 11:30 12:36 RBC (4.7-6.1) M/uL Hgb (14.0-18.0) g/dL POC Hgb (14.0-18.0) g/dl Hct (42-52) % POC Hct (42-52) % RDW Std Deviation (36.4-46.3) fL MPV (7.4-10.4) fL Immature Gran # (Auto) (0.00-0.02) K/uL Eos # (Auto) (0-0.5) K/uL POC Sodium (135-144) mEq/L Sodium (136-145) mmol/L POC Potassium (3.3-5.0) mEq/L Potassium (3.5-5.1) mmol/L POC Chloride (101-112) mEq/L Chloride (98-107) mmol/L POC Anion Gap (16-25) mmol/L POC BUN (7-18) mg/dl BUN (7-18) mg/dl Creatinine (0.6-1.4) mg/dl POC Creatinine (0.6-1.3) mg/dl BUN/Creatinine Ratio (10-20) Glucose (70-99) mg/dl POC Glucose 239 H 191 H 137 H (70-99) POC Glucose (other) (70-99) mg/dl Hemoglobin A1c (4.5-5.6) % Osmolality (280-300) mOsm/kg POC Lactic Acid Walt (0.90-1.70) mmol/L Calcium (8.5-10.1) mg/dl POC Ioniz Calcium Obey (1.12-1.32) mmol/l AST (15-37) U/L Alkaline Phosphatase (45-117) U/L Albumin (3.4-5.0) gm/dl Albumin/Globulin Ratio (0.9-2) Triglycerides (0-150) mg/dl Cholesterol (0-200) mg/dl Urine Glucose (UA) (Negative) 05/01/19 05/01/19 Range/Units 13:00 13:23 RBC (4.7-6.1) M/uL Hgb (14.0-18.0) g/dL POC Hgb (14.0-18.0) g/dl Hct (42-52) % POC Hct (42-52) % RDW Std Deviation (36.4-46.3) fL MPV (7.4-10.4) fL Immature Gran # (Auto) (0.00-0.02) K/uL Eos # (Auto) (0-0.5) K/uL POC Sodium (135-144) mEq/L Sodium (136-145) mmol/L POC Potassium (3.3-5.0) mEq/L Potassium (3.5-5.1) mmol/L POC Chloride (101-112) mEq/L Chloride (98-107) mmol/L POC Anion Gap (16-25) mmol/L POC BUN (7-18) mg/dl BUN (7-18) mg/dl Creatinine (0.6-1.4) mg/dl POC Creatinine (0.6-1.3) mg/dl BUN/Creatinine Ratio (10-20) Glucose (70-99) mg/dl POC Glucose 115 H 111 H (70-99) POC Glucose (other) (70-99) mg/dl Hemoglobin A1c (4.5-5.6) % Osmolality (280-300) mOsm/kg POC Lactic Acid Walt (0.90-1.70) mmol/L Calcium (8.5-10.1) mg/dl POC Ioniz Calcium Obey (1.12-1.32) mmol/l AST (15-37) U/L Alkaline Phosphatase (45-117) U/L Albumin (3.4-5.0) gm/dl Albumin/Globulin Ratio (0.9-2) Triglycerides (0-150) mg/dl Cholesterol (0-200) mg/dl Urine Glucose (UA) (Negative) Diagnostic Findings CT head- No acute intracranial hemorrhage or mass effect. 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 An underlying mass is considered less likely however a follow-up nonemergent MRI of the brain with and without contrast is recommended. CXR- No acute cardiopulmonary findings. MRI brain- punctate acute lacunar infarct within the periventricular white matter of the right parietal lobe. MRA head-. Occluded right internal carotid artery which has been described previously. Superimposed high degree of stenotic change mid to distal right middle cerebral artery which demonstrates collateral filling via the anterior communicator. High-grade stenosis distal aspect left posterior cerebral artery. 50% stenosis origin left middle cerebral artery.
--- NOTE | 2019-05-01 16:01 | Ultrasound Report ---
US carotid doppler BI HISTORY: Mental status change stroke COMPARISON: None. TECHNIQUE: Real-time, grayscale, and color Doppler sonography of the carotid arteries was performed. Imaging reviewed in the transverse and longitudinal planes. All measurements were calculated based on NASCET criteria. FINDINGS: Antegrade flow is seen in the bilateral vertebral arteries. The brachial pressures are hemodynamically similar. Considerable plaque formation bilaterally. The peak systolic velocity within the right ICA is occluded. The peak systolic velocity within the left ICA is 126. The left systolic ratio is 1.8. IMPRESSION: 1. Occlusion right internal carotid artery. 2. Considerable plaque formation bilaterally. 3. Significant stenotic change of the external carotid arteries bilaterally. The above report was generated using voice recognition software. It may contain grammatical, syntax or spelling errors. Electronically signed by: Jae Saravia M.D. 05/01/2019 3:59 PM
[2019-05-01 16:21] LABS: BUN Creatinine Ratio 34.7 (10-20); Calcium 8.7 mg/dl (8.5-10.1); Creatinine Clr Calc Pharmacy 86.3 ml/min; Est GFR (African American) 75.7; Est GFR (Non-African American) 65.3; Potassium 4.8 mmol/L (3.5-5.1)
--- NOTE | 2019-05-01 20:49 | Nephrology Consultation ---
Date of Consultation May 01, 2019 Assessment & Plan (1) Acute kidney injury superimposed on CKD: Patient with DANE on CKD likely hemodynamically mediated in setting in setting of relative hypotension and NSAIDs. Improved with IV fluids. Cr now at baseline. Patient also on ibuprofen prn at home. Discussed need to avoid NSAIDs. No indication for HD -Stop IV fluids as patient has history of CHF. May have to resume lasix in 24- 48hrs -Daily BMP (2) Acute hyperkalemia: Due to DANE. Improved with iv fluids and insulin. Patient should be on a renal diet. Monitor K daily. History of Present Illness Reason for Consultation: DANE on CKD Requesting Physician: Zakiya Yost MD Attending Physician: Robel Amezcua MD History of Present Illness This is 53YoM who was admitted on 04/30 with left sided weakness found to have DANE on CKD. Medical history significant for chronic systolic heart failure secondary to ischemic cardiomyopathy as per records (EF 40 to 44%, TTE 2017), pulmonary hypertension as per records, hx PVD, CRI (baseline creatinine 1.8 as 03/2019), chronic anemia, baseline hemoglobin of 12, ongoing tobacco abuse. 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 He has been using ibuprofen every night for aches. On admission his cr was 2.1 and K was 6.1. Cr is better today after iv fluids. he denies SOB, vomiting or diarrhoea. Seen with Daughter and son at bedside. No urinary symptoms. he has right leg pain. Allergies Allergy/AdvReac Type Severity Reaction Status Date / Time No Known Allergies Allergy Unverified 04/30/19 19:36 Home Medications Home Medications Medication Instructions Recorded Confirmed Type gabapentin [Neurontin] 800 mg PO BID #0 tab 10/03/14 04/30/19 History oxycodone-acetaminophen [Percocet] 1 tab PO TID PRN #0 tab 02/24/17 04/30/19 History amitriptyline 25 mg PO HS #0 tab 06/16/17 04/30/19 History aspirin 81 mg PO BID #0 06/16/17 04/30/19 History atorvastatin [Lipitor] 80 mg PO PM #0 tab 06/16/17 04/30/19 History carvedilol [Coreg] 3.125 mg PO BID #0 tab 06/16/17 04/30/19 History docusate sodium [Colace] 100 mg PO BID #0 cap 06/16/17 04/30/19 History furosemide [Lasix] 80 mg PO PM #0 tab 06/16/17 04/30/19 History metformin [Glucophage] 1,000 mg PO BID #0 tab 06/16/17 04/30/19 History nitroglycerin [Nitrostat] 0.4 mg SUBLINGUAL UD PRN #0 btl 06/16/17 04/30/19 History acetaminophen [Tylenol Extra 1,000 mg PO QID PRN 04/30/19 04/30/19 History Strength] duloxetine [Cymbalta] 60 mg PO QAM 04/30/19 04/30/19 History ibuprofen 400 mg PO Q6H PRN 04/30/19 04/30/19 History insulin glargine 32 unit SUBCUT AMPM 04/30/19 04/30/19 History Patient History Medical History Diabetes type 2, controlled Family History Other No pertinent family history in first degree relatives Social History Preferred Language: Mauritian Communication Ability: Effective Refrigeration Service Inspector Required: No Beliefs That Will Affect Care: None marital status: Life Partner Current Living Situation: Alone Feels Safe at Home: Yes Safety Concerns: Feels Safe At This Time Smoking Status: Current some day smoker Tobacco Type: cigarettes ; Cigarettes Per Day: 20 ; Hx Alcohol Use: No Hx Substance Use: No Review of Systems Review of Systems: All systems reviewed & are unremarkable except as noted in HPI & below Physical Exam Physical Exam: General exam: Appears comfortable, no acute distress HEENT: Pupils are equal and reactive to light Neck: No JVD, neck is supple trachea is midline Respiratory system: Clear breath sounds bilaterally. Gastrointestinal: Abdomen is soft, non distended, non tender, bowel sounds are present CVS: Regular rate and rhythm. No murmurs, rubs or gallops Musculoskeletal: No joint or muscle tenderness Extremities: left AKA, no edema, right leg ulcers and tenderness. warm Neuro: Oriented, no tremors, no focal neurological deficits Skin: No rashes Results & Data Vital Signs (Past 12 Hours) Vital Signs Temp Pulse Pulse Resp BP Pulse Ox 05/01/19 18:57 36.6 C 80 17 136/83 95 05/01/19 11:23 88 05/01/19 10:56 36.6 C 83 17 123/71 94 Laboratory Results Laboratory Results - last 24 hr 04/30/19 04/30/19 04/30/19 18:50 19:50 21:17 WBC RBC Hgb Hct MCV MCH MCHC RDW Std Deviation RDW Coeff of Taisha Plt Count MPV Immature Gran % (Auto) Neut % (Auto) Lymph % (Auto) [place] % (Auto) Eos % (Auto) Baso % (Auto) Immature Gran # (Auto) Neut # (Auto) Lymph # (Auto) [place] # (Auto) Eos # (Auto) Baso # (Auto) VBG pH VBG pCO2 VBG pO2 VBG HCO3 VBG O2 Saturation VBG Base Excess Barometric Pressure Sodium Potassium Chloride Carbon Dioxide Anion Gap BUN Creatinine Est Cr Clr Drug Dosing Est GFR ( Amer) Est GFR (Non-Af Amer) BUN/Creatinine Ratio Glucose POC Glucose 415 H* Estimat Average Glucose 255 Hemoglobin A1c 10.5 H Osmolality 333 H Lactate Calcium Ammonia Total Creatine Kinase Triglycerides Cholesterol LDL Cholesterol, Calc VLDL Cholesterol, Calc HDL Cholesterol Cholesterol/HDL Ratio Beta-Hydroxybutyric Acd TSH Specimen Hemolysis Urine Color Urine Appearance Urine pH Ur Specific [place] Urine Protein Urine Glucose (UA) Urine Ketones Urine Blood Urine Nitrite Urine Bilirubin Urine Urobilinogen Ur Leukocyte Esterase Urine Opiates Screen Ur Methadone, Qual Urine Barbiturates Ur Phencyclidine (PCP) U Amphetamin/Meth Scrn MDMA (Ecstasy) Screen U Benzodiazepines Scrn Ur Cocaine Metabolite U Marijuana (THC) Screen Blood Type Antibody Screen 04/30/19 04/30/19 04/30/19 22:20 22:20 22:20 WBC RBC Hgb Hct MCV MCH MCHC RDW Std Deviation RDW Coeff of Taisha Plt Count MPV Immature Gran % (Auto) Neut % (Auto) Lymph % (Auto) [place] % (Auto) Eos % (Auto) Baso % (Auto) Immature Gran # (Auto) Neut # (Auto) Lymph # (Auto) [place] # (Auto) Eos # (Auto) Baso # (Auto) VBG pH VBG pCO2 VBG pO2 VBG HCO3 VBG O2 Saturation VBG Base Excess Barometric Pressure Sodium 134 L Potassium 5.5 H Chloride 99 Carbon Dioxide 27 Anion Gap 8.0 BUN 72 H Creatinine 2.10 H Est Cr Clr Drug Dosing 51.4 Est GFR ( Amer) 40.4 Est GFR (Non-Af Amer) 34.9 BUN/Creatinine Ratio 34.1 H Glucose 432 H* POC Glucose Estimat Average Glucose Hemoglobin A1c Osmolality Lactate Calcium 7.5 L Ammonia Total Creatine Kinase 109 Triglycerides Cholesterol LDL Cholesterol, Calc VLDL Cholesterol, Calc HDL Cholesterol Cholesterol/HDL Ratio Beta-Hydroxybutyric Acd TSH 1.300 Specimen Hemolysis Urine Color Urine Appearance Urine pH Ur Specific [place] Urine Protein Urine Glucose (UA) Urine Ketones Urine Blood Urine Nitrite Urine Bilirubin Urine Urobilinogen Ur Leukocyte Esterase Urine Opiates Screen Ur Methadone, Qual Urine Barbiturates Ur Phencyclidine (PCP) U Amphetamin/Meth Scrn MDMA (Ecstasy) Screen U Benzodiazepines Scrn Ur Cocaine Metabolite U Marijuana (THC) Screen Blood Type Antibody Screen 04/30/19 04/30/19 04/30/19 22:20 23:07 23:07 WBC RBC Hgb Hct MCV MCH MCHC RDW Std Deviation RDW Coeff of Taisha Plt Count MPV Immature Gran % (Auto) Neut % (Auto) Lymph % (Auto) [place] % (Auto) Eos % (Auto) Baso % (Auto) Immature Gran # (Auto) Neut # (Auto) Lymph # (Auto) [place] # (Auto) Eos # (Auto) Baso # (Auto) VBG pH 7.37 VBG pCO2 48 VBG pO2 51 VBG HCO3 27 VBG O2 Saturation 83.3 VBG Base Excess 1.4 Barometric Pressure 734.9 Sodium Potassium Chloride Carbon Dioxide Anion Gap BUN Creatinine Est Cr Clr Drug Dosing Est GFR ( Amer) Est GFR (Non-Af Amer) BUN/Creatinine Ratio Glucose POC Glucose Estimat Average Glucose Hemoglobin A1c Osmolality Lactate Calcium Ammonia Total Creatine Kinase Triglycerides Cholesterol LDL Cholesterol, Calc VLDL Cholesterol, Calc HDL Cholesterol Cholesterol/HDL Ratio Beta-Hydroxybutyric Acd 1.33 TSH Specimen Hemolysis Urine Color Urine Appearance Urine pH Ur Specific [place] Urine Protein Urine Glucose (UA) Urine Ketones Urine Blood Urine Nitrite Urine Bilirubin Urine Urobilinogen Ur Leukocyte Esterase Urine Opiates Screen Ur Methadone, Qual Urine Barbiturates Ur Phencyclidine (PCP) U Amphetamin/Meth Scrn MDMA (Ecstasy) Screen U Benzodiazepines Scrn Ur Cocaine Metabolite U Marijuana (THC) Screen Blood Type O Positive Antibody Screen NEGATIVE 04/30/19 05/01/19 05/01/19 23:07 01:31 03:15 WBC RBC Hgb Hct MCV MCH MCHC RDW Std Deviation RDW Coeff of Taisha Plt Count MPV Immature Gran % (Auto) Neut % (Auto) Lymph % (Auto) [place] % (Auto) Eos % (Auto) Baso % (Auto) Immature Gran # (Auto) Neut # (Auto) Lymph # (Auto) [place] # (Auto) Eos # (Auto) Baso # (Auto) VBG pH VBG pCO2 VBG pO2 VBG HCO3 VBG O2 Saturation VBG Base Excess Barometric Pressure Sodium Potassium Chloride Carbon Dioxide Anion Gap BUN Creatinine Est Cr Clr Drug Dosing Est GFR ( Amer) Est GFR (Non-Af Amer) BUN/Creatinine Ratio Glucose POC Glucose 458 H* 424 H* Estimat Average Glucose Hemoglobin A1c Osmolality Lactate Calcium Ammonia Total Creatine Kinase Triglycerides Cholesterol LDL Cholesterol, Calc VLDL Cholesterol, Calc HDL Cholesterol Cholesterol/HDL Ratio Beta-Hydroxybutyric Acd TSH Specimen Hemolysis Urine Color Urine Appearance Urine pH Ur Specific [place] Urine Protein Urine Glucose (UA) Urine Ketones Urine Blood Urine Nitrite Urine Bilirubin Urine Urobilinogen Ur Leukocyte Esterase Urine Opiates Screen Ur Methadone, Qual Urine Barbiturates Ur Phencyclidine (PCP) U Amphetamin/Meth Scrn MDMA (Ecstasy) Screen U Benzodiazepines Scrn Ur Cocaine Metabolite U Marijuana (THC) Screen Blood Type Antibody Screen 05/01/19 05/01/19 05/01/19 03:59 03:59 03:59 WBC 9.72 RBC 4.04 L Hgb 12.0 L Hct 36.7 L MCV 90.8 MCH 29.7 MCHC 32.7 RDW Std Deviation 45.9 RDW Coeff of Taisha 13.9 Plt Count 246 MPV 10.9 H Immature Gran % (Auto) 0.4 Neut % (Auto) 59.0 Lymph % (Auto) 29.5 [place] % (Auto) 4.5 Eos % (Auto) 6.3 Baso % (Auto) 0.3 Immature Gran # (Auto) 0.04 H Neut # (Auto) 5.73 Lymph # (Auto) 2.87 [place] # (Auto) 0.44 Eos # (Auto) 0.61 H Baso # (Auto) 0.03 VBG pH VBG pCO2 VBG pO2 VBG HCO3 VBG O2 Saturation VBG Base Excess Barometric Pressure Sodium 137 Potassium 4.8 Chloride 101 Carbon Dioxide 27 Anion Gap 9.0 BUN 62 H Creatinine 1.70 H D Est Cr Clr Drug Dosing 63.4 Est GFR ( Amer) 52.2 Est GFR (Non-Af Amer) 45.0 BUN/Creatinine Ratio 36.2 H Glucose 361 H* POC Glucose Estimat Average Glucose Hemoglobin A1c Osmolality Lactate Calcium 7.5 L Ammonia Total Creatine Kinase Triglycerides 1578 H Cholesterol 213 H LDL Cholesterol, Calc VLDL Cholesterol, Calc HDL Cholesterol 23 Cholesterol/HDL Ratio 9 Beta-Hydroxybutyric Acd TSH Specimen Hemolysis Urine Color Urine Appearance Urine pH Ur Specific [place] Urine Protein Urine Glucose (UA) Urine Ketones Urine Blood Urine Nitrite Urine Bilirubin Urine Urobilinogen Ur Leukocyte Esterase Urine Opiates Screen Ur Methadone, Qual Urine Barbiturates Ur Phencyclidine (PCP) U Amphetamin/Meth Scrn MDMA (Ecstasy) Screen U Benzodiazepines Scrn Ur Cocaine Metabolite U Marijuana (THC) Screen Blood Type Antibody Screen 05/01/19 05/01/19 05/01/19 04:02 04:15 04:15 WBC RBC Hgb Hct MCV MCH MCHC RDW Std Deviation RDW Coeff of Taisha Plt Count MPV Immature Gran % (Auto) Neut % (Auto) Lymph % (Auto) [place] % (Auto) Eos % (Auto) Baso % (Auto) Immature Gran # (Auto) Neut # (Auto) Lymph # (Auto) [place] # (Auto) Eos # (Auto) Baso # (Auto) VBG pH VBG pCO2 VBG pO2 VBG HCO3 VBG O2 Saturation VBG Base Excess Barometric Pressure Sodium Potassium Chloride Carbon Dioxide Anion Gap BUN Creatinine Est Cr Clr Drug Dosing Est GFR ( Amer) Est GFR (Non-Af Amer) BUN/Creatinine Ratio Glucose POC Glucose 352 H* Estimat Average Glucose Hemoglobin A1c Osmolality Lactate Calcium Ammonia Total Creatine Kinase Triglycerides Cholesterol LDL Cholesterol, Calc VLDL Cholesterol, Calc HDL Cholesterol Cholesterol/HDL Ratio Beta-Hydroxybutyric Acd TSH Specimen Hemolysis Urine Color Yellow Urine Appearance Clear Urine pH 6.0 Ur Specific [place] 1.016 Urine Protein Negative Urine Glucose (UA) 3+ H Urine Ketones Negative Urine Blood Negative Urine Nitrite Negative Urine Bilirubin Negative Urine Urobilinogen Negative Ur Leukocyte Esterase Negative Urine Opiates Screen Neg Ur Methadone, Qual Neg Urine Barbiturates Neg Ur Phencyclidine (PCP) Neg U Amphetamin/Meth Scrn Neg MDMA (Ecstasy) Screen Neg U Benzodiazepines Scrn Neg Ur Cocaine Metabolite Neg U Marijuana (THC) Screen Neg Blood Type Antibody Screen 05/01/19 05/01/19 05/01/19 05:19 06:16 07:40 WBC RBC Hgb Hct MCV MCH MCHC RDW Std Deviation RDW Coeff of Taisha Plt Count MPV Immature Gran % (Auto) Neut % (Auto) Lymph % (Auto) [place] % (Auto) Eos % (Auto) Baso % (Auto) Immature Gran # (Auto) Neut # (Auto) Lymph # (Auto) [place] # (Auto) Eos # (Auto) Baso # (Auto) VBG pH VBG pCO2 VBG pO2 VBG HCO3 VBG O2 Saturation VBG Base Excess Barometric Pressure Sodium Potassium Chloride Carbon Dioxide Anion Gap BUN Creatinine Est Cr Clr Drug Dosing Est GFR ( Amer) Est GFR (Non-Af Amer) BUN/Creatinine Ratio Glucose POC Glucose 330 H* 298 H 231 H Estimat Average Glucose Hemoglobin A1c Osmolality Lactate Calcium Ammonia Total Creatine Kinase Triglycerides Cholesterol LDL Cholesterol, Calc VLDL Cholesterol, Calc HDL Cholesterol Cholesterol/HDL Ratio Beta-Hydroxybutyric Acd TSH Specimen Hemolysis Urine Color Urine Appearance Urine pH Ur Specific [place] Urine Protein Urine Glucose (UA) Urine Ketones Urine Blood Urine Nitrite Urine Bilirubin Urine Urobilinogen Ur Leukocyte Esterase Urine Opiates Screen Ur Methadone, Qual Urine Barbiturates Ur Phencyclidine (PCP) U Amphetamin/Meth Scrn MDMA (Ecstasy) Screen U Benzodiazepines Scrn Ur Cocaine Metabolite U Marijuana (THC) Screen Blood Type Antibody Screen 05/01/19 05/01/19 05/01/19 08:36 10:28 11:30 WBC RBC Hgb Hct MCV MCH MCHC RDW Std Deviation RDW Coeff of Taisha Plt Count MPV Immature Gran % (Auto) Neut % (Auto) Lymph % (Auto) [place] % (Auto) Eos % (Auto) Baso % (Auto) Immature Gran # (Auto) Neut # (Auto) Lymph # (Auto) [place] # (Auto) Eos # (Auto) Baso # (Auto) VBG pH VBG pCO2 VBG pO2 VBG HCO3 VBG O2 Saturation VBG Base Excess Barometric Pressure Sodium Potassium Chloride Carbon Dioxide Anion Gap BUN Creatinine Est Cr Clr Drug Dosing Est GFR ( Amer) Est GFR (Non-Af Amer) BUN/Creatinine Ratio Glucose POC Glucose 236 H 239 H 191 H Estimat Average Glucose Hemoglobin A1c Osmolality Lactate Calcium Ammonia Total Creatine Kinase Triglycerides Cholesterol LDL Cholesterol, Calc VLDL Cholesterol, Calc HDL Cholesterol Cholesterol/HDL Ratio Beta-Hydroxybutyric Acd TSH Specimen Hemolysis Urine Color Urine Appearance Urine pH Ur Specific [place] Urine Protein Urine Glucose (UA) Urine Ketones Urine Blood Urine Nitrite Urine Bilirubin Urine Urobilinogen Ur Leukocyte Esterase Urine Opiates Screen Ur Methadone, Qual Urine Barbiturates Ur Phencyclidine (PCP) U Amphetamin/Meth Scrn MDMA (Ecstasy) Screen U Benzodiazepines Scrn Ur Cocaine Metabolite U Marijuana (THC) Screen Blood Type Antibody Screen 05/01/19 05/01/19 05/01/19 12:36 13:00 13:23 WBC RBC Hgb Hct MCV MCH MCHC RDW Std Deviation RDW Coeff of Taisha Plt Count MPV Immature Gran % (Auto) Neut % (Auto) Lymph % (Auto) [place] % (Auto) Eos % (Auto) Baso % (Auto) Immature Gran # (Auto) Neut # (Auto) Lymph # (Auto) [place] # (Auto) Eos # (Auto) Baso # (Auto) VBG pH VBG pCO2 VBG pO2 VBG HCO3 VBG O2 Saturation VBG Base Excess Barometric Pressure Sodium Potassium Chloride Carbon Dioxide Anion Gap BUN Creatinine Est Cr Clr Drug Dosing Est GFR ( Amer) Est GFR (Non-Af Amer) BUN/Creatinine Ratio Glucose POC Glucose 137 H 115 H 111 H Estimat Average Glucose Hemoglobin A1c Osmolality Lactate Calcium Ammonia Total Creatine Kinase Triglycerides Cholesterol LDL Cholesterol, Calc VLDL Cholesterol, Calc HDL Cholesterol Cholesterol/HDL Ratio Beta-Hydroxybutyric Acd TSH Specimen Hemolysis Urine Color Urine Appearance Urine pH Ur Specific [place] Urine Protein Urine Glucose (UA) Urine Ketones Urine Blood Urine Nitrite Urine Bilirubin Urine Urobilinogen Ur Leukocyte Esterase Urine Opiates Screen Ur Methadone, Qual Urine Barbiturates Ur Phencyclidine (PCP) U Amphetamin/Meth Scrn MDMA (Ecstasy) Screen U Benzodiazepines Scrn Ur Cocaine Metabolite U Marijuana (THC) Screen Blood Type Antibody Screen 05/01/19 05/01/19 05/01/19 15:42 16:26 20:18 WBC RBC Hgb Hct MCV MCH MCHC RDW Std Deviation RDW Coeff of Taisha Plt Count MPV Immature Gran % (Auto) Neut % (Auto) Lymph % (Auto) [place] % (Auto) Eos % (Auto) Baso % (Auto) Immature Gran # (Auto) Neut # (Auto) Lymph # (Auto) [place] # (Auto) Eos # (Auto) Baso # (Auto) VBG pH VBG pCO2 VBG pO2 VBG HCO3 VBG O2 Saturation VBG Base Excess Barometric Pressure Sodium 143 Potassium 4.8 Chloride 108 H Carbon Dioxide 28 Anion Gap 6.0 BUN 43 H Creatinine 1.25 D Est Cr Clr Drug Dosing 86.3 Est GFR ( Amer) 75.7 Est GFR (Non-Af Amer) 65.3 BUN/Creatinine Ratio 34.7 H Glucose 116 H POC Glucose 116 H 202 H Estimat Average Glucose Hemoglobin A1c Osmolality Lactate Calcium 8.7 D Ammonia Total Creatine Kinase Triglycerides Cholesterol LDL Cholesterol, Calc VLDL Cholesterol, Calc HDL Cholesterol Cholesterol/HDL Ratio Beta-Hydroxybutyric Acd TSH Specimen Hemolysis Urine Color Urine Appearance Urine pH Ur Specific [place] Urine Protein Urine Glucose (UA) Urine Ketones Urine Blood Urine Nitrite Urine Bilirubin Urine Urobilinogen Ur Leukocyte Esterase Urine Opiates Screen Ur Methadone, Qual Urine Barbiturates Ur Phencyclidine (PCP) U Amphetamin/Meth Scrn MDMA (Ecstasy) Screen U Benzodiazepines Scrn Ur Cocaine Metabolite U Marijuana (THC) Screen Blood Type Antibody Screen
[2019-05-01] MEDS ORDERED: ATORVASTATIN 40 MG TAB PO SCH (21:00)
[2019-05-01] MEDS ORDERED: AMITRIPTYLINE HCL 25 MG TAB PO SCH (21:00)
[2019-05-02] MEDS: INSULIN ASPART 100 UNITS/ML 3 ML PEN SC SCH ×4 (00:05→12:14)
[2019-05-02] MEDS: HEPARIN SOD 5,000 UNIT/0.5 ML VIAL SQ SCH ×2 (05:31→13:38)
[2019-05-02 08:09] LABS: BUN Creatinine Ratio 21.6 (10-20); Calcium 8.9 mg/dl (8.5-10.1); Creatinine Clr Calc Pharmacy 98.7 ml/min; Est GFR (African American) 90.3; Est GFR (Non-African American) 77.9; Potassium 5.3 mmol/L (3.5-5.1)
[2019-05-02] MEDS ORDERED: INSULIN GLARGINE SOLOSTAR 100 UNITS/ML 3 ML PEN SC ONE (08:30)
[2019-05-02] MEDS: ASPIRIN 81 MG ECTAB PO SCH (08:35)
[2019-05-02] MEDS: DULOXETINE HCL 60 MG CAP PO SCH (08:35)
[2019-05-02] MEDS: carvediloL 3.125 MG TAB PO SCH (08:35)
[2019-05-02] MEDS: DOCUSATE SODIUM 100 MG CAP PO SCH (08:35)
[2019-05-02] MEDS: GABAPENTIN 100 MG CAP PO SCH (08:36)
[2019-05-02] MEDS: CLOPIDOGREL BISULFATE 75 MG TAB PO SCH (08:36)
--- NOTE | 2019-05-02 13:15 | Pharmacy Report ---
Pharmacy Glycemic Short Note 2 - Date of Service May 02, 2019 - Glycemic Short BSG Results (Last 24 hours): 05/01/19 05/01/19 05/01/19 13:00 13:23 15:42 Glucose 116 H POC Glucose 115 H 111 H 05/01/19 05/01/19 05/01/19 16:26 20:18 23:55 Glucose POC Glucose 116 H 202 H 191 H 05/02/19 05/02/19 05/02/19 04:30 07:10 07:39 Glucose 234 H POC Glucose 196 H 247 H 05/02/19 11:29 Glucose POC Glucose 230 H OUTPATIENT ANTIDIABETIC REGIMEN: * Insulin glargine 32 units BID * Metformin 1000 mg PO BID ASSESSMENT: * 53 year old with hyperglycemia, left arm weakness. MRI of brain with acute lacunar infarct. * PMHx significant for CHF, htn, hld, anemia, DM2 managed on insulin glargine and metformin at home * Patient transitioned from insulin drip with SC insulin basal/bolus yesterday afternoon * Patient received 104 units of SC insulin yesterday + approximately 30 units from the insulin gtt PLAN FOR INPATIENT GLYCEMIC CONTROL: * Gave 39 units of Lantus this AM (representing patient's home dose of 32 units +7 units since patient only received 25 units of Lantus last evening) * Basal insulin * Lantus 32 units SQ BID starting this evening (05/02) * Bolus insulin * NovoLog per scale ACHS or Q6hrs while NPO * Goal Range: Low 120 mg/dL - High 160 mg/dL * Correction Factor: 15 mg/dL/unit * Nutritional / Prandial insulin per carb ratio of 1 unit per 4 grams CHO consumed * CF and CR based on basal estimate of 64 units per day PLAN FOR DISCHARGE: * Continue metformin 1000 mg PO BIDM * Basal/bolus dosing strategy will most likely be required upon discharge given HbA1c of 10.5% * Based on his insulin needs while inpatient, could consider Novolog 15 units TID with meals in addition to home Lantus of 32 units SC BID * OR could consider change to pre-mixed insulin 70/30: 65 units in the morning with breakfast and 35 units in the evening with dinner * Due to history of cardiovascular disease; would recommend discussing the addition of GLP-1 agonist or SGLT-2 inhibitor with PCP based on insurance coverage
--- NOTE | 2019-05-02 14:23 | Hospitalist Progress Note ---
Date of Service May 02, 2019 Assessment & Plan (1) Left arm weakness: Acute CVA, right parietal region CT head: No acute CVA, age indeterminate 1 cm infarct in the right caudate nucleus, old right cerebellar infarct Brain MRI: Acute CVA right parietal region-punctate acute lacunar infarct in the periventricular white matter of the right parietal lobe Head MRA: Occluded right internal carotid artery Echo: Intra-atrial septum intact, no evidence for an atrial septal defect, grossly normal valvular structure and function, left ventricular ejection fraction is grossly normal Carotid Doppler study: Occlusion of the right internal carotid artery, considerable plaque formation bilaterally, significant stenotic change of the external carotid arteries bilaterally Symptoms resolved Neurologist Dr. Meadows has been consulted Recommend to add Plavix 75 mg p.o. daily to usual aspirin Continue strict risk factor modification Follow-up with neurologist Dr. Meadows in 4 to 6 weeks Hyperglycemia, diabetes type 2 Usually on metformin , insulin glargine Admitted with blood sugar readings in the 500s A1c 10.5 Insulin drip started, glycemic control consulted Discharge plan: Discontinue insulin glargine Start insulin NPH 70/30: 65 units in the morning, 35 units at bedtime Titrate accordingly as an outpatient Continue usual metformin 1000 mg twice a Instructions given to record blood glucose readings and report to primary care physician for insulin titration Acute renal failure on CKD stage III Likely prerenal etiology Baseline creatinine 1.8 as of December 2018 Creatinine 2.3 on admission IV fluids given Improved to 1.08 Hydrometeorology Teacher service consulted Dr. Sahu Potassium 4.8 Repeat basic metabolic panel on follow-up with primary care physician next week Old CVA Cerebellar infarct noted on CAT scan Plavix added to aspirin History of features of heart failure, systolic type EF 40% Euvolemic resume Lasix Continue carvedilol Pulmonary hypertension Respiratory status stable Chronic right lower extremity wounds No changes as per patient No signs of active infection at this time Follows with [facility], planning for referral for second opinion as per patient, scheduled for for follow-up this months Strongly recommended to patient wound care service referral, despite extensive explanation, the patient has declined this referral, he understands and accepting the risk of infection, sepsis, worsening of the wound History of peripheral vascular disease Continue aspirin and atorvastatin DVT prophylaxis Heparin subcutaneous Disposition Discharge to home Follow-up with primary care physician next week May 08, 2019 at 1245 Follow-up with [facility] for chronic right leg wounds. Follow-up with neurologist Dr. Meadows in 4 weeks. Case discussed with patient and his in detail and at length, All questions answered, They are agreeable, understanding, comfortable with the plan of care Provided education on stroke symptoms Subjective ff up for acute CVA seen resting in bed, comfortable family at bedside states he feels fine overall left arm weakness has resolved, no other new focal neurologic deficit denies chest pain, dyspnea, palpitations, dizziness no other symptoms states he is ready and would like to be discharged today Review of Systems Review of Systems: All systems reviewed & are unremarkable except as noted in HPI & below Physical Exam Physical Exam: General- oriented x 3, not in distress, speaks in sentences with no effort or accessory muscle use Eyes- anicteric Neck- no JVD Lungs- clear breath sounds bilaterally, no rales/wheezes Heart- normal rate, regular rhythm; no murmurs Abdomen- normal bowel sounds, nondistended, soft, nontender Extremities- right lower ext: chronic wounds- no bleeding, discharge, no erythema/warmth/te nderness left lower ext: s/p amputation Neuro- alert, oriented x 3; no gross focal neurologic deficits Skin- warm & dry Results & Data Vital Signs (Past 12 Hours) Vital Signs Temp Pulse Pulse Resp BP BP Pulse Ox 05/02/19 14:09 131/81 05/02/19 11:18 36.7 C 74 18 168/89 H 97 05/02/19 08:33 90 130/84 05/02/19 07:16 71 05/02/19 06:50 36.7 C 73 18 151/88 H 98 05/02/19 03:59 36.8 C 79 18 159/90 H 96 05/02/19 03:30 79
--- NOTE | 2019-05-02 14:48 | Neurology Progress Note ---
Date of Service May 02, 2019 Assessment & Plan (1) Left arm weakness: 1. MRI brain- punctate acute lacunar infarct right parietal lobe 2. TTE- pending 3. carotid doppler- occlusion of right ICA, significant stenosis external carotid arteries bilaterally 4. continue aspirin 81 mg BID per cardiology (post stent placement) plavix 75 mg added- will need input from cards for further treatment options 5. optimize DM, HLD LDL <70 6. would avoid hypotension liberalize blood pressure 140-160 systolic and 80-100 diastolic 7. need follow up with wound clinic as outpatient 8. PT/OT speech for any discharge needs 9. PCP for medical management 10. smoking cessation discussed follow up 4-6 weeks with Zulma Lainez PAC schedule. Supervising Physician Co-Signing Physician Notes I have seen and discussed above patient with Dr Jac Meadows, neurology Mr. Sorto is back to his baseline and is ready for discharge in fact has officially been released from the hospital. I saw him today in the company of [employer] fiance and discussed his case with Zulma Lainez and have reviewed his echocardiographic study which somewhat surprisingly his largely normal and certainly shows no evidence for ischemic changes in the distribution of the anterior descending artery where he apparently had a an ischemic event several years ago and shows a good ejection fraction. 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 This would have to be cleared by cardiology and his primary care physician we will try to address this when we see him in follow-up in the next 4 weeks or so Jac Meadows MD Subjective Ovidio os a 53 year old male with a PMH chronic systolic heart failure secondary to ischemic cardiomyopathy (EF 40 to 44%, TTE 2017), pulmonary hypertension PVD, CRI (baseline creatinine 1.8 as 03/2019), chronic anemia, baseline hemoglobin of 12, ongoing tobacco abuse. Left AKA 06/2017. He had a transient left upper extremity weakness, which he describes as unable to control his arm. He was at a picnic and had cake. His BS was in the 500s and he received insulin IV. He states the LUE weakness lasted about 12 hours and is completely resolved now. He has a prosthetic and walks independently and has had no falls. His fiance' is in the room today. he is doing well and wants to go home. understands he needs to take the plavix and the aspirin daily.denies CP, SOB, abdominal pain, one sided weakness, numbness tingling, N, V, vison changes (chronic right eye blind), bowel or bladder issues. He admits to smoking 1 ppd cigarettes. 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 AKA right leg venous stasis with multiple areas of scabbing Results & Data Vital Signs (Past 12 Hours) Vital Signs Temp Pulse Pulse Resp BP BP Pulse Ox 05/02/19 14:09 131/81 05/02/19 11:18 36.7 C 74 18 168/89 H 97 05/02/19 08:33 90 130/84 05/02/19 07:16 71 05/02/19 06:50 36.7 C 73 18 151/88 H 98 05/02/19 03:59 36.8 C 79 18 159/90 H 96 05/02/19 03:30 79 Laboratory Results Abnormal lab results 05/01/19 05/01/19 05/01/19 Range/Units 15:42 16:26 20:18 Potassium (3.5-5.1) mmol/L Chloride 108 H (98-107) mmol/L BUN 43 H (7-18) mg/dl BUN/Creatinine Ratio 34.7 H (10-20) Glucose 116 H (70-99) mg/dl POC Glucose 116 H 202 H (70-99) 05/01/19 05/02/19 05/02/19 Range/Units 23:55 04:30 07:10 Potassium 5.3 H (3.5-5.1) mmol/L Chloride (98-107) mmol/L BUN 23 H (7-18) mg/dl BUN/Creatinine Ratio 21.6 H (10-20) Glucose 234 H (70-99) mg/dl POC Glucose 191 H 196 H (70-99) 05/02/19 05/02/19 Range/Units 07:39 11:29 Potassium (3.5-5.1) mmol/L Chloride (98-107) mmol/L BUN (7-18) mg/dl BUN/Creatinine Ratio (10-20) Glucose (70-99) mg/dl POC Glucose 247 H 230 H (70-99) Diagnostic Findings carotid doppler- Occlusion right internal carotid artery. Considerable plaque formation bilaterally. Significant stenotic change of the external carotid arteries bilaterally.
--- NOTE | 2019-05-02 14:56 | Discharge Summary ---
Date of Service May 02, 2019 Admission HPI Per Admitting Provider History obtained from patient and records. Medical history significant for chronic systolic heart failure secondary to ischemic cardiomyopathy as per records (EF 40 to 44%, TTE 2017), pulmonary hypertension as per records, hx PVD, CRI (baseline creatinine 1.8 as 03/2019), chronic anemia, baseline hemoglobin of 12, ongoing tobacco abuse. Recent admission June 2017 at [facility] for left foot gangrene status post emergent AKA. Earlier today, patient noted transient left upper extremity weakness. No headache, no neck pain, no chest pain, no S OB. Family noted transient word finding difficulty. Compliant with home Rx. Blood sugars at home 170s. Denies recent hypoglycemic episodes. Patient was at a gathering today where he consumed cake. Taking nightly ibuprofen for aches. Patient also admits to potato consumption. At the ER, SBP noted to be 90s. IV insulin given for blood sugars in the 500s. Medical History as above Surgical History : Left AKA, biceps tendon repair Family History : Diabetes, vascular disease Personal/Social history : One pack daily, no EtOH intake, disabled Admission Exam Per Admitting Provider GENERAL: Comfortable, no respiratory distress, chronically ill, obese SKIN: Pallor , warm HEENT: Partial alopecia, pale palpebral conjunctivae, no ptosis, dry buccal mucosa NECK : Supple, short neck, no tenderness CHEST : Decreased breath sounds , no tenderness HEART : RRR, systolic murmur ABDOMEN: Some distention, nontender EXTREMITIES : Left AKA stump, RLE swelling chronic, dressing over right foot wounds NEUROLOGIC : Coherent, no facial asymmetry, no pronator drift, no other gross focality Principal Diagnosis ACUTE CVA RIGHT PARIETAL REGION Discharge Exam General- oriented x 3, not in distress, speaks in sentences with no effort or accessory muscle use Eyes- anicteric Neck- no JVD Lungs- clear breath sounds bilaterally, no rales/wheezes Heart- normal rate, regular rhythm; no murmurs Abdomen- normal bowel sounds, nondistended, soft, nontender Extremities- right lower ext: chronic wounds- no bleeding, discharge, no erythema/warmth/tenderness left lower ext: s/p amputation Neuro- alert, oriented x 3; no gross focal neurologic deficits Skin- warm & dry Discharge Data Allergies Allergy/AdvReac Type Severity Reaction Status Date / Time No Known Allergies Allergy Unverified 04/30/19 19:36 Consultations 04/30/19 21:38 ED Decision to Admit Stat 05/01/19 01:36 Consult Case Management - Discharge Planning Routine Consult Case Management - Discharge Planning Routine Consult Nephrology Routine Consult Neurology Routine Ordered Studies 04/30/19 18:35 CT head/brain wo con Stat 05/01/19 01:36 MR angio head wo con Routine MR angio head wo con HISTORY: Mental status change tia TECHNIQUE: 3-D [id number] MRA of the brain was performed without contrast. COMPARISON STUDY: None FINDINGS: Complete occlusion right internal carotid artery which has been descri bed previously. Small caliber right middle cerebral arterial supply. Partial collateral flow primarily from the anterior communicating vascular supply. Very small caliber distal right middle cerebral arterial distribution. Posterior circulation appears unremarkable. There is high-grade stenosis of the distal left vertebral artery. Left middle cerebral is unremarkable. 50% stenosis origin left middle cerebral artery. IMPRESSION: 1. Occluded right internal carotid artery which has been described previously. 2. Superimposed high degree of stenotic change mid to distal right middle cerebral artery which demonstrates collateral filling via the anterior communicator. 3. High-grade stenosis distal aspect left posterior cerebral artery. 4. 50% stenosis origin left middle cerebral artery. MR brain wo con Routine Brain MRI WITHOUT CONTRAST HISTORY: Abnormal head CT. Left-sided weakness. TECHNIQUE: Multiplanar multisequence MRI of the brain was performed without the use of contrast. COMPARISON STUDY: Head CT 04/30/2019. FINDINGS: Best seen on image 16 of 40 for the DWI sequences there is a punctate focus of restricted diffusion within the periventricular white matter of the ri ght parietal lobe. This is consistent with an acute lacunar infarct. The midline structures are intact. Chronic occlusion of the right internal carotid artery is again noted. The paranasal sinuses and mastoid air cells are clear. There is no mass, hematoma, midline shift. Old lacunar infarct within the right caudate head and old small right occipital lobe infarct are again noted. Scattered T2 hype rintense foci within the white matter are nonspecific but suggestive of microvascular ischemic change. IMPRESSION: A punctate acute lacunar infarct within the periventricular white matter of the right parietal lobe. 05/01/19 13:42 US carotid doppler BI Routine US carotid doppler BI HISTORY: Mental status change stroke COMPARISON: None. TECHNIQUE: Real-time, grayscale, and color Doppler sonography of the carotid arteries was performed. Imaging reviewed in the transverse and longitudinal planes. All measurements were calculated based on NASCET criteria. FINDINGS: Antegrade flow is seen in the bilateral vertebral arteries. The brachial pressures are hemodynamically similar. Considerable plaque formation bilaterally. The peak systolic velocity within the right ICA is occluded. The peak systolic velocity within the left ICA is 126. The left systolic ratio is 1.8. IMPRESSION: 1. Occlusion right internal carotid artery. 2. Considerable plaque formation bilaterally. 3. Significant stenotic change of the external carotid arteries bilaterally. 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 Meadows has been consulted Recommend to add Plavix 75 mg p.o. daily to usual aspirin Continue strict risk factor modification Follow-up with neurologist Dr. Meadows in 4 to 6 weeks Hyperglycemia, diabetes type 2 Usually on metformin , insulin glargine Admitted with blood sugar readings in the 500s A1c 10.5 Insulin drip started, glycemic control consulted Discharge plan: Discontinue insulin glargine Start insulin NPH 70/30: 65 units in the morning, 35 units at bedtime Titrate accordingly as an outpatient Continue usual metformin 1000 mg twice a day Clinical pharmacist:Due to history of cardiovascular disease; would recommend discussing the addition of GLP-1 agonist or SGLT-2 inhibitor with PCP based on insurance coverage Instructions given to record blood glucose readings and report to primary care physician for insulin titration Acute renal failure on CKD stage II Likely prerenal etiology Baseline creatinine 1.8 as of December 2018 Creatinine 2.3 on admission IV fluids given Improved to 1.08 Employee Relations Manager service consulted Dr. Sahu Potassium 4.8 Repeat basic metabolic panel on follow-up with primary care physician next week Old CVA Cerebellar infarct noted on CAT scan Plavix added to aspirin Per neurologist History of congestive heart failure, systolic type EF 40% Euvolemic resume Lasix Continue carvedilol Pulmonary hypertension Respiratory status stable Chronic right lower extremity wounds No changes as per patient No signs of active infection at this time Follows with [facility] [place], planning for referral for second opinion as per patient, scheduled for for follow-up this months Strongly recommended to patient wound care service referral, despite extensive explanation, the patient has declined this referral, he understands and accepting the risk of infection, sepsis, worsening of the wound History of peripheral vascular disease Continue aspirin and atorvastatin Disposition Discharge to home Follow-up with primary care physician next week May 08, 2019 at 1245 Follow-up with [facility] for chronic right leg wounds. Follow-up with neurologist Dr. Meadows in 4 weeks. Case discussed with patient and his in detail and at length, All questions answered, They are agreeable, understanding, comfortable with the plan of care Provided education on stroke symptoms Total Time Total Time Spent Total Time Spent (In Minutes): 60 minutes Discharge Plan Discharge Items Patient Disposition: Home - Self-Care Reason For Visit: CAN'T USE HANDS,SLURRING WORDS,WEAKNESS Discharge Diagnosis: Acute stroke Activity: As commented below Activity Comment: Resume activity gradually as tolerated, no heavy exertion until follow-up with primary care physician Lifting: Wait until after follow-up appointment Exercise/Sports: Wait until after follow-up appointment Non-emergency contact: Primary Care Provider Call non-emergency contact if: you have any medication questions, you have a fever, your wound has increased redness, your wound has increased drainage and your wound pain has increased Follow-up/Referrals: Jac Meadows MD [Physician] - (In 4 weeks, please call office for an appointment) Jac Cordoba MD [Primary Care Provider] - 05/04/19 1:45 pm Diet: Carb Consistent or DM2, Heart Healthy and Low Potassium (2gm) Addtl Attending Provider Instructions: Stop insulin glargine. Instead, start insulin NPH 70/30, 65 units in the morning with breakfast and 35 units in the evening with dinner. Please record your blood sugar readings 2-3 times a day and show the record to Dr. Cordoba and follow-up Start taking Plavix 75 mg daily for stroke prevention. Resume Lasix tomorrow. Do not take NSAIDs like ibuprofen, Aleve, etc. Always talk to physician first prior to starting any medication. Take medications regularly and follow-up with your primary care physician and specialists closely. Risk Factors for Stroke: You can reduce your chances of stroke by working with your medical provider to adopt a healthy lifestyle. Some specific ways to lower your chance of stroke are: If you are a smoker, now is the time to stop smoking cigarettes If you are diabetic, improve the control of your blood sugars Avoid excessive amounts of alcohol Control high blood pressure Lose weight if you are overweight Be sure to lead an active lifestyle Eat a healthy diet low in salt, cholesterol and fat You should know about other risk factors for stroke that you are unable to control. These include: Age 55 years or older Male gender Certain racial groups: , or / Family History of Stroke, Mini stroke or Heart Attack Sickle Cell Disease Follow Up: It is important for you to keep your follow up appointments with your medical provider. Who to Call and When: Medical Emergencies: Call 911 immediately if you experience any of the following warning signs and symptoms of Stroke: Sudden numbness or weakness of the face, arm or leg, especially on one side of the body Sudden confusion, trouble speaking or understanding Sudden trouble seeing in one or both eyes Sudden trouble walking, dizziness, loss of balance or coordination Sudden severe headache with no cause Do not delay calling 911 if you experience any warning signs or symptoms of a stroke. Delay in seeking medical attention may affect what treatments can be given to you. Pending Studies at Discharge: No Stand-Alone Forms: [facility] Medications and DC Order Prescriptions: New clopidogrel 75 mg Tablet 75 mg PO QAM 30 Days Qty: 30 RF: 2 insulin NPH and regular human 100 unit/mL (70-30) insulin pen 65 units SQ QAM 30 Days Qty: 19.5 RF: 2 insulin NPH and regular human 100 unit/mL (70-30) insulin pen 35 units SQ DAILY 30 Days Qty: 10.5 RF: 2 Continued gabapentin [Neurontin] 800 mg Tablet 800 mg PO BID Qty: 0 RF: 0 oxycodone-acetaminophen [Percocet] 10-325 mg Tablet 1 tab PO TID PRN (Reason: Pain) Qty: 0 RF: 0 atorvastatin [Lipitor] 80 mg Tablet 80 mg PO PM Qty: 0 RF: 0 amitriptyline 25 mg Tablet 25 mg PO HS Qty: 0 RF: 0 furosemide [Lasix] 80 mg Tablet 80 mg PO PM Qty: 0 RF: 0 metformin [Glucophage] 1,000 mg Tablet 1,000 mg PO BID Qty: 0 RF: 0 nitroglycerin [Nitrostat] 0.4 mg Tablet, Sublingual 0.4 mg sublingual UD PRN (Reason: Chest Pain) Qty: 0 RF: 0 aspirin 81 mg Tablet,Delayed Release (Dr/Ec) 81 mg PO BID Qty: 0 RF: 0 carvedilol [Coreg] 3.125 mg Tablet 3.125 mg PO BID Qty: 0 RF: 0 docusate sodium [Colace] 100 mg Capsule 100 mg PO BID Qty: 0 RF: 0 acetaminophen [Tylenol Extra Strength] 500 mg Tablet 1,000 mg PO QID PRN (Reason: Pain) RF: 0 duloxetine [Cymbalta] 60 mg Capsule,Delayed Release(Dr/Ec) 60 mg PO QAM RF: 0 Discontinued ibuprofen 200 mg Tablet 400 mg PO Q6H PRN (Reason: Pain) RF: 0 insulin glargine 100 unit/mL (3 mL) Insulin Pen 32 unit SUBCUT AMPM RF: 0 Discharge Orders: Discharge Order (Routine); Ordered 05/02/19 Ordered By: Robel Telles/Other Patient Handouts: Diabetes Heart Disease, Diabetes Custodial Complications, Diabetes Resources, Diabetes Type 2 Coping, Diabetes Healthy Meals, Diabetes Carbs, Diabetes Manage A1C Test Admission Data Admit Date/Time: 04/30/19 22:46 Attending Provider: Robel Amezcua Admit Provider: Priyank Presley Primary Care Provider: Jac Cordoba Other Providers: Priyank Presley ; Katie Gutierrez ; Jas Beal ; Es Steinberg I ; La Morales ; Nat Valle ; Renuka Sahu ; Zulma Lainez John E ; Zulma Armijo ; Azael Shah Other Interventions: Discharge Summary Assessment (RN) Last Done: 05/02/19 15:20 DC Date/Time DO NOT enter until pt leaves facility: 05/02/19 15:46
[2019-05-02] MEDS ORDERED: INSULIN GLARGINE SOLOSTAR 100 UNITS/ML 3 ML PEN SC SCH (21:00)
== END 2019-05-02 15:46 | disposition home or self-care (01) | DRG 65 ==
LOC: ED 18:06 → 2W 22:46

== ENCOUNTER 2019-07-27 18:28 | Inpatient (IN) ==
[2019-07-27 19:53] LABS: Basophils # (auto) 0.04 K/uL (0-0.2); Basophils % (auto) 0.3 %; Eosinophils % (auto) 1.5 %; Hematocrit (blood only) 40.7 % (42-52); Hemoglobin 13.1 g/dL (14.0-18.0); Immature Granulocytes # (auto) 0.02 K/uL (0.00-0.02); Immature Granulocytes % (auto) 0.2 %; Lymphocytes % (auto) 13.1 %; Mean Corpuscular Hgb Conc 32.2 g/dL (32-36); Monocytes # (auto) 0.92 K/uL (0.11-0.59); Monocytes % (auto) 7.1 %; Neutrophils # (auto) 10.14 K/uL (1.4-6.5); Neutrophils % (auto) 77.8 %; Platelet Count 326 K/uL (130-400); RDW Coefficient of Variation 13.5 % (11.5-14.5); RDW Standard Deviation 44.6 fL (36.4-46.3); Red Blood Count 4.52 M/uL (4.7-6.1); White Blood Count 13.02 K/uL (4.8-10.8)
[2019-07-27 20:07] LABS: Partial Thromboplastin Ratio 0.9; Partial Thromboplastin Time 25.6 Seconds (21.0-31.0)
[2019-07-27 20:12] LABS: Alanine Aminotransferase 18 U/L (12-78); Albumin Level 3.4 gm/dl (3.4-5.0); Aspartate Aminotransferase 10 U/L (15-37); BUN Creatinine Ratio 30.4 (10-20); Blood Urea Nitrogen 30 mg/dl (7-18); Calcium 9.6 mg/dl (8.5-10.1); Carbon Dioxide 27 mmol/L (21-32); Chloride 102 mmol/L (98-107); Est GFR (African American) 102.9; Est GFR (Non-African American) 88.8; Glucose 196 mg/dl (70-99); Sodium 138 mmol/L (136-145)
[2019-07-27 20:15] LABS: Albumin Globulin Ratio 0.8 (0.9-2); Alkaline Phosphatase 165 U/L (45-117); Bilirubin,Total 0.3 mg/dl (0.2-1); Globulin 4.1 gm/dl (2.5-4.0); Total Protein 7.5 gm/dl (6.4-8.2)
--- NOTE | 2019-07-27 20:25 | XRay Report ---
XR chest 1V portable CLINICAL HISTORY: Dyspnea COMPARISON STUDY: Chest radiograph April 30, 2019. FINDINGS: Lung volumes are normal. Lungs are clear. There is no pneumothorax or pleural effusion. Car diomediastinal silhouette is stable. Mediastinal contours are normal. There is no evidence for pulmon aniyah edema. IMPRESSION: No acute cardiopulmonary findings. Electronically signed by: Valeriy Arce M.D. 07/27/2019 8:24 PM
[2019-07-27] MEDS ORDERED: OPTIRAY 320 125ml IV PRN (21:21)
--- NOTE | 2019-07-27 21:47 | CT Scan Report ---
CT ANGIOGRAPHY OF THE CHEST, PULMONARY EMBOLUS PROTOCOL CLINICAL HISTORY: Chest pain. Shortness of breath. Evaluate for pulmonary embolus. COMPARISON STUDY: Chest radiograph April 30, 2019 and July 27, 2019. TECHNIQUE: Following IV administration of Optiray-320, helical axial images of the chest were obtaine d utilizing the pulmonary embolus protocol. Maximal intensity projections and sagittal and coronal r eformats were viewed on an independent 3D workstation. IV contrast was administered without complica tion. Automated exposure control was utilized for the study. A dose lowering technique was utilized adhering to the principles of ALARA. CT DOSE: 909.57 mGy.cm FINDINGS: No pulmonary emboli are identified although the lower lobe pulmonary arteries are suboptim ally assessed due to respiratory motion. There is no thoracic aortic dissection. There is extensive c oronary artery calcification. The heart is moderately enlarged. There is no pericardial effusion. The re is bilateral gynecomastia. There are multiple enlarged lymph nodes. Index right supraclavicular ly mph node measures 1.9 x 1 cm. Index left axillary lymph node measures 2.2 x 1.3 cm. Index right axill aniyah lymph node measures 2.9 x 1.2 cm. There are multiple mildly enlarged mediastinal lymph nodes as w ell. Central airways are patent. Bilateral lower lobe patchy opacities are noted. Scattered groundgla ss opacities within the lungs are noted. There is no pneumothorax or pleural effusion. Bony thorax is unremarkable. There are several suspected mildly enlarged gastrohepatic ligament lymph nodes which a re partially imaged on this exam. IMPRESSION: 1. No pulmonary emboli identified although bilateral lower lobe pulmonary arteries suboptimally asses sed given respiratory motion. 2. Moderate bilateral axillary lymphadenopathy and mild supraclavicular and mediastinal lymphadenopat hy. This finding is nonspecific but raises the possibility of a lymphoproliferative process such as l ymphoma. 3. Mild bilateral lower lobe airspace opacities which favors an infectious process. 4. Moderate cardiomegaly. Extensive coronary artery calcification. 5. Bilateral gynecomastia. Electronically signed by: Valeriy Arce M.D. 07/27/2019 9:45 PM
[2019-07-27] MEDS ORDERED: PIPERACILL/TAZOBAC CONSULT ACTIVE PRN (22:17)
[2019-07-27] MEDS ORDERED: PIPERACILLIN/TAZOBACTAM 4.5 GM/120 ML BAG IV ONE (22:17)
--- NOTE | 2019-07-27 23:06 | Emergency Department Note ---
Entered by Denisse Pereira acting as a scribe for Roger Saenz MD History of Present Illness General Chief complaint: Shortness of Breath/Dyspnea Stated complaint: SOB, CANT TAKE A FULL DEEP BREATH Time Seen by Provider: 07/27/19 18:37 Source: patient History of Present Illness Onset (ago): hour(s) 2 Location: chest Pain Consistency: + constant Quality: + other ("shallow" breathing) Relieved By: + none Associated symptoms: + denies other symptoms (lightheadedness, urinary sx), + chest pain (onset 2 hours ago with sob, now resolved after Nitroglycerin ) and + shortness of breath; no diaphoresis and no nausea/vomiting The patient is a 53 year old male on Plavix and Aspirin with a history of stroke, CO, DANE, DM, and 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 The patient states that 2 hours ago he began experiencing central chest pain associated with shortness of breath. He took Nitroglycerin and his chest pain is now resolved. However, his shortness of breath remains and he describes it as "shallow breathing". He states that he thinks a O2 in the ED today will alleviate his symptoms. Of note, he wears a breathing mask to sleep at night due to sleep apnea. He does not have a history of clots in his lungs or angioplasty. The patient denies diaphoresis, nausea, vomiting, lightheadedness, and urinary sx. He offers no additional concerns at this time. Home Medications Home Medications Medication Instructions Recorded Confirmed Type oxycodone-acetaminophen [Percocet] 1 tab PO TID PRN #0 tab 02/24/17 07/27/19 History amitriptyline 25 mg PO HS #0 tab 06/16/17 07/27/19 History aspirin 81 mg PO BID #0 06/16/17 07/27/19 History atorvastatin [Lipitor] 80 mg PO QPM #0 tab 06/16/17 07/27/19 History carvedilol [Coreg] 3.125 mg PO BID #0 tab 06/16/17 07/27/19 History docusate sodium [Colace] 100 mg PO BID #0 cap 06/16/17 07/27/19 History furosemide [Lasix] 80 mg PO QAM #0 tab 06/16/17 07/27/19 History nitroglycerin [Nitrostat] 0.4 mg SUBLINGUAL UD PRN #0 btl 06/16/17 07/27/19 History acetaminophen [Tylenol Extra 1,000 mg PO QID PRN 04/30/19 07/27/19 History Strength] duloxetine [Cymbalta] 60 mg PO QAM 04/30/19 07/27/19 History clopidogrel 75 mg PO QAM 30 Days #30 tab 05/02/19 07/27/19 Rx ferrous sulfate [iron] 0 mg PO DAILY 07/27/19 07/27/19 History gabapentin 300 mg PO HS 07/27/19 07/27/19 History insulin glargine [Lantus Solostar 34 unit SUBCUT BID 07/27/19 07/27/19 History U-100 Insulin] metformin 500 mg PO BID 07/27/19 07/27/19 History Allergies Allergy/AdvReac Type Severity Reaction Status Date / Time No Known Allergies Allergy Verified 07/27/19 19:50 Past Med/Surg History Medical History Diabetes type 2, controlled Family History Other No pertinent family history in first degree relatives Social History Preferred Language: Hebrew Communication Ability: Effective Head [employer] 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 and A total of 10 systems reviewed and were otherwise negative Physical Exam Vital Signs Vital Signs - 24 hr 07/27/19 18:33 07/27/19 19:25 07/27/19 19:30 Temperature 36.9 C Temperature Source Oral Pulse Rate 94 H Pulse Rate [Apical] 89 91 H Pulse Rate from SpO2 Sensor Respiratory Rate 20 12 14 Respiratory Effort / Characteristics Non-Labored Non-Labored Respiratory Depth Normal Normal Blood Pressure 127/85 Blood Pressure [Left Arm] 135/74 113/78 Blood Pressure Mean 99 Blood Pressure Mean [Left Arm] 94 89 Blood Pressure Position Sitting Pulse Oximetry 95 97 96 Oxygen Delivery Method Nasal Cannula Nasal Cannula Oxygen Flow Rate 2 2 Sepsis Recent Fever Within 48 Hours No Sepsis New/Unexplained Change in Mental Status No Sepsis Action Taken by Nursing No Action Required Pulse Oximetry Post Tiitration 07/27/19 20:00 07/27/19 20:30 07/27/19 21:00 Temperature Temperature Source Pulse Rate Pulse Rate [Apical] 88 92 H 94 H Pulse Rate from SpO2 Sensor Respiratory Rate 15 18 24 Respiratory Effort / Characteristics Non-Labored Non-Labored Non-Labored Respiratory Depth Normal Normal Normal Blood Pressure Blood Pressure [Left Arm] 119/82 129/87 122/82 Blood Pressure Mean Blood Pressure Mean [Left Arm] 94 101 95 Blood Pressure Position Pulse Oximetry 98 96 96 Oxygen Delivery Method Nasal Cannula Nasal Cannula Nasal Cannula Oxygen Flow Rate 2 2 2 Sepsis Recent Fever Within 48 Hours Sepsis New/Unexplained Change in Mental Status Sepsis Action Taken by Nursing Pulse Oximetry Post Tiitration 07/27/19 21:45 07/27/19 22:07 07/27/19 22:30 Temperature Temperature Source Pulse Rate Pulse Rate [Apical] 92 H 91 H Pulse Rate from SpO2 Sensor Respiratory Rate 13 22 Respiratory Effort / Characteristics Non-Labored Non-Labored Respiratory Depth Normal Normal Blood Pressure Blood Pressure [Left Arm] 107/77 137/91 Blood Pressure Mean Blood Pressure Mean [Left Arm] 87 106 Blood Pressure Position Pulse Oximetry 96 97 97 Oxygen Delivery Method Nasal Cannula Nasal Cannula Nasal Cannula Oxygen Flow Rate 2 2 2 Sepsis Recent Fever Within 48 Hours Sepsis New/Unexplained Change in Mental Status Sepsis Action Taken by Nursing Pulse Oximetry Post Tiitration 96 07/27/19 23:00 Temperature Temperature Source Pulse Rate 88 Pulse Rate [Apical] Pulse Rate from SpO2 Sensor 88 Respiratory Rate 22 Respiratory Effort / Characteristics Respiratory Depth Blood Pressure 156/83 H Blood Pressure [Left Arm] Blood Pressure Mean 97 Blood Pressure Mean [Left Arm] Blood Pressure Position Pulse Oximetry 98 Oxygen Delivery Method Oxygen Flow Rate Sepsis Recent Fever Within 48 Hours Sepsis New/Unexplained Change in Mental Status Sepsis Action Taken by Nursing Pulse Oximetry Post Tiitration Constitutional: Vital signs reviewed. Eyes: Pupils are equal round reactive to light. Conjunctiva are noninjected. ENT: Pharynx is clear without erythema or exudate. Mucous membranes are dry. Neck supple without meningeal signs. Respiratory: Clear to auscultation bilaterally. Breath sounds are equal bilaterally. Cardiovascular: Regular rate and rhythm. No rubs or gallops. GI: Soft, nondistended and nontender. Bowel sounds are present. Musculoskeletal: Bilateral AKA, no signs of infection. Integumentary: No cyanosis. Neurological: The patient is awake and alert. No focal deficits. Psychiatric: Normal affect. Course Course 1837: Past medical records reviewed. The patient was evaluated in room B07. A complete history and physical exam was performed. 2049: I checked on the patient and he states that he is feeling much better after the oxygen treatment. He has a nsr on the cardiac rehab nurse with a rate of 70. I spoke to him about his test results and he is agreeable to a CT. 2216: I discussed the test results with the patient. I then spoke with Dr. Jim, [facility] Hospitalist who accepts the patient for admission. The patient verbally expressed understanding and agreement of the treatment plan. The patient will be evaluated for further treatment. Administered Medications Ioversol (Optiray 320 125ml) 98 ml IV ONCE PRN PRN Reason: Interaction Checking Stop: 07/31/19 21:20 Last Admin: 07/27/19 21:21 Dose: 98 ml Documented by: [id number] Discontinued Medications Piperacillin Sod/Tazobactam Sod (Zosyn) 4.5 gm in 120 mls @ 240 mls/hr IV NOW ONE Stop: 07/27/19 22:46 Last Admin: 07/27/19 22:55 Dose: 240 mls/hr Documented by: [id number] Medical Decision Making Differential Diagnosis Differential diagnosis includes but is not limited to unstable angina, CO, PNA, pleurisy, and PE. Medical Records Attestation: I reviewed the patient's medical records. The patient had a recent medical admission in April 2019 for a stroke affecting his left arm as well as an DANE. Home Medications Current Medication List: was personally reviewed by me Laboratory Data Attestation: I reviewed the patient's lab results. Result diagrams: 07/27/19 19:43 07/27/19 19:43 Lab Results 07/27/19 07/27/19 12 Range/Units 19:43 19:43 19:43 WBC 13.02 H (4.8-10.8) K/uL RBC 4.52 L (4.7-6.1) M/uL Hgb 13.1 L (14.0-18.0) g/dL Hct 40.7 L (42-52) % MCV 90.0 (80-100) fL MCH 29.0 (25-34) pg MCHC 32.2 (32-36) g/dL RDW Std Deviation 44.6 (36.4-46.3) fL RDW Coeff of Taisha 13.5 (11.5-14.5) % Plt Count 326 (130-400) K/uL MPV 11.0 H (7.4-10.4) fL Immature Gran % (Auto) 0.2 % Neut % (Auto) 77.8 % Lymph % (Auto) 13.1 % [place] % (Auto) 7.1 % Eos % (Auto) 1.5 % Baso % (Auto) 0.3 % Immature Gran # (Auto) 0.02 (0.00-0.02) K/uL Neut # (Auto) 10.14 H (1.4-6.5) K/uL Lymph # (Auto) 1.70 (1.2-3.4) K/uL [place] # (Auto) 0.92 H (0.11-0.59) K/uL Eos # (Auto) 0.20 (0-0.5) K/uL Baso # (Auto) 0.04 (0-0.2) K/uL PT 10.0 (9.0-12.0) Seconds INR 1.0 (0.9-1.1) APTT 25.6 (21.0-31.0) Seconds PTT Ratio 0.9 POC D-Dimer (0-450) ng/mlFEU Sodium 138 (136-145) mmol/L Potassium 4.0 (3.5-5.1) mmol/L Chloride 102 (98-107) mmol/L Carbon Dioxide 27 (21-32) mmol/L Anion Gap 9.0 (3-11) BUN 30 H (7-18) mg/dl Creatinine 0.97 (0.6-1.4) mg/dl Est Cr Clr Drug Dosing Not Reportable Est GFR ( Amer) 102.9 Est GFR (Non-Af Amer) 88.8 BUN/Creatinine Ratio 30.4 H (10-20) Glucose 196 H (70-99) mg/dl Calcium 9.6 (8.5-10.1) mg/dl Total Bilirubin 0.3 (0.2-1) mg/dl AST 10 L (15-37) U/L ALT 18 (12-78) U/L Alkaline Phosphatase 165 H (45-117) U/L POC Troponin I (0-0.045) ng/ml Total Protein 7.5 (6.4-8.2) gm/dl Albumin 3.4 (3.4-5.0) gm/dl Globulin 4.1 H (2.5-4.0) gm/dl Albumin/Globulin Ratio 0.8 L (0.9-2) 07/27/19 Range/Units 19:47 WBC (4.8-10.8) K/uL RBC (4.7-6.1) M/uL Hgb (14.0-18.0) g/dL Hct (42-52) % MCV (80-100) fL MCH (25-34) pg MCHC (32-36) g/dL RDW Std Deviation (36.4-46.3) fL RDW Coeff of Taisha (11.5-14.5) % Plt Count (130-400) K/uL MPV (7.4-10.4) fL Immature Gran % (Auto) % Neut % (Auto) % Lymph % (Auto) % [place] % (Auto) % Eos % (Auto) % Baso % (Auto) % Immature Gran # (Auto) (0.00-0.02) K/uL Neut # (Auto) (1.4-6.5) K/uL Lymph # (Auto) (1.2-3.4) K/uL [place] # (Auto) (0.11-0.59) K/uL Eos # (Auto) (0-0.5) K/uL Baso # (Auto) (0-0.2) K/uL PT (9.0-12.0) Seconds INR (0.9-1.1) APTT (21.0-31.0) Seconds PTT Ratio POC D-Dimer > 450 H* (0-450) ng/mlFEU Sodium (136-145) mmol/L Potassium (3.5-5.1) mmol/L Chloride (98-107) mmol/L Carbon Dioxide (21-32) mmol/L Anion Gap (3-11) BUN (7-18) mg/dl Creatinine (0.6-1.4) mg/dl Est Cr Clr Drug Dosing Est GFR ( Amer) Est GFR (Non-Af Amer) BUN/Creatinine Ratio (10-20) Glucose (70-99) mg/dl Calcium (8.5-10.1) mg/dl Total Bilirubin (0.2-1) mg/dl AST (15-37) U/L ALT (12-78) U/L Alkaline Phosphatase (45-117) U/L POC Troponin I 0.06 H (0-0.045) ng/ml Total Protein (6.4-8.2) gm/dl Albumin (3.4-5.0) gm/dl Globulin (2.5-4.0) gm/dl Albumin/Globulin Ratio (0.9-2) Imaging Data Radiologist's Impression: Radiology results as stated below per my review and the radiologist's interpretation: XR chest 1V portable CLINICAL HISTORY: Dyspnea COMPARISON STUDY: Chest radiograph April 30, 2019. FINDINGS: Lung volumes are normal. Lungs are clear. There is no pneumothorax or pleural effusion. Cardiomediastinal silhouette is stable. Mediastinal contours are normal. There is no evidence for pulmonary edema. IMPRESSION: No acute cardiopulmonary findings. Electronically signed by: Valeriy Arce M.D. 07/27/2019 8:[address] ANGIOGRAPHY OF THE CHEST, PULMONARY EMBOLUS PROTOCOL CLINICAL HISTORY: Chest pain. Shortness of breath. Evaluate for pulmonary embolus. COMPARISON STUDY: Chest radiograph April 30, 2019 and July 27, 2019. TECHNIQUE: Following IV administration of Optiray-320, helical axial images of the chest were obtained utilizing the pulmonary embolus protocol. Maximal intensity projections and sagittal and coronal reformats were viewed on an independent 3D workstation. IV contrast was administered without complication. Automated exposure control was utilized for the study. A dose lowering technique was utilized adhering to the principles of ALARA. CT DOSE: 909.57 mGy.cm FINDINGS: No pulmonary emboli are identified although the lower lobe pulmonary arteries are suboptimally assessed due to respiratory motion. There is no thoracic aortic dissection. There is extensive coronary artery calcification. The heart is moderately enlarged. There is no pericardial effusion. There is bilateral gynecomastia. There are multiple enlarged lymph nodes. Index right supraclavicular lymph node measures 1.9 x 1 cm. Index left axillary lymph node measures 2.2 x 1.3 cm. Index right axillary lymph node measures 2.9 x 1.2 cm. There are multiple mildly enlarged mediastinal lymph nodes as well. Central airways are patent. Bilateral lower lobe patchy opacities are noted. Scattered groundglass opacities within the lungs are noted. There is no pneumothorax or pleural effusion. Bony thorax is unremarkable. There are several suspected mildly enlarged gastrohepatic ligament lymph nodes which are partially imaged on this exam. IMPRESSION: 1. No pulmonary emboli identified although bilateral lower lobe pulmonary arteries suboptimally assessed given respiratory motion. 2. Moderate bilateral axillary lymphadenopathy and mild supraclavicular and mediastinal lymphadenopathy. This finding is nonspecific but raises the possibility of a lymphoproliferative process such as lymphoma. 3. Mild bilateral lower lobe airspace opacities which favors an infectious process. 4. Moderate cardiomegaly. Extensive coronary artery calcification. 5. Bilateral gynecomastia. Electronically signed by: Valeriy Arce M.D. 07/27/2019 9:45 PM ECG Data Attestation: I personally reviewed and interpreted this ECG as follows: Indication: + chest pain Rate (beats per minute): 95 Rhythm: + normal sinus ECG Intervals/blocks: + Right Bundle branch block ECG Findings: + Other (QRS is 154 bebo seconds); no PVCs Comparison ECG Date: from (04/30/19) Change: no significant change Blood Pressure Blood Pressure Findings: Elevated blood pressure Blood Pressure Disposition: elevated BP felt to be situational MDM Narrative I did evaluate the patient as noted above. The patient is presenting with chest pressure earlier today that was relieved with nitroglycerin. He states that he was told that he has a history of a maker although denies having had a cardiac catheterization. He was told that there was nothing that could be done for his heart. He no longer has any chest pressure but states that he still feels short of breath. I did immediately put him on oxygen and he stated he fel t much better. His room air saturation was 93%. IV access was established. The patient was placed on a continuous cardiac rehab nurse. I did order and personally review the patient's 12-lead EKG as described above. He has an old right bundle branch block but no acute ischemic changes. I did order and personally reviewed the images of the patient's chest x-ray as described above. Chest x-ray is un remarkable. I did order and review the patient's blood work as noted in the electronic medical record. Troponin is slightly elevated. D-dimer is also elevated. After discussion with the patient, I did order a CT angiogram of the chest. I did review the images myself as well as the radiology report as described above. There is no evidence of pulmonary embolism. He does have bilateral lower lobe infiltrates. I did order blood cultures and treated him with IV Zosyn. The nurse later told me that he refused the blood cultures as he had multiple vena punctures for his lab work previously. I did discuss the test results with the patient. I did discuss the case with the hospitalist and insurance case manager. He is symptom-free at this time. Impression & Plan Acute chest pain, Elevated troponin, Pneumonia of both lower lobes Discharge Plan Visit Data Chief Complaint: Shortness of Breath/Dyspnea Stated Complaint: SOB, CANT TAKE A FULL DEEP BREATH ED Provider: Roger Saenz Discharge Problem: Acute chest pain, Elevated troponin, Pneumonia of both lower lobes Patient Disposition: Being Evaluated by Hospitalist Forms Stand Alone Forms: My [facility] [place] [email or web address] Prescriptions Prescriptions: No Action oxycodone-acetaminophen [Percocet] 10-325 mg Tablet 1 tab PO TID PRN (Reason: Pain) Qty: 0 RF: 0 atorvastatin [Lipitor] 80 mg Tablet 80 mg PO QPM Qty: 0 RF: 0 amitriptyline 25 mg Tablet 25 mg PO HS Qty: 0 RF: 0 furosemide [Lasix] 80 mg Tablet 80 mg PO QAM Qty: 0 RF: 0 nitroglycerin [Nitrostat] 0.4 mg Tablet, Sublingual 0.4 mg sublingual UD PRN (Reason: Chest Pain) Qty: 0 RF: 0 aspirin 81 mg Tablet,Delayed Release (Dr/Ec) 81 mg PO BID Qty: 0 RF: 0 carvedilol [Coreg] 3.125 mg Tablet 3.125 mg PO BID Qty: 0 RF: 0 docusate sodium [Colace] 100 mg Capsule 100 mg PO BID Qty: 0 RF: 0 acetaminophen [Tylenol Extra Strength] 500 mg Tablet 1,000 mg PO QID PRN (Reason: Pain) RF: 0 duloxetine [Cymbalta] 60 mg Capsule,Delayed Release(Dr/Ec) 60 mg PO QAM RF: 0 clopidogrel 75 mg Tablet 75 mg PO QAM 30 Days Qty: 30 RF: 2 gabapentin 300 mg capsule 300 mg PO HS RF: 0 metformin 500 mg tablet extended release 24 hr 500 mg PO BID RF: 0 Lantus Solostar U-100 Insulin 100 unit/mL (3 mL) insulin pen 34 unit SUBCUT BID RF: 0 ferrous sulfate [iron] 325 mg (65 mg iron) Tablet 0 mg PO DAILY RF: 0 Referrals Referrals: Jac Cordoba MD [Primary Care Provider] - Discharge Problem: Pneumonia of both lower lobes Qualifiers: Pneumonia type: due to unspecified organism Qualified Code(s): J18.9 - Pneumonia, unspecified organism The scribe's documentation has been prepared under my direction and personally reviewed by me in its entirety. I confirm that the note above accurately reflects all work, treatment, procedures, and medical decision making performed by me.
[2019-07-28] MEDS ORDERED: ACETAMINOPHEN 325 MG TAB PO PRN (00:20)
[2019-07-28] MEDS ORDERED: OXYCODONE/ACETAMINOPHEN 10-325 TAB PO PRN (00:20)
[2019-07-28] MEDS ORDERED: ONDANSETRON INJ 2 MG/ML 2 ML VIAL IV PRN (00:20)
[2019-07-28] MEDS ORDERED: NITROGLYCERIN SL 0.4 MG/TAB TAB SL PRN (00:20)
[2019-07-28] MEDS ORDERED: DOXYCYCLINE HYCLATE 100 MG CAP PO STA (00:20)
[2019-07-28] MEDS ORDERED: POLYETHYLENE (MIRALAX) 17 GM PACK PO PRN (00:20)
[2019-07-28] MEDS ORDERED: PATIENT'S HEIGHT AND/OR WEIGHT NEEDED SCH (00:45)
[2019-07-28] MEDS ORDERED: PHARMACY GLYCEMIC MGMT CONSULT PRN (01:02)
--- NOTE | 2019-07-28 01:17 | History and Physical Report ---
DATE OF ADMISSION: 07/27/2019 CHIEF COMPLAINT: Chest pain, shortness of breath. 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 associated with type 2 diabetes, peripheral vascular disease, status post right AKA and status post left AKA, chronic combined systolic and diastolic congestive heart failure, history of ischemic right MCA stroke, bilateral carotid artery stenosis, right bundle-branch block, [id number] pulmonary hypertension, coronary artery disease, chronic kidney disease stage III, chronic pain syndrome and iron deficiency anemia who lives with his son who came here because of shortness of breath and chest pressure symptoms started around 5:00 p.m., was very short of breath, he could not take deep breath. He has some dry cough and he also had some chest pressure. For this reason, he came to the Emergency Room. Nitro relieved his pain. He is currently on oxygen 2 liters. He is saturating fine. He recently had a sleep study done. He is supposed to follow up for his further sleep studies. As per the Cardiology notes, in November, he was supposed to be started on Imdur, but the patient is not taking Imdur. Denies any sweating. No nausea. No headache. No blurred vision. No earache. No runny nose. No sore throat. Currently, he is eating regular food and swallows okay. No night sweats. No recent weight gain or weight loss. No abdominal pain. Normal bowel and bladder movements. No hematuria or burning micturition. No melena or hematochezia. Currently resting comfortably and hemodynamically stable. ALLERGIES: No known drug allergies. PAST MEDICAL HISTORY: As mentioned above. PAST SURGICAL HISTORY: Status post left AKA, status post right AKA and repair of biceps tendon rupture. MEDICATIONS: The patient is on Tylenol 650 mg p.o. q.i.d. p.r.n., metoprolol 25 mg p.o. at bedtime, aspirin 81 mg p.o. b.i.d., Lipitor 80 mg p.o. q.p.m., Coreg 6.25 mg p.o. b.i.d., Plavix 75 mg p.o. daily, Colace 100 mg p.o. b.i.d., Cymbalta 60 mg p.o. a.m., ferrous sulfate 325 mg p.o. daily, Lasix 80 mg p.o. daily, Lantus 35 units b.i.d., NovoLog 20 units b.i.d., metformin 500 mg p.o. b.i.d., nitroglycerin 0.4 mg sublingual p.r.n. and Percocet 1 tablet p.o. t.i.d. p.r.n. FAMILY HISTORY: No family history on file. SOCIAL HISTORY: , currently lives with his son. Smokes a quarter pack a day. No alcohol use. No drug use. REVIEW OF SYMPTOMS: As per HPI. Rest of review of systems negative. PHYSICAL EXAMINATION: GENERAL: The patient is of moderate build, not in acute distress. VITAL SIGNS: Temperature 36.9, pulse 80, respiratory rate 22, blood pressure 156/83 and oxygen 98% on 2 liters. HEENT: No pallor. No icterus. Blind in rifght eye. Right pupil dilated. Left pupil round and reactive to light. NECK: No JVD. No neck masses. No carotid bruits. CARDIOVASCULAR: S1, S2 heard. Regular rate and rhythm. No murmur. No gallop. RESPIRATORY SYSTEM: Normal AP diameter. No accessory muscle use. No wheezing. No crackles. ABDOMEN: Soft. Bowel sounds present. Nontender. No distention. 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 Alert and Oriented. Left upper extremity weakness present. EXTREMITIES: Status post left AKA, status post right AKA. LABORATORY DATA: WBC 13, hemoglobin 13.1, hematocrit 40.7 and platelets 326. PT of 10, INR of 1 and APTT of 25.6. Point of care D-dimer greater than 450. Sodium 138, potassium 4, chloride 102, bicarbonate 27, BUN 13, creatinine 0.9, serum glucose 196, calcium 9.6, total bilirubin 0.3, AST 10, ALT 18 and alkaline phosphatase 165. Point of care troponin I of 0.06. Chest x-ray, no acute cardiopulmonary findings. CTA of the chest, no pulmonary emboli identified. Moderate bilateral axillary lymphadenopathy and mild supraclavicular and mediastinal lymphadenopathy. This finding is nonspecific but raises a possibility of a lymphoproliferative process such as lymphoma. Mild bilateral lower lobe opacity which favors an infectious process, moderate cardiomegaly, extensive coronary artery calcification and bilateral gynecomastia. ELECTROCARDIOGRAM: Normal sinus rhythm, rate of 90, right bundle-branch block, no acute ST changes seen. ASSESSMENT AND PLAN: This is a 53-year-old male who presents with shortness of breath and chest pain. 1. Chest pain, pressure-like feeling, relieved with nitro. Initial electrocardiogram and troponin were unremarkable. We will follow serial cardiac enzymes, echocardiogram and monitor in tele floor. Consult Cardiology in a.m. We will keep n.p.o. Continue his home medication of Coreg, Plavix, aspirin and statin. 2. Shortness of breath, pneumonia on CAT scan. Received Zosyn in the Emergency Room. Will start on Rocephin and doxycycline. Follow the cultures. Follow the response. 3. Bilateral axillary lymphadenopathy and also mediastinal lymphadenopathy, nonspecific, needs to follow up. We will consult Surgery for possible need for biopsy. 4. History of coronary artery disease. Continue home medications of Coreg, aspirin, Plavix and statin. 5. History of chronic combined systolic and diastolic congestive heart failure. In 04/2019, his ejection fraction was 55% to 60%. Continue home Lasix, lisinopril and Coreg. We will monitor for any volume overload. 6. Chronic pain syndrome. Continue his home pain medications and gabapentin. 7. Depression. Continue Cymbalta. He states he is taking amitriptyline too. 8. Hyperlipidemia. Continue statin. 9. Peripheral vascular disease, status post bilateral above knee amputation. He also has 100% right coronary artery occlusion and 50% to 60% left internal carotid occlusion. Follows up with Vascular Surgery. On aspirin, statin and Plavix. 10. Pulmonary hypertension. Needs to follow up 11. Obstructive sleep apnea. Follow up with sleep study. 12. Diabetes, currently n.p.o. We will cut back his Lantus to 15 units b.i.d. and insulin sliding scale. Hold metformin. Follow his blood sugars and follow HbA1c level. 13. Diabetic retinopathy, blind in the right eye. Follow up with Ophthalmology. 14. History of stroke, right-sided weakness. On aspirin, statin and Plavix. 15. Deep vein thrombosis prophylaxis. Cannot place sequential compression devices because of bilateral above knee amputation. We will hold heparin for any procedures for now. DISPOSITION: Admit to tele floor. Expect to discharge home and follow with family doctor. Level 1 full code as per discussion with the patient . Says his son is POA. BRANTLEY
[2019-07-28] MEDS ORDERED: CARBOHYDRATES FOR HYPOGLYCEMIA PO PRN (01:45)
[2019-07-28] MEDS ORDERED: GLUCOSE 40% GEL 15 GM TUBE PO PRN (01:45)
[2019-07-28] MEDS ORDERED: GLUCOSE 10 TABS/TUBE PO PRN (01:45)
[2019-07-28] MEDS ORDERED: DEXTROSE 50% 50 ML SYRINGE IV PRN (01:45)
[2019-07-28] MEDS ORDERED: GLUCAGON FOR INJ 1 MG VIAL SQ PRN (01:45)
[2019-07-28] MEDS: INSULIN ASPART 100 UNITS/ML 3 ML PEN SC SCH ×4 (05:31→20:40)
[2019-07-28 06:21] LABS: Basophils # (auto) 0.03 K/uL (0-0.2); Basophils % (auto) 0.3 %; Eosinophils # (auto) 0.19 K/uL (0-0.5); Eosinophils % (auto) 1.9 %; Hematocrit (blood only) 39.5 % (42-52); Hemoglobin 12.4 g/dL (14.0-18.0); Immature Granulocytes # (auto) 0.02 K/uL (0.00-0.02); Immature Granulocytes % (auto) 0.2 %; Lymphocytes % (auto) 28.5 %; Mean Corpuscular Hemoglobin 28.5 pg (25-34); Mean Corpuscular Hgb Conc 31.4 g/dL (32-36); Mean Corpuscular Volume 90.8 fL (80-100); Mean Platelet Volume 10.7 fL (7.4-10.4); Monocytes # (auto) 0.74 K/uL (0.11-0.59); Monocytes % (auto) 7.3 %; Neutrophils % (auto) 61.8 %; Platelet Count 319 K/uL (130-400); RDW Coefficient of Variation 13.5 % (11.5-14.5); RDW Standard Deviation 45.1 fL (36.4-46.3); Red Blood Count 4.35 M/uL (4.7-6.1); White Blood Count 10.18 K/uL (4.8-10.8)
[2019-07-28 06:45] LABS: BUN Creatinine Ratio 28.8 (10-20); Creatinine Clr Calc Pharmacy 72.8 ml/min; Est GFR (African American) 105.5; Magnesium 2.2 mg/dl (1.8-2.4); Potassium 3.7 mmol/L (3.5-5.1)
[2019-07-28 07:07] LABS: Estimated Average Glucose 140 mg/dl; Hemoglobin A1C 6.5 % (4.5-5.6)
[2019-07-28] MEDS ORDERED: PERFLUTREN LIPID MICROSPHERE (DEFINITY) IV ONE (08:25)
--- NOTE | 2019-07-28 08:59 | Cardiology Consultation ---
Date of Consultation July 28, 2019 Assessment & Plan (1) Acute chest pain: EKGs without acute ischemic change. Troponin not reflective of an acute coronary syndrome. Resting echocardiography pending interpretation. Options discussed with patient including doing nothing, medical management, pharmacological stress testing, referral for diagnostic cardiac catheterization. Patient requests ongoing medical management. Tobacco cessation urged. Recommend the addition of Imdur (previously advised but refused). Continue dual antiplatelet therapy. Continue high intensity statin therapy. Maintain euvolemia. Amlodipine may be a good future anti-angina. We could also consider changing carvedilol to metoprolol prior to adding Ranexa. Patient was seen and examined personally. Assessment and plan as well outlined above. Patient with multiple cardiovascular ischemic risk factors and concerning symptoms possibly reflecting angina. Initial evaluation reveals no acute injury or ischemia. After discussion patient wishes medical therapy only and adjustments made. Underlying medical issues being addressed by primary service We will follow in hospital Eben Coelho MD (2) Pneumonia of both lower lobes: As per hospitalist service (3) Hypertension: Follow/monitor (4) Dyslipidemia: Continue high intensity statin therapy, atorvastatin 80 mg/day (5) Tobacco abuse: Tobacco cessation urged History of Present Illness Reason for Consultation: Chest pain Requesting Physician: Hernán Attending Physician: Amie Mckay MD History of Present Illness Complex 53-year-old male with past medical history detailed below who is being seen at the request of Dr. Jim. Reason for consultation is chest discomfort. The patient describes experiencing an episode of chest discomfort while sittin on his recliner chair. The quality of the pain is described as a pressure. The pain was located in the substernal region. The pain occurred randomly. It lasted less than five minutes. It did not radiate. He denies associated symptoms. The pattern of symptoms is sporadic. Precipitating factors are not described. Factors which relieve the discomfort include nitroglycerin within 5 minutes. The characteristics of the pain suggest angina. In the emergency room the patient also described feeling short of breath. This improved promptly with supplemental oxygen therapy. EKG on presentation showed no acute ischemic changes. [id number] troponin was minimally elevated at 0.06. Troponin I is negative, 0.034 than 0.024 ng/mL. Chest x-ray showed no acute cardiopulmonary findings however a chest CT revealed moderate bilateral axillary lymphadenopathy and mild supraclavicular and mediastinal lymphadenopathy raises the possibility of a lymphoproliferative process and mild bilateral lower lobe airspace opacities favoring infection. The patient feels improved. He has not had any further chest discomfort since presentation. History includes probable ischemic cardiomyopathy with both systolic and diastolic congestive heart failure. The patient has severe diffuse peripheral arterial disease including significant bilateral internal carotid artery disease and bilateral lower extremity peripheral vascular disease status post bilateral above-knee amputations. Unfortunately, he continues to smoke. He never took the Imdur prescribed/recommended by Dr. Gordon on multiple occasions. Ischemic cardiomyopathy Systolic and diastolic congestive heart failure Severe diffuse peripheral vascular disease Severe bilateral internal carotid artery disease History of acute right MCA stroke Chronic right bundle branch block Pulmonary hypertension Chronic tobacco abuse Type 2 diabetes mellitus with diabetic retinopathy and chronic kidney disease Chronic pain syndrome Iron deficiency anemia Depression Anxiety Right biceps tendon repair Social History: Chronic ongoing tobacco abuse. No smokeless tobacco abuse. No significant alcohol use. No illegal drug use. 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 Allergies Allergy/AdvReac Type Severity Reaction Status Date / Time No Known Allergies Allergy Verified 07/27/19 19:50 Home Medications Home Medications Medication Instructions Recorded Confirmed Type oxycodone-acetaminophen [Percocet] 1 tab PO TID PRN #0 tab 02/24/17 07/27/19 History amitriptyline 25 mg PO HS #0 tab 06/16/17 07/27/19 History aspirin 81 mg PO BID #0 06/16/17 07/27/19 History atorvastatin [Lipitor] 80 mg PO QPM #0 tab 06/16/17 07/27/19 History carvedilol [Coreg] 3.125 mg PO BID #0 tab 06/16/17 07/27/19 History docusate sodium [Colace] 100 mg PO BID #0 cap 06/16/17 07/27/19 History furosemide [Lasix] 80 mg PO QAM #0 tab 06/16/17 07/27/19 History nitroglycerin [Nitrostat] 0.4 mg SUBLINGUAL UD PRN #0 btl 06/16/17 07/27/19 History acetaminophen [Tylenol Extra 1,000 mg PO QID PRN 04/30/19 07/27/19 History Strength] duloxetine [Cymbalta] 60 mg PO QAM 04/30/19 07/27/19 History clopidogrel 75 mg PO QAM 30 Days #30 tab 05/02/19 07/27/19 Rx ferrous sulfate [iron] 0 mg PO DAILY 07/27/19 07/27/19 History gabapentin 300 mg PO HS 07/27/19 07/27/19 History insulin glargine [Lantus Solostar 34 unit SUBCUT BID 07/27/19 07/27/19 History U-100 Insulin] metformin 500 mg PO BID 07/27/19 07/27/19 History Patient History Medical History Diabetes type 2, controlled Family History Other No pertinent family history in first degree relatives Social History Preferred Language: Mohawk Communication Ability: Effective Peer Counselor Required: No Beliefs That Will Affect Care: None marital status: Life Partner Current Living Situation: Family Current Living Situation Comment: lives with son Feels Safe at Home: Yes Safety Concerns: Feels Safe At This Time Smoking Status: Current every day smoker Tobacco Type: cigarettes ; Cigarettes Per Day: 20 ; Do You Dip or Chew Tobacco: No ; Second Hand Exposure: No ; Tobacco Cessation Education Requested by Patient: No Hx Alcohol Use: No Hx Substance Use: No Review of Systems Review of Systems: All systems reviewed & are unremarkable except as noted in HPI & below Constitutional: no fever and no chills Eyes: + corrective lenses and + loss of peripheral vision Ear, Nose, Mouth, Throat: + tinnitus, + snoring and + dry mouth Respiratory: + cough, + dyspnea, + snoring and + wheezing; no hemoptysis Cardiovascular: + chest pain at rest, + dyspnea at rest and + palpitations; no radiating jaw, neck or arm pain and no syncope Genitourinary: no hematuria Musculoskeletal: + muscle weakness and + muscle atrophy Integumentary: no rash Psychiatric: + depression and + anxiety Endocrine: + fatigue Physical Exam Physical Exam: General: A&Ox3. NAD. HEENT: Normocephalic. Atraumatic. PER. Conjunctiva pink, sclera injected. Neck: Bilateral carotid bruits. No JVD. No HJR. Heart: Distant heart sounds. RRR at 80 bpm. I did not appreciate a murmur. PMI is nondisplaced. Lungs: Diminished. Decreased. Faint expiratory wheeze. Abdomen: +BS. Soft. Nontender. No masses or organomegaly. Extremities: Bilateral above knee amputations. Radial pulses are 2/4 bilaterally. Results & Data Vital Signs (Past 12 Hours) Vital Signs Temp Pulse Pulse Resp BP BP Pulse Ox 07/28/19 04:00 36.8 C 82 18 121/76 98 07/28/19 02:30 86 92 07/28/19 02:13 84 125/73 96 07/28/19 02:00 84 97 07/28/19 01:30 81 99 07/28/19 01:13 82 136/71 97 07/28/19 01:00 80 98 07/28/19 00:30 84 98 07/28/19 00:28 37 C 85 20 104/72 97 07/28/19 00:20 85 07/28/19 00:13 87 104/72 96 07/28/19 00:10 37.0 C 85 07/28/19 00:06 85 07/27/19 23:30 88 19 117/78 07/27/19 23:00 88 22 156/83 H 98 07/27/19 22:30 91 H 22 137/91 97 07/27/19 22:07 92 H 13 107/77 97 07/27/19 21:45 96 07/27/19 21:00 94 H 24 122/82 96 Pulse Ox 07/28/19 04:00 07/28/19 02:30 07/28/19 02:13 07/28/19 02:00 07/28/19 01:30 07/28/19 01:13 07/28/19 01:00 07/28/19 00:30 07/28/19 00:28 07/28/19 00:20 97 07/28/19 00:13 07/28/19 00:10 07/28/19 00:06 07/27/19 23:30 07/27/19 23:00 07/27/19 22:30 07/27/19 22:07 07/27/19 21:45 07/27/19 21:00 Laboratory Results Laboratory Results - last 24 hr 07/27/19 07/27/19 07/27/19 19:43 19:43 19:43 WBC 13.02 H RBC 4.52 L Hgb 13.1 L Hct 40.7 L MCV 90.0 MCH 29.0 MCHC 32.2 RDW Std Deviation 44.6 RDW Coeff of Taisha 13.5 Plt Count 326 MPV 11.0 H Immature Gran % (Auto) 0.2 Neut % (Auto) 77.8 Lymph % (Auto) 13.1 Childress % (Auto) 7.1 Eos % (Auto) 1.5 Baso % (Auto) 0.3 Immature Gran # (Auto) 0.02 Neut # (Auto) 10.14 H Lymph # (Auto) 1.70 Childress # (Auto) 0.92 H Eos # (Auto) 0.20 Baso # (Auto) 0.04 PT 10.0 INR 1.0 APTT 25.6 PTT Ratio 0.9 POC D-Dimer Sodium 138 Potassium 4.0 Chloride 102 Carbon Dioxide 27 Anion Gap 9.0 BUN 30 H Creatinine 0.97 Est Cr Clr Drug Dosing Not Reportable Est GFR ( Amer) 102.9 Est GFR (Non-Af Amer) 88.8 BUN/Creatinine Ratio 30.4 H Glucose 196 H POC Glucose Estimat Average Glucose Hemoglobin A1c Calcium 9.6 Magnesium Total Bilirubin 0.3 AST 10 L ALT 18 Alkaline Phosphatase 165 H POC Troponin I Troponin I Total Protein 7.5 Albumin 3.4 Globulin 4.1 H Albumin/Globulin Ratio 0.8 L Nasal Screen MRSA (PCR) 07/27/19 07/28/19 07/28/19 19:47 00:15 00:40 WBC RBC Hgb Hct MCV MCH MCHC RDW Std Deviation RDW Coeff of Taisha Plt Count MPV Immature Gran % (Auto) Neut % (Auto) Lymph % (Auto) Childress % (Auto) Eos % (Auto) Baso % (Auto) Immature Gran # (Auto) Neut # (Auto) Lymph # (Auto) Childress # (Auto) Eos # (Auto) Baso # (Auto) PT INR APTT PTT Ratio POC D-Dimer > 450 H* Sodium Potassium Chloride Carbon Dioxide Anion Gap BUN Creatinine Est Cr Clr Drug Dosing Est GFR ( Amer) Est GFR (Non-Af Amer) BUN/Creatinine Ratio Glucose POC Glucose Estimat Average Glucose Hemoglobin A1c Calcium Magnesium Total Bilirubin AST ALT Alkaline Phosphatase POC Troponin I 0.06 H Troponin I 0.034 Total Protein Albumin Globulin Albumin/Globulin Ratio Nasal Screen MRSA (PCR) Negative 07/28/19 07/28/19 07/28/19 00:57 05:30 06:16 WBC 10.18 RBC 4.35 L Hgb 12.4 L Hct 39.5 L MCV 90.8 MCH 28.5 MCHC 31.4 L RDW Std Deviation 45.1 RDW Coeff of Taisha 13.5 Plt Count 319 MPV 10.7 H Immature Gran % (Auto) 0.2 Neut % (Auto) 61.8 Lymph % (Auto) 28.5 Childress % (Auto) 7.3 Eos % (Auto) 1.9 Baso % (Auto) 0.3 Immature Gran # (Auto) 0.02 Neut # (Auto) 6.30 Lymph # (Auto) 2.90 Childress # (Auto) 0.74 H Eos # (Auto) 0.19 Baso # (Auto) 0.03 PT INR APTT PTT Ratio POC D-Dimer Sodium Potassium Chloride Carbon Dioxide Anion Gap BUN Creatinine Est Cr Clr Drug Dosing Est GFR ( Amer) Est GFR (Non-Af Amer) BUN/Creatinine Ratio Glucose POC Glucose 166 H 153 H Estimat Average Glucose Hemoglobin A1c Calcium Magnesium Total Bilirubin AST ALT Alkaline Phosphatase POC Troponin I Troponin I Total Protein Albumin Globulin Albumin/Globulin Ratio Nasal Screen MRSA (PCR) 07/28/19 07/28/19 07/28/19 06:16 06:16 06:16 WBC RBC Hgb Hct MCV MCH MCHC RDW Std Deviation RDW Coeff of Taisha Plt Count MPV Immature Gran % (Auto) Neut % (Auto) Lymph % (Auto) Childress % (Auto) Eos % (Auto) Baso % (Auto) Immature Gran # (Auto) Neut # (Auto) Lymph # (Auto) Childress # (Auto) Eos # (Auto) Baso # (Auto) PT INR APTT PTT Ratio POC D-Dimer Sodium 138 Potassium 3.7 Chloride 104 Carbon Dioxide 28 Anion Gap 6.0 BUN 27 H Creatinine 0.95 Est Cr Clr Drug Dosing 72.8 Est GFR ( Amer) 105.5 Est GFR (Non-Af Amer) 91.0 BUN/Creatinine Ratio 28.8 H Glucose 149 H POC Glucose Estimat Average Glucose 140 Hemoglobin A1c 6.5 H Calcium 9.0 Magnesium 2.2 Total Bilirubin AST ALT Alkaline Phosphatase POC Troponin I Troponin I 0.024 Total Protein Albumin Globulin Albumin/Globulin Ratio Nasal Screen MRSA (PCR) Diagnostic Findings Continuous telemetry monitoring reveals sinus rhythm with a right bundle branch block pattern. No significant bradycardia. No pauses. No atrial fibrillation/flutter. No ventricular tachycardia. Resting echocardiography: Obtained earlier this morning, results pending interpretation. (1) Pneumonia of both lower lobes Pneumonia type: due to unspecified organism Qualified Code(s): J18.9 - Pneumonia, unspecified organism
[2019-07-28] MEDS ORDERED: INSULIN GLARGINE SOLOSTAR 100 UNITS/ML 3 ML PEN SC SCH (09:00)
[2019-07-28] MEDS ORDERED: INSULIN GLARGINE SOLOSTAR 100 UNITS/ML 3 ML PEN SC ONE (09:00)
[2019-07-28] MEDS: carvediloL 3.125 MG TAB PO SCH ×2 (09:50→20:39)
[2019-07-28] MEDS: DOCUSATE SODIUM 100 MG CAP PO SCH ×2 (09:50→20:39)
[2019-07-28] MEDS: ASPIRIN 81 MG ECTAB PO SCH ×2 (09:50→20:39)
[2019-07-28] MEDS: DULOXETINE HCL 60 MG CAP PO SCH (09:50)
[2019-07-28] MEDS: DOXYCYCLINE HYCLATE 100 MG CAP PO SCH ×2 (09:51→20:38)
[2019-07-28] MEDS: FUROSEMIDE 80 MG TAB PO SCH (09:51)
[2019-07-28] MEDS: CLOPIDOGREL BISULFATE 75 MG TAB PO SCH (09:51)
[2019-07-28] MEDS: cefTRIAXone SODIUM 2,000 MG in DEXTROSE 5% 50 ML IV SCH (09:55)
--- NOTE | 2019-07-28 10:55 | Pharmacy Report ---
Pharmacy Glycemic Short Note 2 - Date of Service July 28, 2019 - Glycemic Short BSG Results (Last 24 hours): 07/27/19 07/28/19 07/28/19 19:43 00:57 05:30 Glucose 196 H POC Glucose 166 H 153 H 07/28/19 06:16 Glucose 149 H POC Glucose OUTPATIENT ANTIDIABETIC REGIMEN (per patient report): * Lantus 24 units BID * Metformin 500mg BID * A1c = 6.5% 07/28/19 ASSESSMENT: * Reasonably well controlled type 2 diabetic admitted for CP, SOB, r/o ACS, as well as PNA * Pt tests BSGs twice daily at home and reports BSGs in mid-100s on most checks with above regimen, denies hypoglycemic episodes * Pt is NPO for procedure this AM, will give reduced basal insulin dose this AM then resume a modified Lantus dose this evening as he will also be receiving prandial insulin with meals, which is new for him. Total daily insulin dose will be based upon ~70 units/day when tolerating a diet. PLAN FOR INPATIENT GLYCEMIC CONTROL: * Hold outpatient oral diabetes medications (metformin) * Basal insulin * Lantus 20 units SQ BID * Bolus insulin * NovoLog per scale ACHS or Q6hrs while NPO * Goal Range: Low 110 mg/dL - High 140 mg/dL * Correction Factor: 25 mg/dL/unit * Nutritional / Prandial insulin per carb ratio of 1 unit per 9 grams CHO consumed PLAN FOR DISCHARGE: * may resume home regimen of Lantus + metformin if no contraindications present at time of discharge
[2019-07-28] MEDS ORDERED: FERROUS SULFATE 325 MG TAB PO SCH (11:00)
[2019-07-28] MEDS: ISOSORBIDE MONO EXTENDED REL 30 MG TABCR PO SCH (11:23)
--- NOTE | 2019-07-28 17:21 | Hospitalist Progress Note ---
Date of Service July 28, 2019 Assessment & Plan (1) Chest pain: Chest pain : presented with substernal chest discomfort symptom has resolved with no recurrence of episode no acute ischemic change in EKG symptom has resolved CT chest negative for PE appreciate cardiology eval started on Imdur Continue his home medication of Coreg, Plavix, aspirin and statin. Shortness of breath, pneumonia on CAT scan. Received Zosyn in the Emergency Room. started on Rocephin and doxycycline. Follow the cultures. Bilateral axillary lymphadenopathy / mediastinal lymphadenopathy, will need biopsy surgery consulted History of chronic combined systolic and diastolic congestive heart failure vol status stable on Lasix, lisinopril and Coreg. Peripheral vascular disease, status post bilateral above knee amputation. He also has 100% right coronary artery occlusion and 50% to 60% left internal carotid occlusion. Follows up with Vascular Surgery. On aspirin, statin and Plavix-continued Obstructive sleep apnea. on 2 L home 02 desaturation noted while pt is sleeping ordered for CPAP nocturnal pulse oximetry TYPE 2 DM on insulin hold metformin insulin SSI resume basal lantus with home dose History of MCA stroke right-sided weakness. On aspirin, statin and Plavix. Deep vein thrombosis prophylaxis. moderate to high risk sub q heparin ordered Full Code status Subjective no complain of chest pain or chest heaviness has not had any symptom since admission does not have any cough no SOB no fever or chills asking about when he will be able to return home Physical Exam Constitutional: WD/WN, vitals as above no acute distress Eyes: + anicteric sclerae ENMT: external ear and nose normal, oropharynx normal Neck: trachea midline, no thyromegaly Respiratory: + cough Auscultation: + diminished lung sounds Cardiovascular: Rate/Rhythm: regular rate and regular rhythm Gastrointestinal (Abdomen): Inspection/Auscultation: normal bowel sounds Percussion/Palpation: abdomen soft; abdomen nontender Musculoskeletal: Extremities: + extremities abnormal to inspection (bilateral below knee amputation ) Neurologic: PERRL, EOMI, accommodation nl, no face palsy, no dysarthria Psychiatric: A+Ox3, euthymic affect Results & Data Vital Signs (Past 12 Hours) Vital Signs Temp Pulse Pulse Resp BP BP Pulse Ox 07/28/19 16:00 95 H 20 07/28/19 15:47 36.7 C 88 16 118/74 98 07/28/19 11:13 84 129/82 97 07/28/19 10:13 77 160/86 H 99 07/28/19 09:13 78 127/75 96 07/28/19 09:00 79 97 07/28/19 08:13 78 131/72 97 07/28/19 07:13 84 121/66 97
[2019-07-28] MEDS ORDERED: Nursing to Pharmacy Communication ONE (19:10)
[2019-07-28] MEDS: INSULIN GLARGINE SOLOSTAR 100 UNITS/ML 3 ML PEN SC SCH (20:39)
[2019-07-28] MEDS ORDERED: GABAPENTIN 300 MG CAP PO SCH (21:00)
[2019-07-28] MEDS ORDERED: AMITRIPTYLINE HCL 25 MG TAB PO SCH (21:00)
[2019-07-28] MEDS ORDERED: ATORVASTATIN 40 MG TAB PO SCH (21:00)
[2019-07-29 07:24] VITALS: PULSE 79
[2019-07-29 07:38] VITALS: BP 129/81; TEMP 98.4; O2SAT 95
[2019-07-29] MEDS: INSULIN GLARGINE SOLOSTAR 100 UNITS/ML 3 ML PEN SC SCH (08:24)
[2019-07-29] MEDS: DOXYCYCLINE HYCLATE 100 MG CAP PO SCH (08:25)
[2019-07-29] MEDS: ASPIRIN 81 MG ECTAB PO SCH (08:25)
[2019-07-29] MEDS: DULOXETINE HCL 60 MG CAP PO SCH (08:25)
[2019-07-29] MEDS: FUROSEMIDE 80 MG TAB PO SCH (08:25)
[2019-07-29] MEDS: ISOSORBIDE MONO EXTENDED REL 30 MG TABCR PO SCH (08:25)
[2019-07-29] MEDS: DOCUSATE SODIUM 100 MG CAP PO SCH (08:25)
[2019-07-29] MEDS: carvediloL 3.125 MG TAB PO SCH (08:25)
[2019-07-29] MEDS: CLOPIDOGREL BISULFATE 75 MG TAB PO SCH (08:26)
--- NOTE | 2019-07-29 08:32 | Surgery Consultation ---
Date of Consultation July 29, 2019 Assessment & Plan (1) Chest pain: (2) Lymphadenopathy: Unclear etiology. Clinically asymptomatic. Being new onset my recommendation is that he follow-up with me in the office. We will re-image him in 6 to 8 weeks. If the lymphadenopathy persists or enlarges we will need to schedule a needle localization with excisional biopsy as an outpatient. If they get smaller we may be able to forego any procedure altogether. Patient is agreement with plan. We will sign off. He is to follow-up with me in the office in 1 to 2 weeks. History of Present Illness Attending Physician: Amie Mckay MD History of Present Illness Patient presented with a new onset shortness of breath and chest pain. He was admitted by hospitalist started on antibiotics. Imaging revealed mediastinal and bilateral axillary lymphadenopathy. The patient denied any prior symptoms such as weight loss severe fatigue malaise night sweats etc. He denies any recent history of similar chest pain or shortness of breath. Allergies Allergy/AdvReac Type Severity Reaction Status Date / Time No Known Allergies Allergy Verified 07/27/19 19:50 Home Medications Home Medications Medication Instructions Recorded Confirmed Type oxycodone-acetaminophen [Percocet] 1 tab PO TID PRN #0 tab 02/24/17 07/27/19 History amitriptyline 25 mg PO HS #0 tab 06/16/17 07/27/19 History aspirin 81 mg PO BID #0 06/16/17 07/27/19 History atorvastatin [Lipitor] 80 mg PO QPM #0 tab 06/16/17 07/27/19 History carvedilol [Coreg] 3.125 mg PO BID #0 tab 06/16/17 07/27/19 History docusate sodium [Colace] 100 mg PO BID #0 cap 06/16/17 07/27/19 History furosemide [Lasix] 80 mg PO QAM #0 tab 06/16/17 07/27/19 History nitroglycerin [Nitrostat] 0.4 mg SUBLINGUAL UD PRN #0 btl 06/16/17 07/27/19 History acetaminophen [Tylenol Extra 1,000 mg PO QID PRN 04/30/19 07/27/19 History Strength] duloxetine [Cymbalta] 60 mg PO QAM 04/30/19 07/27/19 History clopidogrel 75 mg PO QAM 30 Days #30 tab 05/02/19 07/27/19 Rx ferrous sulfate [iron] 0 mg PO DAILY 07/27/19 07/27/19 History gabapentin 300 mg PO HS 07/27/19 07/27/19 History insulin glargine [Lantus Solostar 34 unit SUBCUT BID 07/27/19 07/27/19 History U-100 Insulin] metformin 500 mg PO BID 07/27/19 07/27/19 History Patient History Medical History Diabetes type 2, controlled Family History Other No pertinent family history in first degree relatives Social History Preferred Language: Wolof Communication Ability: Effective Television News Photographer Required: No Beliefs That Will Affect Care: None marital status: Life Partner Current Living Situation: Family Current Living Situation Comment: lives with son Feels Safe at Home: Yes Safety Concerns: Feels Safe At This Time Smoking Status: Current every day smoker Tobacco Type: cigarettes ; Cigarettes Per Day: 20 ; Do You Dip or Chew Tobacco: No ; Second Hand Exposure: No ; Tobacco Cessation Education Requested by Patient: No Hx Alcohol Use: No Hx Substance Use: No Review of Systems Review of Systems: All systems reviewed & are unremarkable except as noted in HPI & below Physical Exam Constitutional: WD/WN, vitals as above no acute distress and not ill appearing Eyes: PERRL, conjunctivae normal, anicteric sclerae EOM intact bilaterally ENMT: external ear and nose normal, oropharynx normal Ears: no hearing impairment Neck: trachea midline, no thyromegaly Respiratory: normal respiratory effort; no respiratory distress and does not use accessory muscles Cardiovascular: Rate/Rhythm: regular rate and regular rhythm Gastrointestinal (Abdomen): normal bowel sounds, soft, nontender, no hepatosplenomegaly Musculoskeletal: Bilateral lower extremity amputee. No palpable supraclavicular or axillary lymphadenopathy. Skin: no rashes, warm and dry Psychiatric: Orientation: alert, oriented x 3 and cooperative Results & Data Vital Signs (Past 12 Hours) Vital Signs Temp Pulse Pulse Pulse Resp BP Pulse Ox 07/29/19 07:38 36.9 C 79 18 129/81 95 07/29/19 07:23 79 07/29/19 03:15 36.8 C 80 16 119/74 94 07/29/19 00:51 78 07/29/19 00:00 36.8 C 85 77 20 115/78 99 07/28/19 23:06 79 07/28/19 21:48 79 Pulse Ox 07/29/19 07:38 07/29/19 07:23 07/29/19 03:15 07/29/19 00:51 98 07/29/19 00:00 07/28/19 23:06 07/28/19 21:48 98 PG Care Time/CCT Total # of Minutes Spent Total Time Spent with Patient: Total time spent is greater than 50% in coordination of care (as documented) at patient's floor/unit and/or counseling patient:
[2019-07-29] MEDS: INSULIN ASPART 100 UNITS/ML 3 ML PEN SC SCH ×2 (08:37→12:16)
[2019-07-29] MEDS: cefTRIAXone SODIUM 2,000 MG in DEXTROSE 5% 50 ML IV SCH (08:41)
--- NOTE | 2019-07-29 09:55 | Hospitalist Progress Note ---
Date of Service July 29, 2019 Subjective Attending note: Patient noted to have brief episodes of desaturation while sleeping, Nocturnal pulse oximetry done on 2 L oxygen via nasal cannula, Full desaturation episodes noted, SPO2 44% noted for brief seconds while on 2 L Patient will be discharged home on 3 L oxygen at bedtime via nasal cannula Will need formal sleep study for CPAP at night Which will be scheduled at [facility] sleep lab with sleep medicine Patient is stable to be discharged home today Prescription given for 3 L oxygen at nasal cannula Amie Mckay MD Results & Data Vital Signs (Past 12 Hours) Vital Signs Temp Pulse Pulse Pulse Resp BP Pulse Ox 07/29/19 07:38 36.9 C 79 18 129/81 95 07/29/19 07:23 79 07/29/19 03:15 36.8 C 80 16 119/74 94 07/29/19 00:51 78 07/29/19 00:00 36.8 C 85 77 20 115/78 99 07/28/19 23:06 79 Pulse Ox 07/29/19 07:38 07/29/19 07:23 07/29/19 03:15 07/29/19 00:51 98 07/29/19 00:00 07/28/19 23:06
--- NOTE | 2019-07-29 12:40 | Discharge Summary ---
Date of Service July 29, 2019 Admission HPI Per Admitting Provider DICTATED BY: Manuel Jim MD DATE OF ADMISSION: 07/27/2019 CHIEF COMPLAINT: Chest pain, shortness of breath. 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 associated with type 2 diabetes, peripheral vascular disease, status post right AKA and status post left AKA, chronic combined systolic and diastolic congestive heart failure, history of ischemic right MCA stroke, bilateral carotid artery stenosis, right bundle-branch block, [id number] pulmonary hypertension, coronary artery disease, chronic kidney disease stage III, chronic pain syndrome and iron deficiency anemia who lives with his son who came here because of shortness of breath and chest pressure symptoms started around 5:00 p.m., was very short of breath, he could not take deep breath. He has some dry cough and he also had some chest pressure. For this reason, he came to the Emergency Room. Nitro relieved his pain. He is currently on oxygen 2 liters. He is saturating fine. He recently had a sleep study done. He is supposed to follow up for his further sleep studies. As per the Cardiology notes, in November, he was supposed to be started on Imdur, but the patient is not taking Imdur. Denies any sweating. No nausea. No headache. No blurred vision. No earache. No runny nose. No sore throat. Currently, he is eating regular food and swallows okay. No night sweats. No recent weight gain or weight loss. No abdominal pain. Normal bowel and bladder movements. No hematuria or burning micturition. No melena or hematochezia. Currently resting comfortably and hemodynamically stable. Principal Diagnosis CHEST PAIN , NON CARDIAC /PNEUMONIA /CHRONIC HYPOXIA /RESPIRATORY FAILURE NEEDS HOME Discharge Exam Constitutional WD/WN, vitals as above no acute distress Eyes + anicteric sclerae ENMT external ear and nose normal, oropharynx normal Neck trachea midline, no thyromegaly Respiratory + cough Auscultation: + diminished lung sounds Cardiovascular Rate/Rhythm: regular rate and regular rhythm Gastrointestinal (Abdomen) Inspection/Auscultation: normal bowel sounds Percussion/Palpation: abdomen soft; abdomen nontender Musculoskeletal Extremities: + extremities abnormal to inspection (bilateral below knee amputation ) Neurologic PERRL, EOMI, accommodation nl, no face palsy, no dysarthria Psychiatric A+Ox3, euthymic affect Discharge Data Allergies Allergy/AdvReac Type Severity Reaction Status Date / Time No Known Allergies Allergy Verified 07/27/19 19:50 Consultations 07/27/19 22:17 ED Decision to Admit Stat 07/28/19 00:20 Consult Case Management - Discharge Planning Routine 07/28/19 08:00 Consult Cardiology Routine Consult General Surgery Routine Ordered Studies 07/27/19 20:39 CT angio chest PE protocol Stat Hospital Course (1) Chest pain: Chest pain : presented with substernal chest discomfort symptom has resolved with no recurrence of episode no acute ischemic change in EKG CT chest negative for PE appreciate cardiology eval ECHO shows : wall motion abnormality in septal and anterior wall started on Imdur 30 MG DAILY Continue his home medication of Coreg, Plavix, aspirin and statin. pt will need close follow up with cardiology in 1-2 weeks , Shortness of breath, pneumonia on CAT scan. Received Zosyn in the Emergency Room. started on Rocephin and doxycycline. no cough or fever or chills will be discharged with PO Doxycycline Bilateral axillary lymphadenopathy / mediastinal lymphadenopathy, surgery consulted appreciate input recommends out pt follow up in clinic repeat imaging , if repeat CT chest shows persisted or worsening of axially and mediastinal lymphadenopathy -will need excision biopsy prior to biopsy -surgery team will need to co ordinate with Family physician to hold Plavix at least 5-7 days prior to procedure pt is agreeable with the plan History of chronic combined systolic and diastolic congestive heart failure vol status stable on Lasix, lisinopril and Coreg. Peripheral vascular disease, status post bilateral above knee amputation. He also has 100% right coronary artery occlusion and 50% to 60% left internal carotid occlusion. Follows up with Vascular Surgery. On aspirin, statin and Plavix-continued Obstructive sleep apnea. not on home 02 desaturation noted while pt is sleeping Nocturnal pulse oximetry done on 2 L oxygen via nasal cannula, desaturation episodes noted, lowest SPO2 44% noted for brief seconds while on 2 L Patient will be discharged home on 3 L oxygen at bedtime via nasal cannula Will need formal sleep study for CPAP at night Which will be scheduled at [facility] sleep lab with sleep medicine Patient is stable to be discharged home today Prescription given for 3 L oxygen at nasal cannula TYPE 2 DM on insulin metformin was kept on hold during hospital stay , will be resumed on discharge insulin SSI resume basal lantus with home dose History of MCA stroke right-sided weakness -chronic . On aspirin, statin and Plavix. Deep vein thrombosis prophylaxis. moderate to high risk sub q heparin ordered Full Code status DISPOSITION : lives with son active with [facility] stable to be discharged home today Total Time Total Time Spent Total Time Spent (In Minutes): approx 45 mins Total Time Includes: Examination of the Patient, Discharge Planning and Medication Reconciliation Discharge Plan Discharge Items Patient Disposition: Home - Home Health Services Reason For Visit: SOB, CHEST PAIN Discharge Diagnosis: CHEST PAIN , NON CARDIAC /PNEUMONIA /CHRONIC HYPOXIA /RESPIRATORY FAILURE NEEDS HOME 02 /LYMPHADENOPATHY Activity: Resume your previous activity Non-emergency contact: Primary Care Provider Call non-emergency contact if: you have any medication questions Follow-up/Referrals: Mesfin Duran DO [Surgeon] - Hamilton Whalen DO [Abalone Sheller] - Jac Barnes MD [Primary Care Provider] - Diet: Carb Consistent or DM2 and Heart Healthy Addtl Attending Provider Instructions: HOSPITAL FOLLOW UP WITH DR BARNES IN A WEEK , OFFICE WILL CALL WITH APPOINTMENT CARDIOLOGY FOLLOW UP IN 1 WEEK lymphadanopahty : follow up with surgery Dr Duran in 1-2 weeks repeat imaging /CT chest in 6 to 8 weeks. If the lymphadenopathy persists or enlarges will need to schedule a needle localization with excisional biopsy as an outpatient. SLEEP STUDY AT [facility] APNEA /QUALIFYING FOR CPAP Pending Studies at Discharge: Yes Studies:: repeat imaging /CT chest in 6 to 8 weeks for mediastinal lymphadenopathy Stand-Alone Forms: My [facility], Smoking Cessation Medications and DC Order Prescriptions: New doxycycline hyclate 100 mg Capsule 100 mg PO BID 7 Days Qty: 14 RF: 0 isosorbide mononitrate 30 mg tablet extended release 24 hr 30 mg PO DAILY Qty: 30 RF: 3 Continued oxycodone-acetaminophen [Percocet] 10-325 mg Tablet 1 tab PO TID PRN (Reason: Pain) Qty: 0 RF: 0 atorvastatin [Lipitor] 80 mg Tablet 80 mg PO QPM Qty: 0 RF: 0 amitriptyline 25 mg Tablet 25 mg PO HS Qty: 0 RF: 0 furosemide [Lasix] 80 mg Tablet 80 mg PO QAM Qty: 0 RF: 0 nitroglycerin [Nitrostat] 0.4 mg Tablet, Sublingual 0.4 mg sublingual UD PRN (Reason: Chest Pain) Qty: 0 RF: 0 aspirin 81 mg Tablet,Delayed Release (Dr/Ec) 81 mg PO BID Qty: 0 RF: 0 carvedilol [Coreg] 3.125 mg Tablet 3.125 mg PO BID Qty: 0 RF: 0 docusate sodium [Colace] 100 mg Capsule 100 mg PO BID Qty: 0 RF: 0 acetaminophen [Tylenol Extra Strength] 500 mg Tablet 1,000 mg PO QID PRN (Reason: Pain) RF: 0 duloxetine [Cymbalta] 60 mg Capsule,Delayed Release(Dr/Ec) 60 mg PO QAM RF: 0 clopidogrel 75 mg Tablet 75 mg PO QAM 30 Days Qty: 30 RF: 2 gabapentin 300 mg capsule 300 mg PO HS RF: 0 metformin 500 mg tablet extended release 24 hr 500 mg PO BID RF: 0 Lantus Solostar U-100 Insulin 100 unit/mL (3 mL) insulin pen 34 unit SUBCUT BID RF: 0 ferrous sulfate [iron] 325 mg (65 mg iron) Tablet 0 mg PO DAILY RF: 0 Discharge Orders: Discharge Order (Routine); Ordered 07/29/19 Ordered By: Amie Mckay Admission Data Admit Date/Time: 07/27/19 23:18 Attending Provider: Amie Mckay Admit Provider: Manuel Jim Primary Care Provider: Jac Barnes Other Providers: Manuel Jim ; Jamar Gold ; Hamilton Whalen ; Eben Coelho ; Roger Corona ; Rah Ariza ; Jae Diaz ; Candy Aceves ; Zulma Jalloh ; Kush Marie ; Jae Roman ; Claudia Kumar ; Roger Henley ; Soha Thomas ; Mumtaz Garcia ; Rah Jaramillo ; Josselin West ; German Ospina ; Avelina Douglass ; Marcelo Flower Jr ; Aditi Dave ; María Cabrera Other Interventions: Discharge Summary Assessment (RN) Last Done: 07/29/19 10:57 DC Date/Time DO NOT enter until pt leaves facility: 07/29/19 12:18
== END 2019-07-29 12:18 | disposition home health service (06) | DRG 194 ==
LOC: ED 18:28 → 1E 23:18 → 2E 07-28 15:11
DX: E11.22 Type 2 diabetes mellitus with diabetic chronic kidney disease; Z79.4 Long term (current) use of insulin; I50.42 Chronic combined systolic (congestive) and diastolic (congestive) heart failure; R59.1 Generalized enlarged lymph nodes; Z89.611 Acquired absence of right leg above knee; I65.23 Occlusion and stenosis of bilateral carotid arteries; E78.5 Hyperlipidemia, unspecified; I25.5 Ischemic cardiomyopathy; E11.319 Type 2 diabetes mellitus with unspecified diabetic retinopathy without macular edema; E11.51 Type 2 diabetes mellitus with diabetic peripheral angiopathy without gangrene; J18.9 Pneumonia, unspecified organism; G81.91 Hemiplegia, unspecified affecting right dominant side; I25.2 Old myocardial infarction; N18.3 Chronic kidney disease, stage 3 (moderate); R07.89 Other chest pain; Z79.02 Long term (current) use of antithrombotics/antiplatelets; R79.89 Other specified abnormal findings of blood chemistry; Z86.73 Personal history of transient ischemic attack (TIA), and cerebral infarction without residual deficits; Z79.82 Long term (current) use of aspirin; G47.33 Obstructive sleep apnea (adult) (pediatric); J96.11 Chronic respiratory failure with hypoxia; I13.10 Hypertensive heart and chronic kidney disease without heart failure, with stage 1 through stage 4 chronic kidney disease, or unspecified chronic kidney disease; F17.200 Nicotine dependence, unspecified, uncomplicated; F32.9 Major depressive disorder, single episode, unspecified; G89.4 Chronic pain syndrome; Z89.612 Acquired absence of left leg above knee; I27.20 Pulmonary hypertension, unspecified; I45.10 Unspecified right bundle-branch block